=== PATIENT | male | born 1955 | race Caucasian/White ===

== ENCOUNTER → 2016-12-21 | Outpatient (CLI) | payer MEDICARE, MEDICAID ==
[~2016-12-21] MED LIST: ALBU8.5H2 IH; FRSM40T PO; HCTZ; KCL10CCR PO; LISINOPRIL; Prednisone PO; RT-ADVAIR1 IH; RT-ALBUTEROL SULF 2.5 MG/3 ML PRE-MIX VIAL INH ONE; RT-ALBUTEROL SULF 2.5 MG/3 ML PRE-MIX VIAL ONE; Tiotropium Bromide IH; b/p med
== END ==
LOC: RT 15:36
PROVIDERS: ATTEND Nurse Practitioner Family
DX: J44.9 Chronic obstructive pulmonary disease, unspecified (principal); J96.11 Chronic respiratory failure with hypoxia
CPT/HCPCS: 94060; 94640; 94726; 94729

== ENCOUNTER 2017-03-05 23:49 | Inpatient (IN) | payer MEDICARE, MEDICAID ==
[~2017-03-05] VITALS: Ht 160 cm; Wt 75.3 kg
[2017-03-05] MEDS: NS IV 1000 ML 1,000 ML IV SCH (22:45)
[~2017-03-05 23:49] MED LIST changes: -RT-ALBUTEROL SULF 2.5 MG/3 ML PRE-MIX VIAL INH ONE; -RT-ALBUTEROL SULF 2.5 MG/3 ML PRE-MIX VIAL ONE
[2017-03-05] MEDS ORDERED: NS IV 1000 ML 1,000 ML IV ONE (23:57)
[2017-03-05] MEDS ORDERED: RT-ALBUTEROL SULF 2.5 MG/3 ML PRE-MIX VIAL INH STA (23:57)
[2017-03-06] VITALS (56 sets, daily range): BP systolic 59–158; BP diastolic 9–100
[2017-03-06] MEDS ORDERED: RT-IPRATROPIUM (ATROVENT) 0.5MG/2.5ML AMP IH ONE
[2017-03-06] MEDS ORDERED: RT-ALBUTEROL SULF 2.5 MG/3 ML PRE-MIX VIAL ONE
[2017-03-06] MEDS ORDERED: methylPREDNISolone 125 MG (Solu-MEDROL) VIAL IVP ONE
[2017-03-06 00:15] LABS: BASOPHILS % (AUTO) 0 % (0-10); EOSINOPHILS # (AUTO) 0.1 10^3/uL (0.0-0.3); EOSINOPHILS % (AUTO) 1 % (0-10); LYMPHOCYTES # (AUTO) 0.9 X 10^3 (1.0-4.0); MEAN CORPUSCULAR HEMOGLOBIN 30 PG (25-34); MEAN CORPUSCULAR HGB CONC 31 G/DL (32-36); MEAN CORPUSCULAR VOLUME 98 FL (80-99); MEAN PLATELET VOLUME 9.8 FL (7.4-10.4); NEUTROPHILS # (AUTO) 10.6 X 10^3 (1.8-7.8); PLATELET COUNT 208 10^3/uL (130-400); RED CELL DISTRIBUTION WIDTH 12.6 % (10.0-14.5); WHITE BLOOD COUNT 12.6 10^3/uL (4.3-11.0)
[2017-03-06] MEDS ORDERED: MONT10TA24 PO (00:15)
[2017-03-06] MEDS ORDERED: FLUT1AER INH (00:15)
[2017-03-06 00:16] LABS: LYMPHOCYTES % (AUTO) 9 % (12-44); NEUTROPHILS % (AUTO) 83 % (42-75)
[2017-03-06 00:17] LABS: MONOCYTES % (AUTO) 7 % (0-12)
[2017-03-06 00:23] LABS: ABG BASE EXCESS 21.2 MMOL/L (-2.5-2.5); ABG OXYGEN SATURATION 99 % (94-100); ABG PO2 131 MMHG (79-93); ABG TCO2 54.5 MMOL/L (21.0-31.0)
[2017-03-06 00:24] LABS: ALLENS TEST YES-POS
[2017-03-06 00:24] LABS: PROTHROMBIN TIME PATIENT 12.8 SEC (12.2-14.7)
[2017-03-06 00:26] LABS: ABG HCO3 50 MMOL/L (23-27); ABG PCO2 139 MMHG (35-45); ABG PH 7.18 (7.37-7.43)
[2017-03-06 00:36] LABS: ALANINE AMINOTRANSFERASE 11 U/L (0-55); ALCOHOL < 10 MG/DL (<10); ANION GAP 15 MMOL/L (5-14); ASPARTATE AMINO TRANSFERASE 16 U/L (5-34); BILIRUBIN,TOTAL 0.2 MG/DL (0.1-1.0); BLOOD UREA NITROGEN 23 MG/DL (7-18); BUN/CREATININE RATIO 34; CALCIUM 9.5 MG/DL (8.5-10.1); CARBON DIOXIDE 40 MMOL/L (21-32); CHLORIDE 90 MMOL/L (98-107); CREATININE SERUM 0.67 MG/DL (0.60-1.30); GFR ESTIMATED > 60; GLUCOSE 174 MG/DL (70-105); POTASSIUM 4.1 MMOL/L (3.6-5.0); SODIUM 145 MMOL/L (135-145); TOTAL PROTEIN 7.6 G/DL (6.4-8.2)
--- NOTE | 2017-03-06 00:54 | ED Respiratory ---
General Chief Complaint: Respiratory Problems Stated Complaint: SOB Nursing Triage Note: EMS arrival of pt with SOA for several days but significantly worse the last 4 hrs. Found on home O2 concentrator on 8L with 54% sat. EMS states he has missed doing some breathing txs. EMS DuoNeb being given with improvement to 97% and some wheezing now noted Source: patient Exam Limitations: no limitations History of Present Illness Time seen by provider: 23:51 Initial Comments This 61-year-old patient is brought to the emergency room via EMS in respiratory distress. EMS reports that he was on 8 L on his home concentrator with an oxygen saturation of 54 percent. He promptly received a DuoNeb treatment and his oxygen saturation on high flow mask improved to 97 percent. He has been afebrile but has had increasing dyspnea over the last 4 days and has been in distress for about 4 hours. He has missed some of his nebulizer treatments which he is supposed to do 4 times daily. He also continues to smoke. Review of chart notes that he previously drank alcohol daily but he now states his alcohol consumption is "occasional". His primary care provider is Norbert Soni. EMS reports patient had confusion which is now improving. Patient continues to smoke despite his respiratory difficulties. Allergies and Home Medications Allergies Coded Allergies: No Known Drug Allergies (Unverified , 10/02/09) Home Medications Albuterol 8.5 Gm Hfa.aer.ad, 1 PUFF IH Q4H PRN for WHEEZING, #1 Ref 1 1 PUFFS Prescribed by: SAROJ SHAFER on 01/29/15 1145 Fluticasone/Salmeterol 1 Puff Puff, 2 PUFF IH BID@08,20, #1 Ref 1 Prescribed by: SAROJ SHAFER on 01/29/15 1145 Fluticasone/Vilanterol 1 Each Blst.w.dev, #60 (Reported) Montelukast Sodium 10 Mg Tablet, #30 (Reported) [Tiotropium Otto] 1 INH AERP, 0 INH IH DAILY@0800 for 30 Days, Ref 1 Prescribed by: SAROJ SHAFER on 01/29/15 1145 Constitutional: no symptoms reported EENTM: no symptoms reported Respiratory: see HPI Cardiovascular: no symptoms reported Gastrointestinal: no symptoms reported Genitourinary: no symptoms reported Musculoskeletal: no symptoms reported Skin: no symptoms reported Psychiatric/Neurological: See HPI Hematologic/Lymphatic: No Symptoms Reported Immunological/Allergic: no symptoms reported Past Nmxqzlm-Qwuuvt-Zahncw Hx Patient Social History Alcohol Use: Denies Use Recreational Drug Use: No Smoking Status: Current Everyday Smoker Type Used: Cigarettes Recent Foreign Travel: No Contact w/Someone Who Travel: No Recent Infectious Disease Expo: No Immunizations Up To Date Tetanus Booster (TDap): Unknown Surgeries HX Surgeries: Yes (HERNIA,LIVER LAC.,LEFT LEG PIN,JAW SURG.) Surgeries: Abdominal, Orthopedic Respiratory Hx Respiratory Disorders: Yes (tobacco is about) Respiratory Disorders: Asthma, Pneumonia, COPD Cardiovascular Hx Cardiac Disorders: Yes (diastolic heart failure with normal ejection fraction) Cardiac Disorders: High Cholesterol, Hypertension, Valvular Heart Disease Neurological Hx Neurological Disorders: No Reproductive System Hx Reproductive Disorders: No Genitourinary Hx Genitourinary Disorders: No Gastrointestinal Hx Gastrointestinal Disorders: No Musculoskeletal Hx Musculoskeletal Disorders: Yes Musculoskeletal Disorders: Degenerate Disk Disease Endocrine Hx Endocrine Disorders: No HEENT HX ENT Disorders: No Cancer Hx Cancer: No Psychosocial Hx Psychiatric Problems: Yes (history of alcohol dependence) Integumentary HX Skin/Integumentary Disorder: No Blood Transfusions Hx Blood Disorders: No Family Medical History Significant Family History: No Pertinent Family Hx Family Medial History: Completed stroke 19 MOTHER FH: brain tumor 19 FATHER FH: brain tumor 19 FATHER No Family History of: AIDS Physical Exam Vital Signs Vital Sign - Last 12Hours 03/05/17 23:52 Temp 98.0 Pulse 112 Resp 40 B/P (MAP) 164/92 Pulse Ox 99 O2 Delivery Simple Mask O2 Flow Rate 8.00 Capillary Refill : Less Than 3 Seconds General Appearance: WD/WN, severe distress, thin HEENT: PERRL/EOMI, normal ENT inspection Neck: normal inspection Respiratory: respiratory distress, decreased breath sounds, wheezing Cardiovascular: no edema, tachycardia Gastrointestinal: normal bowel sounds, non tender, soft Extremities: normal inspection, no pedal edema 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, no motor/sensory deficits, alert, normal mood/affect, oriented x 3 Skin: normal color, warm/dry Focused Exam Lactic Acid Level Laboratory Tests Test 03/06/17 00:03 Lactic Acid Level 0.78 MMOL/L (0.50-2.00) Progress/Results/Core Measures Results/Orders Lab Results Laboratory Tests Test 03/06/17 00:03 03/06/17 00:09 Range/Units White Blood Count 12.6 H 4.3-11.0 10^3/uL Red Blood Count 4.50 4.35-5.85 10^6/uL Hemoglobin 13.6 13.3-17.7 G/DL Hematocrit 44 40-54 % Mean Corpuscular Volume 98 80-99 FL Mean Corpuscular Hemoglobin 30 25-34 PG Mean Corpuscular Hemoglobin Concent 31 L 32-36 G/DL Red Cell Distribution Width 12.6 10.0-14.5 % Platelet Count 208 130-400 10^3/uL Mean Platelet Volume 9.8 7.4-10.4 FL Neutrophils (%) (Auto) 83 H 42-75 % Lymphocytes (%) (Auto) 9 L 12-44 % Monocytes (%) (Auto) 7 0-12 % Eosinophils (%) (Auto) 1 0-10 % Basophils (%) (Auto) 0 0-10 % Neutrophils # (Auto) 10.6 H 1.8-7.8 X 10^3 Lymphocytes # (Auto) 0.9 L 1.0-4.0 X 10^3 Monocytes # (Auto) 1.0 0.0-1.0 X 10^3 Eosinophils # (Auto) 0.1 0.0-0.3 10^3/uL Basophils # (Auto) 0.0 0.0-0.1 10^3/uL Prothrombin Time 12.8 12.2-14.7 SEC INR Comment 1.0 0.8-1.4 Activated Partial Thromboplast Time 26 24-35 SEC Sodium Level 145 135-145 MMOL/L Potassium Level 4.1 3.6-5.0 MMOL/L Chloride Level 90 L 98-107 MMOL/L Carbon Dioxide Level 40 H 21-32 MMOL/L Anion Gap 15 H 5-14 MMOL/L Blood Urea Nitrogen 23 H 7-18 MG/DL Creatinine 0.67 0.60-1.30 MG/DL Estimat Glomerular Filtration Rate > 60 BUN/Creatinine Ratio 34 Glucose Level 174 H 70-105 MG/DL Lactic Acid Level 0.78 0.50-2.00 MMOL/L Calcium Level 9.5 8.5-10.1 MG/DL Total Bilirubin 0.2 0.1-1.0 MG/DL Aspartate Amino Transf (AST/SGOT) 16 5-34 U/L Alanine Aminotransferase (ALT/SGPT) 11 0-55 U/L Alkaline Phosphatase 67 40-136 U/L Total Protein 7.6 6.4-8.2 G/DL Albumin 4.0 3.2-4.5 G/DL Serum Alcohol < 10 <10 MG/DL Blood Gas Puncture Site L BRACH Blood Gas Patient Temperature 98.0 Arterial Blood pH 7.18 *L 7.37-7.43 Arterial Blood Partial Pressure CO2 139 *H 35-45 MMHG Arterial Blood Partial Pressure O2 131 H 79-93 MMHG Arterial Blood HCO3 50 *H 23-27 MMOL/L Arterial Blood Total CO2 54.5 H 21.0-31.0 MMOL/L Arterial Blood Oxygen Saturation 99 94-100 % Arterial Blood Base Excess 21.2 H -2.5-2.5 MMOL/L Tirso Test YES-POS Blood Gas Ventilator Setting NO Blood Gas Inspired Oxygen 5L My Orders Orders - HAO GOODRICH MD Cbc With Automated Diff (03/05/17 23:57) Comprehensive Metabolic Panel (03/05/17:57) Lactic Acid Analyzer (03/05/17 23:57) Blood Culture (03/05/17 23:57) Sputum Culture (03/05/17:57) Ua Culture If Indicated (03/05/17:57) Protime With Inr (03/05/17:57) Partial Thromboplastin Time (03/05/17:57) O2 (03/05/17:57) Saline Lock/Iv-Start (03/05/17 23:57) Saline Lock/Iv-Start (03/05/17 23:57) Vital Signs Adult Sepsis Patie Q1HR (03/05/17 23:57) Remove Rings In Anticipation O (03/05/17 23:57) Arterial Blood Gas (03/05/17 23:57) Methylprednisolone Sod Succ (Solu-Medrol (03/06/17 00:00) Ns Iv 1000 Ml (Sodium Chloride 0.9%) (03/05/17 23:57) Albuterol Pre-Mix Nebs (Rt) (Proventil P (03/05/17 23:57) Ipratropium 0.02% Neb Solution (Atrovent (03/06/17 00:00) Svn Sm Volume Nebulizer Rt-Rfs (03/05/17 23:57) Svn Sm Volume Nebulizer Rt-Rfs (03/05/17 23:57) Ekg Tracing (03/05/17 23:57) Monitor-Rhythm Ecg Trace Only (03/05/17 23:57) Chest 1 View, Ap/Pa Only (03/06/17 00:01) Albuterol Pre-Mix Nebs (Rt) (Proventil P (03/06/17 00:00) Alcohol (03/06/17 00:08) Medications Given in ED Current Medications Medications Dose Ordered Sig/Francisco J Route Start Time Stop Time Status Last Admin Dose Admin Ipratropium Otto 0.5 mg ONCE ONCE IH 03/06/17 00:00 03/06/17 00:02 DC 03/06/17 00:15 0.5 MG Methylprednisolone Sodium Succinate 125 mg ONCE ONCE IVP 03/06/17 00:00 03/06/17 00:02 DC 03/06/17 00:19 125 MG Sodium Chloride 1,000 ml @ 0 mls/hr Q0M ONCE IV 03/05/17 23:57 03/06/17 00:02 DC 03/06/17 00:19 0 MLS/HR Vital Signs/I&O Vital Sign - Last 12Hours 03/05/17 03/05/17 03/06/17 03/06/17 23:52 23:52 00:15 00:32 Temp 98.0 Pulse 112 116 Resp 40 27 B/P (MAP) 164/92 Pulse Ox 99 99 98 99 O2 Delivery Simple Mask Simple Mask O2 Flow Rate 8.00 50.00 Blood Pressure Mean: 116 Progress Note : Progress Note Patient was started on hour-long nebulizer treatment upon arrival. BiPAP was applied. Patient had severe hypercarbia on his ABG with respiratory acidosis. Admission to the ICU was sought. Patient received a liter of IV normal saline and Solu-Medrol 125 mg. He was stable on BiPAP in the ER with improving mental status. ECG Initial ECG Impression Date: March 06, 2017 Initial ECG Impression Time: 23:58 Initial ECG Rate: 110 Initial ECG Rhythm: S.Tach Comment Sinus tachycardia with no ST elevation or depression. Right axis deviation. No abnormal intervals. Diagnostic Imaging Diagonstic Imaging: Xray Plain Films/CT/US/NM/MRI: chest Comments Single view chest x-ray viewed by me. Report not yet available. Hyperinflation consistent with COPD. No adverse acute changes from prior. Departure Communication Time/Spoke to Admitting Phy: 00:40 Communication Case was reviewed with Dr. Woodward who agrees with admission to the ICU on BiPAP. Due to elevated WBC and significant respiratory failure, antibiotics will also be initiated. Impression Impression: Primary Impression: Acute and chronic respiratory failure ([id number]) Qualified Codes: J96.21 - Acute and chronic respiratory failure with hypoxia; J96.22 - Acute and chronic respiratory failure with hypercapnia Additional Impression: Altered mental status Qualified Codes: R41.82 - Altered mental status, unspecified Disposition: ADMITTED INPATIENT Condition: Improved Decision to Admit Reason: Admit from ER (General) Decision to Admit/Date: March 06, 2017 Time/Decision to Admit Time: 23:51 Departure-Patient Inst. Referrals: JAMIL HALE DO (PCP/Family) Primary Care Physician HAO GOODRICH MD March 06, 2017 00:54
[2017-03-06] MEDS ORDERED: RT-ALBUTEROL/IPRATROPIUM 3 ML (DUONEB) VIAL ONE (02:08)
[2017-03-06 02:27] LABS: ABG BASE EXCESS 17.7 MMOL/L (-2.5-2.5); ABG OXYGEN SATURATION 99 % (94-100); ABG PO2 120 MMHG (79-93); ABG TCO2 49.9 MMOL/L (21.0-31.0)
[2017-03-06 02:29] LABS: ALLENS TEST YES-POS; PATIENT TEMP 98.2
[2017-03-06 02:31] LABS: ABG HCO3 46 MMOL/L (23-27); ABG PCO2 122 MMHG (35-45)
[2017-03-06] MEDS ORDERED: NS IV 1000 ML 1,000 ML ONE (02:37)
[2017-03-06] MEDS ORDERED: LEVOFLOXACIN 750 MG/150 ML IV 150 ML IV ONE ×2 (02:38→02:45)
[2017-03-06] MEDS ORDERED: RT-ALBUTEROL SULF 2.5 MG/3 ML PRE-MIX VIAL IH PRN (03:00)
[2017-03-06] MEDS ORDERED: PROPOFOL DRIP (ICU) 100 ML IV ONE (03:39)
[2017-03-06 04:27] LABS: BILIRUBIN,URINE NEGATIVE (NEGATIVE); KETONES,URINE 1+ (NEGATIVE); LEUKOCYTE ESTERASE ,URINE NEGATIVE (NEGATIVE); NITRITE,URINE NEGATIVE (NEGATIVE); PH,URINE 5 (5-9); PROTEIN,URINE 4+ (NEGATIVE); UROBILINOGEN,URINE NORMAL (NORMAL)
[2017-03-06] MEDS: NS IV 1000 ML 1,000 ML IV SCH ×5 (04:28→08:36)
[2017-03-06] MEDS ORDERED: PROPOFOL DRIP (ICU) 100 ML IV SCH (04:30)
[2017-03-06 04:40] LABS: SQUAMOUS EPITHELIAL CELL,UR RARE /HPF; WBC,URINE 0-2 /HPF
[2017-03-06 04:43] LABS: BASOPHILS % (AUTO) 0 % (0-10); EOSINOPHILS % (AUTO) 0 % (0-10); LYMPHOCYTES # (AUTO) 0.2 X 10^3 (1.0-4.0); LYMPHOCYTES % (AUTO) 2 % (12-44); MEAN CORPUSCULAR HEMOGLOBIN 30 PG (25-34); MEAN CORPUSCULAR HGB CONC 30 G/DL (32-36); MEAN CORPUSCULAR VOLUME 102 FL (80-99); MEAN PLATELET VOLUME 10.3 FL (7.4-10.4); MONOCYTES # (AUTO) 0.1 X 10^3 (0.0-1.0); MONOCYTES % (AUTO) 1 % (0-12); NEUTROPHILS % (AUTO) 97 % (42-75); PLATELET COUNT 184 10^3/uL (130-400); RED BLOOD COUNT 4.07 10^6/uL (4.35-5.85); RED CELL DISTRIBUTION WIDTH 12.7 % (10.0-14.5); WHITE BLOOD COUNT 9.2 10^3/uL (4.3-11.0)
[2017-03-06 05:07] LABS: BAND NEUTROPHILS 1 %; BASOPHILS % (MANUAL) 0 %; EOSINOPHILS % (MANUAL) 1 %; LYMPHOCYTES % (MANUAL) 2 %; NEUTROPHILS % (MANUAL) 96 %
[2017-03-06] MEDS: fentaNYL INJECTION 100 MCG/2 ML AMP IVP PRN ×2 (05:08→08:06)
[2017-03-06 05:21] LABS: ALANINE AMINOTRANSFERASE 12 U/L (0-55); ALBUMIN 3.5 G/DL (3.2-4.5); ANION GAP 11 MMOL/L (5-14); ASPARTATE AMINO TRANSFERASE 20 U/L (5-34); BILIRUBIN,TOTAL 0.1 MG/DL (0.1-1.0); BLOOD UREA NITROGEN 21 MG/DL (7-18); BUN/CREATININE RATIO 32; CALCIUM 8.7 MG/DL (8.5-10.1); CARBON DIOXIDE 37 MMOL/L (21-32); CHLORIDE 94 MMOL/L (98-107); CREATININE SERUM 0.65 MG/DL (0.60-1.30); GFR ESTIMATED > 60; GLUCOSE 149 MG/DL (70-105); MAGNESIUM 2.2 MG/DL (1.8-2.4); PHOSPHORUS 2.3 MG/DL (2.3-4.7); POTASSIUM 4.9 MMOL/L (3.6-5.0); SODIUM 142 MMOL/L (135-145); TOTAL PROTEIN 6.8 G/DL (6.4-8.2)
[2017-03-06 05:27] LABS: ABG BASE EXCESS 14.1 MMOL/L (-2.5-2.5); ABG HCO3 39 MMOL/L (23-27); ABG OXYGEN SATURATION 100 % (94-100); ABG PCO2 62 MMHG (35-45); ABG PH 7.42 (7.37-7.43); ABG PO2 134 MMHG (79-93); ABG TCO2 41.3 MMOL/L (21.0-31.0); ALLENS TEST YES-POS
[2017-03-06 05:28] LABS: PATIENT TEMP 98.9
[2017-03-06] MEDS ORDERED: NS IV 500 ML 500 ML IV ONE (05:45)
[2017-03-06] MEDS: RT-ALBUTEROL/IPRATROPIUM 3 ML (DUONEB) VIAL INH SCH ×5 (06:25→21:50)
[2017-03-06] MEDS: LEVOFLOXACIN 750 MG/150 ML IV 150 ML IV SCH (08:06)
[2017-03-06] MEDS: CHLORHEXIDINE 0.12% SOLN 15 ML (PERIDEX) UDC PO SCH ×2 (08:06→21:29)
[2017-03-06] MEDS: inSUlin (REGULAR) HUMAN 1 UNIT/0.01 ML (CHARGE PER UNIT) SC SCH ×4 (08:24→20:23)
[2017-03-06] MEDS ORDERED: SUCCINYLCHOLINE INJ 100 MG/5 ML SYR INJ ONE (08:41)
[2017-03-06] MEDS ORDERED: ETOMIDATE IV SOLN 20 MG/10 ML VIAL IV ONE (08:41)
[2017-03-06] MEDS ORDERED: PANTOPRAZOLE 40 MG/10 ML (PROTONIX) VIAL IV ONE (09:00)
--- NOTE | 2017-03-06 09:30 | Diagnostic Imaging Report ---
INDICATION: Respiratory distress. Study compared 01/25/2015. FINDINGS: Air trapping and COPD chronic. Right pleural fluid resolved. No focal consolidation, effusion, pneumothorax, or failure pattern. IMPRESSION: No acute-appearing abnormality. Dictated by: Dictated on workstation # [id number]
--- NOTE | 2017-03-06 09:33 | History & Physicial (CHS) ---
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 Pulse 88 81 79 75 Resp 21 17 20 18 B/P (MAP) 131/94 110/77 113/79 100/70 Pulse Ox 98 98 98 97 O2 Flow Rate 30.00 30.00 30.00 30.00 03/08/17 03/08/17/03/08/17 06:30 06:31 06:45 07:00 Pulse 75 64 89 79 Resp 18 18 31 18 B/P (MAP) 104/70 178/94 108/71 Pulse Ox 98 100 83 97 O2 Flow Rate 30.00 30.00 30.00 FiO2 30 03/08/17 03/08/17 03/08/17 03/08/17 07:00 08:00 08:00 08:00 Temp 97.7 Pulse 79 73 Resp 18 B/P (MAP) 116/76 Pulse Ox 96 O2 Flow Rate 30.00 30.00 FiO2 30 03/08/17 03/08/17 03/08/17 03/08/17 08:15 09:00 10:00 10:07 Pulse 73 71 68 66 Resp 18 17 17 18 B/P (MAP) 82/69 86/67 Pulse Ox 99 97 100 100 O2 Flow Rate 30.00 30.00 FiO2 30 30 03/08/17 03/08/17 03/08/17 03/08/17 10:15 11:00 12:00 12:00 Pulse 83 79 Resp 19 20 B/P (MAP) 107/71 103/67 Pulse Ox 94 95 O2 Flow Rate 21.00 21.00 21.00 FiO2 21 03/08/17 03/08/17 03/08/17 03/08/17 12:00 12:38 13:00 13:00 Temp 98.9 Pulse 76 73 75 Resp 19 18 B/P (MAP) 94/68 Pulse Ox 96 96 O2 Flow Rate 21.00 21.00 FiO2 21 03/08/17 03/08/17 03/08/17 03/08/17 14:00 14:37 14:37 15:00 Pulse 95 87 90 Resp 27 22 21 B/P (MAP) 130/88 122/75 Pulse Ox 92 89 97 O2 Flow Rate 21.00 30.00 30.00 FiO2 21 03/08/17 03/08/17 03/08/17 03/08/17 16:00 16:00 16:00 16:00 Temp 99.6 Pulse 84 82 Resp 22 23 B/P (MAP) 110/71 Pulse Ox 96 96 O2 Flow Rate 30.00 30.00 FiO2 30 50 03/08/17 03/08/17 03/08/17 17:00 18:00 19:00 Pulse 84 78 82 Resp 22 20 23 B/P (MAP) 104/74 109/71 Pulse Ox 96 94 96 O2 Flow Rate 30.00 30.00 FiO2 50 Capillary Refill : Less Than 3 Seconds General Appearance: WD/WN, no apparent distress, other (intubated, sedated) HEENT: PERRL/EOMI, normal ENT inspection Neck: non-tender, full range of motion, supple, normal inspection Respiratory: no respiratory distress, no accessory muscle use, other (wheezing bilaterally, rhonchi c/w COPD) Cardiovascular: regular rate, rhythm, no edema, no gallop, no JVD, no murmur Gastrointestinal: normal bowel sounds, non tender, soft, no organomegaly, no pulsatile mass Extremities: non-tender, normal inspection, no pedal edema, no calf tenderness , normal capillary refill Neurologic/Psychiatric: other (unable to obtain due to sedation) Skin: normal color, warm/dry Assessment/Plan Assessment/Plan Admission Dx ACUTE ON CHRONIC RESPIRATORY FAILURE SEVERE COPD EXACERBATION ACUTE RESPIRATORY ACIDOSIS HYPERGLYCEMIA Plan ACUTE ON CHRONIC RESPIRATORY FAILURE SEVERE COPD EXACERBATION ADM: Patient now intubated with improvement in blood gases. Will continue MV for another 24 hours, then try weaning parameters tomorrow morning with plans to extubate if he passes. Have him on Zithromax and LEvaquin, steroids at present. Patient already showing improvement, was able to communicate slightly with me but not to really answer questions. ACUTE RESPIRATORY ACIDOSIS ADM: Improving with mechanical ventilation. HYPERGLYCEMIA ADM: No h/o DMT2, likely steroid related GI Proph: Protonix DVT Proph: SCDs Diagnosis/Problems: Clinical Quality Measures DVT/VTE Risk/Contraindication: Risk Factor Score Per Nursin RFS Level Per Nursing on Admit: 4+=Very High Copy Copies To 1: DANITA JALLOH APRN, MD March 06, 2017 09:33
[2017-03-06] MEDS: PROPOFOL DRIP (ICU) 100 ML IV SCH ×3 (11:47→20:56)
--- NOTE | 2017-03-06 11:55 | Diagnostic Imaging Report ---
INDICATION: Respiratory failure. Frontal chest obtained at 04:10 a.m. and compared with same day at 12:19 a.m. New ET tube is seen with tip overlying mid trachea. NG tube is seen with tip in the proximal stomach. Heart is normal in size. Mediastinal silhouette is unremarkable. There is hyperinflation compatible with COPD. There is no acute infiltrate, pneumothorax, or pleural fluid. IMPRESSION: COPD changes with no acute infiltrate or pleural fluid. ET tube tip overlies mid trachea. NG tube tip overlying proximal stomach. Dictated by: Dictated on workstation # [id number]
[2017-03-06] MEDS: PANTOPRAZOLE 40 MG/10 ML (PROTONIX) VIAL IV SCH (21:29)
[2017-03-06] MEDS ORDERED: NS IV 1000 ML 1,000 ML IV SCH (23:15)
[2017-03-07] VITALS (89 sets, daily range): BP systolic 78–163; BP diastolic 58–118
[2017-03-07] MEDS: inSUlin (REGULAR) HUMAN 1 UNIT/0.01 ML (CHARGE PER UNIT) SC SCH ×6 (00:22→19:28)
[2017-03-07 00:55] LABS: BASOPHILS % (AUTO) 0 % (0-10); EOSINOPHILS % (AUTO) 0 % (0-10); LYMPHOCYTES # (AUTO) 0.8 X 10^3 (1.0-4.0); LYMPHOCYTES % (AUTO) 7 % (12-44); MEAN CORPUSCULAR HEMOGLOBIN 30 PG (25-34); MEAN CORPUSCULAR HGB CONC 30 G/DL (32-36); MEAN CORPUSCULAR VOLUME 98 FL (80-99); MEAN PLATELET VOLUME 9.9 FL (7.4-10.4); MONOCYTES # (AUTO) 1.8 X 10^3 (0.0-1.0); MONOCYTES % (AUTO) 14 % (0-12); NEUTROPHILS # (AUTO) 10.1 X 10^3 (1.8-7.8); NEUTROPHILS % (AUTO) 79 % (42-75); PLATELET COUNT 145 10^3/uL (130-400); RED BLOOD COUNT 3.52 10^6/uL (4.35-5.85); RED CELL DISTRIBUTION WIDTH 13.3 % (10.0-14.5); WHITE BLOOD COUNT 12.8 10^3/uL (4.3-11.0)
[2017-03-07 01:15] LABS: ALANINE AMINOTRANSFERASE 11 U/L (0-55); ALBUMIN 2.9 G/DL (3.2-4.5); ANION GAP 8 MMOL/L (5-14); ASPARTATE AMINO TRANSFERASE 25 U/L (5-34); BILIRUBIN,TOTAL 0.3 MG/DL (0.1-1.0); BLOOD UREA NITROGEN 24 MG/DL (7-18); BUN/CREATININE RATIO 35; CALCIUM 8.4 MG/DL (8.5-10.1); CARBON DIOXIDE 34 MMOL/L (21-32); CHLORIDE 101 MMOL/L (98-107); CREATININE SERUM 0.68 MG/DL (0.60-1.30); GFR ESTIMATED > 60; GLUCOSE 102 MG/DL (70-105); MAGNESIUM 1.5 MG/DL (1.8-2.4); PHOSPHORUS 1.5 MG/DL (2.3-4.7); POTASSIUM 3.6 MMOL/L (3.6-5.0); SODIUM 143 MMOL/L (135-145); TOTAL PROTEIN 5.3 G/DL (6.4-8.2)
[2017-03-07] MEDS: MAGNESIUM 1 GM/100 ML IVPB 100 ML IV SCH ×2 (01:39→02:48)
[2017-03-07] MEDS: POTASSIUM CL 10MEQ/50ML IVPB 50 ML IV SCH ×2 (01:39→02:48)
[2017-03-07] MEDS ORDERED: LACTATED RINGERS 1,000 ML IV ONE ×2 (01:45→05:28)
[2017-03-07] MEDS: RT-ALBUTEROL/IPRATROPIUM 3 ML (DUONEB) VIAL INH SCH ×6 (01:58→22:16)
[2017-03-07] MEDS: PROPOFOL DRIP (ICU) 100 ML IV SCH ×2 (03:51→09:21)
[2017-03-07 04:23] LABS: ABG HCO3 35 MMOL/L (23-27); ABG OXYGEN SATURATION 97 % (94-100); ABG PCO2 56 MMHG (35-45); ABG PH 7.41 (7.37-7.43); ABG PO2 73 MMHG (79-93); ABG TCO2 36.8 MMOL/L (21.0-31.0)
[2017-03-07 04:28] LABS: ALLENS TEST YES-POS
[2017-03-07 04:29] LABS: PATIENT TEMP 97.2
[2017-03-07] MEDS ORDERED: LACTATED RINGERS 1,000 ML IV SCH (05:45)
[2017-03-07] MEDS ORDERED: POTASSIUM CL 10MEQ/50ML IVPB 50 ML IV SCH (06:00)
[2017-03-07] MEDS ORDERED: MAGNESIUM 1 GM/100 ML IVPB 100 ML IV SCH (06:00)
[2017-03-07 06:09] LABS: BASOPHILS % (AUTO) 0 % (0-10); EOSINOPHILS % (AUTO) 0 % (0-10); LYMPHOCYTES # (AUTO) 1.1 X 10^3 (1.0-4.0); LYMPHOCYTES % (AUTO) 10 % (12-44); MEAN CORPUSCULAR HEMOGLOBIN 30 PG (25-34); MEAN CORPUSCULAR HGB CONC 30 G/DL (32-36); MEAN CORPUSCULAR VOLUME 98 FL (80-99); MEAN PLATELET VOLUME 10.4 FL (7.4-10.4); MONOCYTES # (AUTO) 1.9 X 10^3 (0.0-1.0); MONOCYTES % (AUTO) 16 % (0-12); NEUTROPHILS # (AUTO) 8.8 X 10^3 (1.8-7.8); NEUTROPHILS % (AUTO) 74 % (42-75); PLATELET COUNT 138 10^3/uL (130-400); RED BLOOD COUNT 3.67 10^6/uL (4.35-5.85); RED CELL DISTRIBUTION WIDTH 13.6 % (10.0-14.5); WHITE BLOOD COUNT 11.8 10^3/uL (4.3-11.0)
[2017-03-07 06:29] LABS: ANION GAP 8 MMOL/L (5-14); BLOOD UREA NITROGEN 23 MG/DL (7-18); BUN/CREATININE RATIO 34; CALCIUM 8.5 MG/DL (8.5-10.1); CARBON DIOXIDE 33 MMOL/L (21-32); CHLORIDE 102 MMOL/L (98-107); CREATININE SERUM 0.67 MG/DL (0.60-1.30); GFR ESTIMATED > 60; GLUCOSE 96 MG/DL (70-105); MAGNESIUM 2.2 MG/DL (1.8-2.4); POTASSIUM 3.8 MMOL/L (3.6-5.0); SODIUM 143 MMOL/L (135-145)
[2017-03-07 06:43] LABS: ALBUMIN 2.8 G/DL (3.2-4.5); BILIRUBIN,DIRECT 0.1 MG/DL (0.0-0.3); BILIRUBIN,INDIRECT 0.1 MG/DL; BILIRUBIN,TOTAL 0.2 MG/DL (0.1-1.0); TOTAL PROTEIN 5.3 G/DL (6.4-8.2)
[2017-03-07] MEDS: NS IV 1000 ML 1,000 ML IV SCH (07:06)
[2017-03-07] MEDS: PANTOPRAZOLE 40 MG/10 ML (PROTONIX) VIAL IV SCH ×2 (08:09→20:33)
[2017-03-07] MEDS: LEVOFLOXACIN 750 MG/150 ML IV 150 ML IV SCH (08:09)
[2017-03-07] MEDS: AZITHROMYCIN 500 MG/NS 250 ML IVPB IV SCH ×2 (08:10)
--- NOTE | 2017-03-07 09:02 | Progress Note (SOAP) ---
Subjective Subjective/Events-last exam Patient awake, alert this morning despite 40-50 of propofol. Has a tremor on right hand making it difficult to point to his letters (so he can spell things for the nurse). Wanting to eat and wants the tube out. Date seen by provider: March 07, 2017 Review of Systems BERNABE Objective Exam Last Set of Vital Signs Vital Signs Date Time Temp Pulse Resp B/P (MAP) Pulse Ox O2 Delivery O2 Flow Rate FiO2 03/07/17 08:03 77 18 98 30 03/07/17 06:45 132/84 30.00 03/07/17 04:00 97.2 03/05/17 23:52 Simple Mask Capillary Refill : Less Than 3 Seconds I&O Bad tableGeneral: Alert, Cooperative Lungs: Other (wheezing, riding the vent this morning with poor effort) Heart: Regular Rate, Normal S1, Normal S2, No Murmurs, Gallops, Rubs Abdomen: Normal Bowel Sounds, Soft, No Tenderness, No Hepatosplenomegaly, No Masses Extremities: No Cyanosis, No Edema, Normal Pulses Results/Procedures Lab Laboratory Tests 03/06/17 12:05: Glucometer 128H 03/06/17 16:43: Glucometer 101 03/06/17 19:55: Glucometer 104 03/07/17 00:13: Glucometer 97 03/07/17 00:48: White Blood Count 12.8H, Red Blood Count 3.52L, Hemoglobin 10.4L, Hematocrit 34L , Mean Corpuscular Volume 98, Mean Corpuscular Hemoglobin 30, Mean Corpuscular Hemoglobin Concent 30L, Red Cell Distribution Width 13.3, Platelet Count 145, Mean Platelet Volume 9.9, Neutrophils (%) (Auto) 79H, Lymphocytes (%) (Auto) 7L , Monocytes (%) (Auto) 14H, Eosinophils (%) (Auto) 0, Basophils (%) (Auto) 0, Neutrophils # (Auto) 10.1H, Lymphocytes # (Auto) 0.8L, Monocytes # (Auto) 1.8H, Eosinophils # (Auto) 0.0, Basophils # (Auto) 0.0, Sodium Level 143, Potassium Level 3.6, Chloride Level 101, Carbon Dioxide Level 34H, Anion Gap 8, Blood Urea Nitrogen 24H, Creatinine 0.68, Estimat Glomerular Filtration Rate > 60, BUN /Creatinine Ratio 35, Glucose Level 102, Calcium Level 8.4L, Phosphorus Level 1.5L, Magnesium Level 1.5L, Total Bilirubin 0.3, Aspartate Amino Transf (AST/ SGOT) 25, Alanine Aminotransferase (ALT/SGPT) 11, Alkaline Phosphatase 42, Total Protein 5.3L, Albumin 2.9L 03/07/17 03:50: Glucometer 112H 03/07/17 04:15: Blood Gas Puncture Site R RAD, Blood Gas Patient Temperature 97.2, Arterial Blood pH 7.41, Arterial Blood Partial Pressure CO2 56H, Arterial Blood Partial Pressure O2 73L, Arterial Blood HCO3 35H, Arterial Blood Total CO2 36.8H, Arterial Blood Oxygen Saturation 97, Arterial Blood Base Excess 10.0H, Tirso Test YES-POS, Blood Gas Ventilator Setting YES, Blood Gas Inspired Oxygen 30% FIO2 03/07/17 06:00: White Blood Count 11.8H, Red Blood Count 3.67L, Hemoglobin 10.9L, Hematocrit 36L , Mean Corpuscular Volume 98, Mean Corpuscular Hemoglobin 30, Mean Corpuscular Hemoglobin Concent 30L, Red Cell Distribution Width 13.6, Platelet Count 138, Mean Platelet Volume 10.4, Neutrophils (%) (Auto) 74, Lymphocytes (%) (Auto) 10L , Monocytes (%) (Auto) 16H, Eosinophils (%) (Auto) 0, Basophils (%) (Auto) 0, Neutrophils # (Auto) 8.8H, Lymphocytes # (Auto) 1.1, Monocytes # (Auto) 1.9H, Eosinophils # (Auto) 0.0, Basophils # (Auto) 0.0, Sodium Level 143, Potassium Level 3.8, Chloride Level 102, Carbon Dioxide Level 33H, Anion Gap 8, Blood Urea Nitrogen 23H, Creatinine 0.67, Estimat Glomerular Filtration Rate > 60, BUN /Creatinine Ratio 34, Glucose Level 96, Calcium Level 8.5, Phosphorus Level 1.2L , Magnesium Level 2.2, Total Bilirubin 0.2, Aspartate Amino Transf (AST/SGOT) 27 , Alanine Aminotransferase (ALT/SGPT) 11, Alkaline Phosphatase 44, Total Protein 5.3L, Albumin 2.8L, Lactic Acid Level 2.84*H, Direct Bilirubin 0.1, Indirect Bilirubin 0.1, B-Type Natriuretic Peptide 29.9 03/07/17 08:03: Lactic Acid Level 2.48*H Microbiology 03/06/17 Blood Culture - Preliminary, Resulted No growth 03/06/17 Gram Stain - Final, Resulted 03/06/17 Sputum Culture - Preliminary, Resulted Gram Negative Ernesto Assessment/Plan Assessment/Plan Plan ACUTE ON CHRONIC RESPIRATORY FAILURE SEVERE COPD EXACERBATION ADM: Patient now intubated with improvement in blood gases. Will continue MV for another 24 hours, then try weaning parameters tomorrow morning with plans to extubate if he passes. Have him on Zithromax and LEvaquin, steroids at present. Patient already showing improvement, was able to communicate slightly with me but not to really answer questions. 03/07 - Patient growing GNR from sputum culture - will add zosyn for double coverage. continue the other two abx for now until we have speciation/ sensitivities. was also called with positive blood cultures, but these appear to be CONS; at this point, I do not think it is necessary to treat specifically or add vanc. He does not appear septic without fever or elevated WBC. ACUTE RESPIRATORY ACIDOSIS ADM: Improving with mechanical ventilation. 03/07: Believe that his sedation is a bit too aggressive, will change to Precedex so taht he can be more alert and we can try weaning vent again in the morning. LACTIC ACIDOSIS DECREASED URINE OUTPUT HYPOKALEMIA 03/07 - concerning that he is riding the vent, not urinating despite adequate MAP. have bolused several times, now on fluids. will monitor close I/O. check BMP at 4:00 to make sure creatinine not bumping. replace with KPhos as the KCl has now shown adequate rise in K. HYPERGLYCEMIA ADM: No h/o DMT2, likely steroid related 03/07 - Improved, on SSI ICU protocol GI Proph: Protonix DVT Proph: SCDs Diagnosis/Problems: Clinical Quality Measures DVT/VTE Risk/Contraindication: Risk Factor Score Per Nursin RFS Level Per Nursing on Admit: 4+=Very High DANITA FLOWERS MD March 07, 2017 09:02
--- NOTE | 2017-03-07 09:49 | Diagnostic Imaging Report ---
CHEST 1 VIEW, AP/PA ONLY Indication: Intubation. Comparison: 03/06/2017 Findings: Support Devices: Stable ET and enteric tubes. The proximal sidehole of the enteric tube is in the distal esophagus. Chest: Lungs are clear. No pleural effusion or pneumothorax. Normal cardiac silhouette. Impression: 1. Enteric tube has tip near the GE junction with the sidehole in the distal esophagus. Recommend advancement of approximately 5 cm. 2. No adverse changes. Dictated by: Dictated on workstation # [id number]
[2017-03-07] MEDS: CHLORHEXIDINE 0.12% SOLN 15 ML (PERIDEX) UDC PO SCH ×2 (09:55→20:33)
--- NOTE | 2017-03-07 09:59 | Diagnostic Imaging Report ---
CHEST 1 VIEW, AP/PA ONLY Indication: Placement of left subclavian central venous catheter. Comparison: 03/07/2017 Findings: Support Devices: Placement of left subclavian central venous catheter with tip terminating at the superior cavoatrial junction. Stable ET and enteric tubes. Again, the enteric tube has tip at the GE junction and could be advanced. Chest: No pneumothorax. Lungs remain clear. Normal cardiomediastinal silhouette. Impression: 1. Left subclavian central venous catheter has tip at the superior cavoatrial junction. 2. No pneumothorax. Dictated by: Dictated on workstation # [id number]
[2017-03-07] MEDS ORDERED: NS IV 500 ML 500 ML ONE (11:21)
[2017-03-07] MEDS ORDERED: NS (IVPB) 50 ML ONE (13:04)
[2017-03-07] MEDS: DEXMEDETOMIDINE INJECTION 400 MCG in NS (IVPB) 100 ML IV SCH ×2 (13:15→17:03)
[2017-03-07] MEDS ORDERED: POTASSIUM PHOSPHATE INJ 30 MM in NS (IVPB) 250 ML IV NR (13:15)
[2017-03-07] MEDS ORDERED: PIPERACILLIN SODIUM/TAZOBACTAM 4.5 GM in NS (IVPB) 100 ML IV NR (13:58)
[2017-03-07] MEDS ORDERED: D5 1/2 NS W/KCL 20 MEQ/L 1,000 ML IV ONE (14:38)
[2017-03-07] MEDS: D5 1/2 NS W/KCL 20 MEQ/L 1,000 ML IV SCH (14:48)
[2017-03-07] MEDS ORDERED: NS IV 500 ML 500 ML IV ONE (15:00)
[2017-03-07 16:34] LABS: ANION GAP 6 MMOL/L (5-14); BLOOD UREA NITROGEN 19 MG/DL (7-18); BUN/CREATININE RATIO 32; CALCIUM 8.2 MG/DL (8.5-10.1); CARBON DIOXIDE 32 MMOL/L (21-32); CHLORIDE 103 MMOL/L (98-107); CREATININE SERUM 0.59 MG/DL (0.60-1.30); GFR ESTIMATED > 60; GLUCOSE 119 MG/DL (70-105); POTASSIUM 3.8 MMOL/L (3.6-5.0); SODIUM 141 MMOL/L (135-145)
--- NOTE | 2017-03-07 19:05 | OPERATIVE REPORT ---
DATE OF SERVICE: 03/07/2017 DIAGNOSES: 1. Respiratory failure. 2. Hypotension. 3. Poor venous access. PROCEDURE PERFORMED: Central venous catheter placement. SURGEON: INDICATION FOR PROCEDURE: This gentleman has been on mechanical ventilation following the development of respiratory failure with preexisting COPD. Due to hypotension with the anticipation of vasopressor therapy and due to poor venous access, I was asked to place a central venous catheter prior. DESCRIPTION OF PROCEDURE: He was placed in Trendelenburg position and his left infraclavicular fossa, prepared and draped in the usual sterile manner. Subclavian vein was accessed and a floppy guide wire introduced in . The subcutaneous tract was gently dilated using a Silastic sheath and 20 cm, 7.5-Kinyarwanda triple-lumen central venous catheter advanced using Seldinger technique. All the channels were aspirated and flushes with heparinized solution. The catheter was insecure using a silk suture and a dressing applied. Chest x-ray confirmed satisfactory position of the central venous catheter with no pneumothorax. Job ID: [id number] DocumentID: [id number] Dictated Date: 03/07/2017 09:51:49 Automatic Head Sawyer Date: 03/07/2017 19:04:18 Dictated By: PINEDA LOERA MD
[2017-03-07] MEDS: PIPERACILLIN SODIUM/TAZOBACTAM 4.5 GM in NS (IVPB) 100 ML IV SCH (20:22)
[2017-03-08] VITALS (54 sets, daily range): BP systolic 82–178; BP diastolic 52–94
[2017-03-08] MEDS: inSUlin (REGULAR) HUMAN 1 UNIT/0.01 ML (CHARGE PER UNIT) SC SCH ×6 (00:18→20:20)
[2017-03-08] MEDS: D5 1/2 NS W/KCL 20 MEQ/L 1,000 ML IV SCH ×3 (00:54→23:42)
[2017-03-08] MEDS: RT-ALBUTEROL/IPRATROPIUM 3 ML (DUONEB) VIAL INH SCH ×6 (02:10→22:36)
[2017-03-08] MEDS: fentaNYL INJECTION 100 MCG/2 ML AMP IVP PRN ×3 (03:46→08:12)
[2017-03-08] MEDS: PIPERACILLIN SODIUM/TAZOBACTAM 4.5 GM in NS (IVPB) 100 ML IV SCH ×2 (03:46→13:47)
[2017-03-08 04:52] LABS: BASOPHILS % (AUTO) 0 % (0-10); EOSINOPHILS # (AUTO) 0.1 10^3/uL (0.0-0.3); EOSINOPHILS % (AUTO) 1 % (0-10); LYMPHOCYTES # (AUTO) 0.9 X 10^3 (1.0-4.0); LYMPHOCYTES % (AUTO) 8 % (12-44); MEAN CORPUSCULAR HEMOGLOBIN 29 PG (25-34); MEAN CORPUSCULAR HGB CONC 31 G/DL (32-36); MEAN CORPUSCULAR VOLUME 95 FL (80-99); MEAN PLATELET VOLUME 10.8 FL (7.4-10.4); MONOCYTES # (AUTO) 1.1 X 10^3 (0.0-1.0); MONOCYTES % (AUTO) 10 % (0-12); NEUTROPHILS # (AUTO) 9.3 X 10^3 (1.8-7.8); NEUTROPHILS % (AUTO) 81 % (42-75); PLATELET COUNT 157 10^3/uL (130-400); RED BLOOD COUNT 3.68 10^6/uL (4.35-5.85); RED CELL DISTRIBUTION WIDTH 14.2 % (10.0-14.5); WHITE BLOOD COUNT 11.4 10^3/uL (4.3-11.0)
[2017-03-08 05:11] LABS: ALANINE AMINOTRANSFERASE 12 U/L (0-55); ALBUMIN 2.8 G/DL (3.2-4.5); ANION GAP 6 MMOL/L (5-14); ASPARTATE AMINO TRANSFERASE 28 U/L (5-34); BILIRUBIN,TOTAL 0.4 MG/DL (0.1-1.0); BLOOD UREA NITROGEN 19 MG/DL (7-18); BUN/CREATININE RATIO 31; CALCIUM 8.1 MG/DL (8.5-10.1); CARBON DIOXIDE 30 MMOL/L (21-32); CHLORIDE 104 MMOL/L (98-107); CREATININE SERUM 0.61 MG/DL (0.60-1.30); GFR ESTIMATED > 60; GLUCOSE 117 MG/DL (70-105); MAGNESIUM 1.7 MG/DL (1.8-2.4); PHOSPHORUS 2.7 MG/DL (2.3-4.7); SODIUM 140 MMOL/L (135-145); TOTAL PROTEIN 5.2 G/DL (6.4-8.2)
[2017-03-08] MEDS: POTASSIUM CL 10MEQ/50ML IVPB 50 ML IV SCH (05:50)
[2017-03-08] MEDS: KCL 20 MEQ TAB (K-DUR) PO SCH (05:51)
[2017-03-08] MEDS: MAGNESIUM 1 GM/100 ML IVPB 100 ML IV SCH ×3 (05:51→07:01)
[2017-03-08 06:44] LABS: ABG BASE EXCESS 5.7 MMOL/L (-2.5-2.5); ABG HCO3 31 MMOL/L (23-27); ABG OXYGEN SATURATION 97 % (94-100); ABG PCO2 58 MMHG (35-45); ABG PH 7.35 (7.37-7.43); ABG PO2 89 MMHG (79-93); ABG TCO2 32.8 MMOL/L (21.0-31.0); ALLENS TEST YES-POS; PATIENT TEMP 98.7
[2017-03-08] MEDS: DEXMEDETOMIDINE INJECTION 400 MCG in NS (IVPB) 100 ML IV SCH ×2 (06:59→17:38)
[2017-03-08] MEDS: AZITHROMYCIN 500 MG/NS 250 ML IVPB IV SCH ×2 (08:11)
[2017-03-08] MEDS: LEVOFLOXACIN 750 MG/150 ML IV 150 ML IV SCH (08:11)
[2017-03-08] MEDS: PANTOPRAZOLE 40 MG/10 ML (PROTONIX) VIAL IV SCH ×2 (08:11→21:25)
--- NOTE | 2017-03-08 10:13 | Progress Note (SOAP) ---
Subjective Subjective/Events-last exam Patient again did not improve in terms of respiratory status. LA did improve despite being high most of the day. No rise in creatinine, UOP increased yesterday into overnight. Date seen by provider: March 08, 2017 Review of Systems UTO Objective Exam Last Set of Vital Signs Vital Signs Date Time Temp Pulse Resp B/P (MAP) Pulse Ox O2 Delivery O2 Flow Rate FiO2 03/08/17 08:15 73 18 99 30 03/08/17 08:00 116/76 30.00 03/08/17 00:00 97.9 03/07/17 09:21 Mechanical Ventilator Capillary Refill : Less Than 3 Seconds I&O Intake and Output 03/08/17 00:00 Intake Total 4500 ml Output Total 700 ml Balance 3800 ml Intake Oral 0 ml IV Total 4500 ml Output Urine Total 600 ml Gastric Drainage Total 100 ml General: Alert, Cooperative Lungs: Other (wheezing in all lung gonzalez) Heart: Regular Rate, Normal S1, Normal S2, No Murmurs, Gallops, Rubs Abdomen: Normal Bowel Sounds, Soft, No Tenderness, No Hepatosplenomegaly, No Masses Extremities: No Cyanosis, No Edema Skin: No Rashes, No Breakdown Results/Procedures Lab Laboratory Tests 03/07/17 11:18: Lactic Acid Level 2.86*H 03/07/17 14:14: Lactic Acid Level 0.88 03/07/17 14:19: Glucometer 88 03/07/17 16:00: Sodium Level 141, Potassium Level 3.8, Chloride Level 103, Carbon Dioxide Level 32, Anion Gap 6, Blood Urea Nitrogen 19H, Creatinine 0.59L, Estimat Glomerular Filtration Rate > 60, BUN/Creatinine Ratio 32, Glucose Level 119H, Calcium Level 8.2L 03/07/17 16:04: Glucometer 112H 03/07/17 19:27: Glucometer 132H 03/07/17 23:57: Glucometer 135H 03/08/17 04:10: White Blood Count 11.4H, Red Blood Count 3.68L, Hemoglobin 10.8L, Hematocrit 35L , Mean Corpuscular Volume 95, Mean Corpuscular Hemoglobin 29, Mean Corpuscular Hemoglobin Concent 31L, Red Cell Distribution Width 14.2, Platelet Count 157, Mean Platelet Volume 10.8H, Neutrophils (%) (Auto) 81H, Lymphocytes (%) (Auto) 8L, Monocytes (%) (Auto) 10, Eosinophils (%) (Auto) 1, Basophils (%) (Auto) 0, Neutrophils # (Auto) 9.3H, Lymphocytes # (Auto) 0.9L, Monocytes # (Auto) 1.1H, Eosinophils # (Auto) 0.1, Basophils # (Auto) 0.0, Sodium Level 140, Potassium Level 4.0, Chloride Level 104, Carbon Dioxide Level 30, Anion Gap 6, Blood Urea Nitrogen 19H, Creatinine 0.61, Estimat Glomerular Filtration Rate > 60, BUN/ Creatinine Ratio 31, Glucose Level 117H, Calcium Level 8.1L, Phosphorus Level 2.7, Magnesium Level 1.7L, Total Bilirubin 0.4, Aspartate Amino Transf (AST/SGOT ) 28, Alanine Aminotransferase (ALT/SGPT) 12, Alkaline Phosphatase 41, Total Protein 5.2L, Albumin 2.8L 03/08/17 06:35: Blood Gas Puncture Site R RAD, Blood Gas Patient Temperature 98.7, Arterial Blood pH 7.35L, Arterial Blood Partial Pressure CO2 58H, Arterial Blood Partial Pressure O2 89, Arterial Blood HCO3 31H, Arterial Blood Total CO2 32.8H, Arterial Blood Oxygen Saturation 97, Arterial Blood Base Excess 5.7H, Tirso Test YES-POS, Blood Gas Ventilator Setting YES, Blood Gas Inspired Oxygen 30% 03/08/17 08:17: Glucometer 133H Microbiology 03/06/17 Blood Culture - Preliminary, Resulted Staph, Coag Neg (Temperature Logging Operator) 03/06/17 MRSA Screen - Final, Complete MRSA not isolated Assessment/Plan Assessment/Plan Plan ACUTE ON CHRONIC RESPIRATORY FAILURE SEVERE COPD EXACERBATION ADM: Patient now intubated with improvement in blood gases. Will continue MV for another 24 hours, then try weaning parameters tomorrow morning with plans to extubate if he passes. Have him on Zithromax and LEvaquin, steroids at present. Patient already showing improvement, was able to communicate slightly with me but not to really answer questions. 03/07 - Patient growing GNR from sputum culture - will add zosyn for double coverage. continue the other two abx for now until we have speciation/ sensitivities. was also called with positive blood cultures, but these appear to be CONS; at this point, I do not think it is necessary to treat specifically or add vanc. He does not appear septic without fever or elevated WBC. 03/08 - DC Zmax, Zosyn as Pseudomonas garland sensitive. Leave Levaquin. Restart Steroids as they had not been continued as I had thought. Will do solumedrol 125mg q6h x 24-48h, then back down. Could be reason for poor ventilation weaning to date. CXR shows no developing pna, good tube placement. both blood cultures showed CONS, so I am not going to treat that as stated above. ACUTE RESPIRATORY ACIDOSIS ADM: Improving with mechanical ventilation. 03/07: Believe that his sedation is a bit too aggressive, will change to Precedex so taht he can be more alert and we can try weaning vent again in the morning. 03/08 - plan to consult Dr Agustin in the AM for assistance with ventilator support and weaning. COntinue Precedex for now. PT overbreathing the vent today. LACTIC ACIDOSIS DECREASED URINE OUTPUT HYPOKALEMIA 03/07 - concerning that he is riding the vent, not urinating despite adequate MAP. have bolused several times, now on fluids. will monitor close I/O. check BMP at 4:00 to make sure creatinine not bumping. replace with KPhos as the KCl has now shown adequate rise in K. 03/08 - nicely improved HYPERGLYCEMIA ADM: No h/o DMT2, likely steroid related 03/07 - Improved, on SSI ICU protocol 03/08 - no changes GI Proph: Protonix DVT Proph: SCDs. will add lovenox today since he is very ill and likely to be bedridden for a considerable amount of time. Diagnosis/Problems: Clinical Quality Measures DVT/VTE Risk/Contraindication: Risk Factor Score Per Nursin RFS Level Per Nursing on Admit: 4+=Very High DANITA FLOWERS MD March 08, 2017 10:13
[2017-03-08] MEDS: CHLORHEXIDINE 0.12% SOLN 15 ML (PERIDEX) UDC PO SCH ×2 (10:51→21:25)
--- NOTE | 2017-03-08 13:07 | Diagnostic Imaging Report ---
INDICATION: Respiratory failure. Frontal chest obtained at 0542 hours and compared with yesterday. ET tube and NG tube are unchanged. The film was obtained in a somewhat lordotic projection. There are chronic appearing increased markings with hyperinflation compatible with COPD. There is no new infiltrate. Left subclavian central line is unchanged. IMPRESSION: Stable life-support lines compared to yesterday. COPD changes with no new infiltrate. The film was taken in a somewhat lordotic projection. Dictated by: Dictated on workstation # [id number]
[2017-03-08] MEDS: ENOXAPARIN 40 MG/0.4 ML (LOVENOX) SYR SC SCH (13:47)
[2017-03-08] MEDS: methylPREDNISolone 125 MG (Solu-MEDROL) VIAL IVP SCH ×2 (13:47→17:56)
[2017-03-09] VITALS (26 sets, daily range): BP systolic 115–151; BP diastolic 74–102
[2017-03-09] MEDS: methylPREDNISolone 125 MG (Solu-MEDROL) VIAL IVP SCH ×2 (00:13→06:23)
[2017-03-09] MEDS: inSUlin (REGULAR) HUMAN 1 UNIT/0.01 ML (CHARGE PER UNIT) SC SCH ×6 (00:19→20:15)
[2017-03-09] MEDS: RT-ALBUTEROL/IPRATROPIUM 3 ML (DUONEB) VIAL INH SCH ×6 (03:18→21:52)
[2017-03-09 04:12] LABS: BASOPHILS % (AUTO) 0 % (0-10); EOSINOPHILS % (AUTO) 0 % (0-10); LYMPHOCYTES # (AUTO) 0.2 X 10^3 (1.0-4.0); LYMPHOCYTES % (AUTO) 3 % (12-44); MEAN CORPUSCULAR HEMOGLOBIN 29 PG (25-34); MEAN CORPUSCULAR HGB CONC 31 G/DL (32-36); MEAN CORPUSCULAR VOLUME 92 FL (80-99); MEAN PLATELET VOLUME 10.8 FL (7.4-10.4); MONOCYTES # (AUTO) 0.2 X 10^3 (0.0-1.0); MONOCYTES % (AUTO) 3 % (0-12); NEUTROPHILS # (AUTO) 6.8 X 10^3 (1.8-7.8); NEUTROPHILS % (AUTO) 95 % (42-75); PLATELET COUNT 157 10^3/uL (130-400); RED BLOOD COUNT 3.95 10^6/uL (4.35-5.85); RED CELL DISTRIBUTION WIDTH 13.8 % (10.0-14.5); WHITE BLOOD COUNT 7.2 10^3/uL (4.3-11.0)
[2017-03-09 04:34] LABS: ALANINE AMINOTRANSFERASE 12 U/L (0-55); ALBUMIN 2.9 G/DL (3.2-4.5); ANION GAP 7 MMOL/L (5-14); ASPARTATE AMINO TRANSFERASE 21 U/L (5-34); BILIRUBIN,TOTAL 0.4 MG/DL (0.1-1.0); BLOOD UREA NITROGEN 14 MG/DL (7-18); BUN/CREATININE RATIO 24; CALCIUM 8.5 MG/DL (8.5-10.1); CARBON DIOXIDE 28 MMOL/L (21-32); CHLORIDE 101 MMOL/L (98-107); CREATININE SERUM 0.59 MG/DL (0.60-1.30); GFR ESTIMATED > 60; GLUCOSE 175 MG/DL (70-105); PHOSPHORUS 2.5 MG/DL (2.3-4.7); POTASSIUM 4.4 MMOL/L (3.6-5.0); SODIUM 136 MMOL/L (135-145); TOTAL PROTEIN 5.7 G/DL (6.4-8.2)
[2017-03-09] MEDS ORDERED: NS (IVPB) 100 ML ONE (04:39)
[2017-03-09] MEDS ORDERED: DEXMEDETOMIDINE 200 MCG/2 ML (PRECEDEX) VIAL IV ONE (05:01)
[2017-03-09 05:09] LABS: ABG BASE EXCESS 4.6 MMOL/L (-2.5-2.5); ABG HCO3 30 MMOL/L (23-27); ABG OXYGEN SATURATION 95 % (94-100); ABG PCO2 49 MMHG (35-45); ABG PH 7.39 (7.37-7.43); ABG PO2 68 MMHG (79-93)
[2017-03-09 05:12] LABS: ALLENS TEST YES-POS; PATIENT TEMP 96.7
[2017-03-09] MEDS: DEXMEDETOMIDINE INJECTION 400 MCG in NS (IVPB) 100 ML IV SCH (05:13)
[2017-03-09] MEDS: POTASSIUM CL 10MEQ/50ML IVPB 50 ML IV SCH (06:00)
[2017-03-09] MEDS: KCL 20 MEQ TAB (K-DUR) PO SCH (06:00)
[2017-03-09] MEDS: MAGNESIUM 1 GM/100 ML IVPB 100 ML IV SCH (06:00)
--- NOTE | 2017-03-09 06:34 | Pulmonary Consultation ---
History of Present Illness History of Present Illness Date of Consultation 03/09/17 06:29 Date of Admission History of Present Illness 61yo with hx of COPD presented to ED 03/06/17 secondary to worsening SOB via EMS. Pt was in acute respiratory failure upon ED admission. BiPAP was ordered and pt admitted to ICU. He was then intubated while ICU secondary to worsening respiratory failure and not improving on BiPAP. Unable to obtain ROS secondary to pt being on vent. I am being consulted for pulmonary/CC management. Allergies and Home Medications Allergies Coded Allergies: No Known Drug Allergies (Unverified , 10/02/09) Home Medications Albuterol 8.5 Gm Hfa.aer.ad, 1 PUFF IH Q4H PRN for WHEEZING, #1 Ref 1 1 PUFFS Prescribed by: SAROJ SHAFER on 01/29/15 1145 Fluticasone/Salmeterol 1 Puff Puff, 2 PUFF IH BID@08,20, #1 Ref 1 Prescribed by: SAROJ SHAFER on 01/29/15 1145 Fluticasone/Vilanterol 1 Each Blst.w.dev, #60 (Reported) Montelukast Sodium 10 Mg Tablet, #30 (Reported) [Tiotropium Morrow] 1 INH AERP, 0 INH IH DAILY@0800 for 30 Days, Ref 1 Prescribed by: SAROJ SHAFER on 01/29/15 1145 Past Tspnygk-Qctrmq-Fgtthx Hx Patient Social History Alcohol Use: Occasionally Uses Recreational Drug Use: No Smoking Status: Current Everyday Smoker Type Used: Cigarettes Recent Foreign Travel: No Contact w/Someone Who Travel: No Recent Infectious Disease Expo: No Recent Hopitalizations: Yes Physical Abuse Screen: No Sexual Abuse: No Immunizations Up To Date Tetanus Booster (TDap): Unknown Seasonal Allergies Seasonal Allergies: No Surgeries HX Surgeries: Yes (HERNIA,LIVER LAC.,LEFT LEG PIN,JAW SURG.) Surgeries: Abdominal, Orthopedic Respiratory Hx Respiratory Disorders: Yes (tobacco is about) Respiratory Disorders: Asthma, Pneumonia, COPD Cardiovascular Hx Cardiac Disorders: Yes (diastolic heart failure with normal ejection fraction) Cardiac Disorders: High Cholesterol, Hypertension, Valvular Heart Disease Neurological Hx Neurological Disorders: No Reproductive System Hx Reproductive Disorders: No Genitourinary Hx Genitourinary Disorders: No Gastrointestinal Hx Gastrointestinal Disorders: No Musculoskeletal Hx Musculoskeletal Disorders: Yes Musculoskeletal Disorders: Degenerate Disk Disease Endocrine Hx Endocrine Disorders: No HEENT HX ENT Disorders: No Cancer Hx Cancer: No Psychosocial Hx Psychiatric Problems: Yes (history of alcohol dependence) Integumentary HX Skin/Integumentary Disorder: No Blood Transfusions Hx Blood Disorders: No Family Medical History Significant Family History: No Pertinent Family Hx Family Medial History: Completed stroke 19 MOTHER FH: brain tumor 19 FATHER FH: brain tumor 19 FATHER No Family History of: AIDS Exam Exam Vital Signs Date Time Temp Pulse Resp B/P (MAP) Pulse Ox O2 Delivery O2 Flow Rate FiO2 03/09/17 06:00 70 20 120/82 99 30.00 03/09/17 05:00 73 22 120/76 97 30.00 03/09/17 05:00 74 28 96 03/09/17 04:45 75 22 96 50 03/09/17 04:00 96.7 67 22 124/82 96 30.00 03/09/17 04:00 30 03/09/17 03:18 62 20 97 50 03/09/17 03:00 64 19 129/85 96 30.00 03/09/17 02:00 66 20 125/80 96 30.00 03/09/17 01:00 70 03/09/17 01:00 70 20 121/83 95 30.00 03/09/17 00:22 63 19 96 50 03/09/17 00:00 30 03/09/17 00:00 97.3 71 20 127/80 96 30.00 03/08/17 23:00 71 20 127/81 97 30.00 03/08/17 22:36 69 20 98 50 03/08/17 22:00 71 18 131/80 97 30.00 03/08/17 21:00 73 19 129/83 96 30.00 03/08/17 20:40 74 19 96 50 03/08/17 20:00 30 03/08/17 20:00 99.1 78 19 115/73 97 30.00 03/08/17 19:00 82 23 96 50 03/08/17 19:00 75 03/08/17 19:00 75 18 120/82 97 30.00 03/08/17 18:00 78 20 109/71 94 30.00 03/08/17 17:00 84 22 104/74 96 30.00 03/08/17 16:00 99.6 30.00 03/08/17 16:00 82 23 96 50 03/08/17 16:00 84 22 110/71 96 30.00 03/08/17 16:00 30 03/08/17 15:00 90 21 122/75 97 30.00 03/08/17 14:37 87 22 89 21 03/08/17 14:37 30.00 03/08/17 14:00 95 27 130/88 92 21.00 03/08/17 13:00 75 18 94/68 96 21.00 03/08/17 13:00 73 03/08/17 12:38 76 19 96 21 03/08/17 12:00 98.9 21.00 03/08/17 12:00 79 20 103/67 95 21.00 03/08/17 12:00 21 03/08/17 11:00 83 19 107/71 94 21.00 03/08/17 10:15 21.00 03/08/17 10:07 66 18 100 30 03/08/17 10:00 68 17 86/67 100 30.00 03/08/17 09:00 71 17 82/69 97 30.00 03/08/17 08:15 73 18 99 30 03/08/17 08:00 97.7 30.00 03/08/17 08:00 30 03/08/17 08:00 73 18 116/76 96 30.00 03/08/17 07:00 79 03/08/17 07:00 79 18 108/71 97 30.00 03/08/17 06:45 89 31 178/94 83 30.00 03/08/17 06:31 64 18 100 30 03/08/17 06:30 75 18 104/70 98 30.00 I & O 03/09/17 07:00 Intake Total 1777 ml Output Total 1130 ml Balance 647 ml General Appearance: No Apparent Distress, WD/WN HEENT: PERRL/EOMI Respiratory: No Accessory Muscle Use, No Respiratory Distress, Decreased Breath Sounds Cardiovascular: Regular Rate, Rhythm, No Edema Capillary Refill: Less Than 3 Seconds Gastrointestinal: normal bowel sounds, non tender, soft, no organomegaly, no pulsatile mass Extremity: No Calf Tenderness, No Pedal Edema Neurologic/Psychiatric: Alert Skin: Normal Color, Warm/Dry Results Lab Laboratory Tests 03/07/17 16:00 03/08/17 04:10 03/09/17 03:55 Assessment/Plan Assessment/Plan Acute on chronic respiratory failure- Pt is improving -Pt has been on vent since 03/06 -Will attempt extubation today -currently on precedex -Pt will benefit from home vent to mask -he is at risk of frequent admissions and even sudden from respiratory failure Acute COPDAE -solumedrol - decrease to 40 IV Q 6 -DuoNeb Q 4 Pneumonia with pseudomonas -Agree with Levaquin x 14 days total 255 Clinical Quality Measures DVT/VTE Risk/Contraindication: Risk Factor Score Per Nursin RFS Level Per Nursing on Admit: 4+=Very High ARELI SHERIDAN DO March 09, 2017 06:34
--- NOTE | 2017-03-09 06:57 | Diagnostic Imaging Report ---
INDICATION: Respiratory failure Portable chest 5:25 AM There is an ET tube projecting over the trachea. NG tube tip projects over the mid chest. Left subclavian central line projects over the SVC. Heart size and pulmonary vascularity are normal. Lungs are clear. There are no effusions or pneumothoraces. IMPRESSION: NG tube projects over the mid chest and should be advanced 23 cm to be better positioned in the stomach. Dictated by: Dictated on workstation # [id number]
[2017-03-09 07:18] LABS: ABG BASE EXCESS 5.3 MMOL/L (-2.5-2.5); ABG HCO3 30 MMOL/L (23-27); ABG OXYGEN SATURATION 98 % (94-100); ABG PCO2 47 MMHG (35-45); ABG PH 7.42 (7.37-7.43); ABG PO2 84 MMHG (79-93); ABG TCO2 31.3 MMOL/L (21.0-31.0)
[2017-03-09 07:19] LABS: ALLENS TEST YES-POS; PATIENT TEMP 97.5
[2017-03-09] MEDS: PANTOPRAZOLE 40 MG/10 ML (PROTONIX) VIAL IV SCH ×2 (08:08→20:54)
[2017-03-09] MEDS: D5 1/2 NS W/KCL 20 MEQ/L 1,000 ML IV SCH ×2 (08:08→17:36)
[2017-03-09] MEDS: LEVOFLOXACIN 750 MG/150 ML IV 150 ML IV SCH (08:10)
--- NOTE | 2017-03-09 09:03 | ECHOCARDIOGRAPHY REPORT ---
DATE OF SERVICE: 03/07/2017 ATTENDING PHYSICIAN: Dr. Any Woodward. ORDERING PHYSICIAN: Dr. Guillen. PRIMARY PHYSICIAN: Dr. Natasha Goins. DIAGNOSIS: Acute on chronic respiratory failure. FINDINGS: 1. Sinus rhythm. 2. Left atrial dimensions are normal. 3. Aortic root dimensions are normal. 4. Left ventricular systolic function is hyperdynamic. Left ventricular ejection fraction is 75%. Mild concentric LVH is present with diastolic interventricular septal diameter 1.1 cm. 5. There are no wall motion abnormalities. 6. Right heart size and function is normal. 7. There is no evidence of pericardial effusion. 8. Mild diastolic dysfunction is present. 9. IVC is small with a diameter of less than 1.5 cm. VALVULAR STRUCTURE OF THE HEART: There is mild aortic sclerosis with no significant stenosis or regurgitation. There is mild tricuspid regurgitation with RVSP of 25 mmHg. There is no significant mitral valve or pulmonic valve pathology. CONCLUSION: 1. Hyperdynamic left ventricle with an ejection fraction of 75%. This may suggest under filling due to dehydration. 2. Left ventricular ejection fraction is 75%. 3. Mild diastolic dysfunction. 4. Mild concentric left ventricular hypertrophy. 5. No significant valvular heart disease. Job ID: [id number] DocumentID: [id number] Dictated Date: 03/08/2017 14:19:11 Data Center Manager Date: 03/08/2017 14:34:54 Dictated By: ASHLEY GUILLEN MD
[2017-03-09] MEDS: CHLORHEXIDINE 0.12% SOLN 15 ML (PERIDEX) UDC PO SCH ×2 (09:08→20:54)
[2017-03-09] MEDS ORDERED: CETI10TA20 PO (09:17)
[2017-03-09] MEDS ORDERED: IPRA0.2S51 NEB (09:17)
--- NOTE | 2017-03-09 09:57 | Progress Note-Hospitalist ---
Progress Note Progress Notes/Assess & Plan Date Seen 03/09/17 Diagonsis/Assessment & Plan Patient doing well and extubated uneventfully this morning Very diminished breath sounds indicating severe COPD so prognosis long-term is very guarded About ready to order breakfast Denies any pain Reviewed meds No fever, vital signs stable, pleasant, thin, chronically ill, appearing older than stated age of 61 Regular rate and rhythm, diminished breath sounds all gonzalez no rales or wheezing noted No edema Laboratory Tests 03/09/17 03:55 Assessment: ACUTE ON CHRONIC RESPIRATORY FAILURE SEVERE COPD EXACERBATION ADM: Patient now intubated with improvement in blood gases. Will continue MV for another 24 hours, then try weaning parameters tomorrow morning with plans to extubate if he passes. Have him on Zithromax and LEvaquin, steroids at present. Patient already showing improvement, was able to communicate slightly with me but not to really answer questions. 03/07 - Patient growing GNR from sputum culture - will add zosyn for double coverage. continue the other two abx for now until we have speciation/ sensitivities. was also called with positive blood cultures, but these appear to be CONS; at this point, I do not think it is necessary to treat specifically or add vanc. He does not appear septic without fever or elevated WBC. 03/08 - DC Zmax, Zosyn as Pseudomonas garland sensitive. Leave Levaquin. Restart Steroids as they had not been continued as I had thought. Will do solumedrol 125mg q6h x 24-48h, then back down. Could be reason for poor ventilation weaning to date. CXR shows no developing pna, good tube placement. both blood cultures showed CONS, so I am not going to treat that as stated above. 03/09 - Extubated uneventfully. Pt about ready to order bfast. Appreciate Dr Agustin. Maintain on FQ single agent along with lower dose of Solu-medrol ACUTE RESPIRATORY ACIDOSIS ADM: Improving with mechanical ventilation. 03/07: Believe that his sedation is a bit too aggressive, will change to Precedex so taht he can be more alert and we can try weaning vent again in the morning. 03/08 - plan to consult Dr Agustin in the AM for assistance with ventilator support and weaning. Continue Precedex for now. PT overbreathing the vent today. 03/09 - Extubated LACTIC ACIDOSIS DECREASED URINE OUTPUT HYPOKALEMIA 03/07 - concerning that he is riding the vent, not urinating despite adequate MAP. have bolused several times, now on fluids. will monitor close I/O. check BMP at 4:00 to make sure creatinine not bumping. replace with KPhos as the KCl has now shown adequate rise in K. 03/08 - nicely improved HYPERGLYCEMIA ADM: No h/o DMT2, likely steroid related 03/07 - Improved, on SSI ICU protocol 03/08 - no changes GI Proph: Protonix DVT Proph: SCDs. will add Lovenox today since he is very ill and likely to be bedridden for a considerable amount of time. SHERRILL TAVARES DO March 09, 2017 09:57
[2017-03-09] MEDS: ENOXAPARIN 40 MG/0.4 ML (LOVENOX) SYR SC SCH (12:10)
[2017-03-09] MEDS: methylPREDNISolone 40 MG/ML (Solu-MEDROL) VIAL IJ SCH ×3 (12:10→23:33)
[2017-03-10] VITALS (13 sets, daily range): BP systolic 131–167; BP diastolic 75–103
[2017-03-10] MEDS: inSUlin (REGULAR) HUMAN 1 UNIT/0.01 ML (CHARGE PER UNIT) SC SCH ×4 (00:15→11:01)
[2017-03-10] MEDS: RT-ALBUTEROL/IPRATROPIUM 3 ML (DUONEB) VIAL INH SCH ×6 (01:11→21:57)
[2017-03-10] MEDS: D5 1/2 NS W/KCL 20 MEQ/L 1,000 ML IV SCH ×3 (04:07→17:16)
[2017-03-10 05:04] LABS: BASOPHILS % (AUTO) 0 % (0-10); EOSINOPHILS % (AUTO) 0 % (0-10); LYMPHOCYTES # (AUTO) 0.2 X 10^3 (1.0-4.0); LYMPHOCYTES % (AUTO) 2 % (12-44); MEAN CORPUSCULAR HEMOGLOBIN 29 PG (25-34); MEAN CORPUSCULAR HGB CONC 32 G/DL (32-36); MEAN CORPUSCULAR VOLUME 93 FL (80-99); MEAN PLATELET VOLUME 11.2 FL (7.4-10.4); MONOCYTES # (AUTO) 0.8 X 10^3 (0.0-1.0); MONOCYTES % (AUTO) 6 % (0-12); NEUTROPHILS # (AUTO) 10.9 X 10^3 (1.8-7.8); NEUTROPHILS % (AUTO) 92 % (42-75); PLATELET COUNT 183 10^3/uL (130-400); RED BLOOD COUNT 3.68 10^6/uL (4.35-5.85); RED CELL DISTRIBUTION WIDTH 14.1 % (10.0-14.5); WHITE BLOOD COUNT 11.8 10^3/uL (4.3-11.0)
[2017-03-10 05:27] LABS: ALANINE AMINOTRANSFERASE 15 U/L (0-55); ALBUMIN 2.9 G/DL (3.2-4.5); ANION GAP 7 MMOL/L (5-14); ASPARTATE AMINO TRANSFERASE 23 U/L (5-34); BILIRUBIN,TOTAL 0.2 MG/DL (0.1-1.0); BLOOD UREA NITROGEN 25 MG/DL (7-18); BUN/CREATININE RATIO 38; CALCIUM 8.5 MG/DL (8.5-10.1); CARBON DIOXIDE 28 MMOL/L (21-32); CHLORIDE 107 MMOL/L (98-107); CREATININE SERUM 0.65 MG/DL (0.60-1.30); GFR ESTIMATED > 60; GLUCOSE 116 MG/DL (70-105); MAGNESIUM 1.9 MG/DL (1.8-2.4); POTASSIUM 4.4 MMOL/L (3.6-5.0); SODIUM 142 MMOL/L (135-145); TOTAL PROTEIN 5.7 G/DL (6.4-8.2)
[2017-03-10] MEDS: POTASSIUM CL 10MEQ/50ML IVPB 50 ML IV SCH (05:31)
[2017-03-10] MEDS: KCL 20 MEQ TAB (K-DUR) PO SCH (05:32)
[2017-03-10] MEDS: MAGNESIUM 1 GM/100 ML IVPB 100 ML IV SCH (05:32)
[2017-03-10] MEDS: methylPREDNISolone 40 MG/ML (Solu-MEDROL) VIAL IJ SCH (06:30)
--- NOTE | 2017-03-10 06:58 | Pulmonary Progress Note ---
Subjective Subjective/Events-last exam PT is doing very well off ventilator Exam Exam Vital Signs Date Time Temp Pulse Resp B/P (MAP) Pulse Ox O2 Delivery O2 Flow Rate FiO2 03/10/17 06:16 105 20 162/96 99 35.00 03/10/17 05:26 112 29 155/103 96 35.00 03/10/17 04:00 35 03/10/17 04:00 92 27 131/81 100 35.00 03/10/17 03:50 97 30 100 35.00 03/10/17 03:00 117 27 137/86 95 35.00 03/10/17 02:00 116 36 131/81 100 35.00 03/10/17 01:12 104 32 97 35.00 03/10/17 01:00 101 30 133/86 99 35.00 03/10/17 01:00 103 03/10/17 00:00 35 03/10/17 00:00 105 30 133/81 100 4.00 03/09/17 23:38 98.2 100 4.00 03/09/17 23:00 112 29 138/86 100 35.00 03/09/17 22:00 95 31 130/78 100 35.00 03/09/17 21:52 92 29 100 35.00 03/09/17 21:00 97 29 120/77 99 35.00 03/09/17 20:00 35 03/09/17 20:00 108 20 121/79 99 35.00 03/09/17 19:58 99.2 107 28 115/83 99 35.00 03/09/17 19:45 104 03/09/17 19:00 118 29 115/83 100 35.00 03/09/17 18:37 99 4.00 03/09/17 18:00 111 32 121/74 100 03/09/17 17:00 123 132/82 99 03/09/17 16:20 4.00 03/09/17 16:00 124 23 142/89 100 03/09/17 15:49 99.5 03/09/17 15:00 131 21 143/84 97 03/09/17 14:40 138 34 100 35.00 03/09/17 14:00 130 41 146/87 100 03/09/17 13:00 111 03/09/17 13:00 114 45 147/86 100 03/09/17 12:57 99.6 03/09/17 12:10 4.00 03/09/17 10:57 93 4.00 03/09/17 10:00 96 30 95 03/09/17 09:20 78 20 151/102 30.00 03/09/17 08:31 98.5 03/09/17 07:30 100 4.00 03/09/17 07:30 4.00 03/09/17 07:00 67 20 135/79 99 30.00 03/09/17 07:00 74 I & O 03/10/17 07:00 Intake Total 1944.8 ml Output Total 2000 ml Balance -55.2 ml General Appearance: No Apparent Distress, WD/WN HEENT: PERRL/EOMI Respiratory: No Accessory Muscle Use, No Respiratory Distress, Decreased Breath Sounds Cardiovascular: Regular Rate, Rhythm, No Edema Capillary Refill: Less Than 3 Seconds Gastrointestinal: normal bowel sounds, non tender, soft, no organomegaly, no pulsatile mass Extremity: No Calf Tenderness, No Pedal Edema Neurologic/Psychiatric: Alert Skin: Normal Color, Warm/Dry Results Lab Laboratory Tests 03/09/17 03:55 03/10/17 04:30 Assessment/Plan Assessment/Plan Acute on chronic respiratory failure- Pt is improving -pt is doing well off ventilator -Pt will benefit from home vent to mask -he is at risk of frequent admissions and even sudden from respiratory failure Acute COPDAE -solumedrol -change to prednisone taper -DuoNeb Q 4 Pneumonia with pseudomonas -Agree with Levaquin x 14 days total deconditioning/debility - Will hep lock IVF. Increase activity. consult PT/OT D/C regalado and central line. transfer to 4th floor 233 Clinical Quality Measures DVT/VTE Risk/Contraindication: Risk Factor Score Per Nursin RFS Level Per Nursing on Admit: 4+=Very High ARELI SHERIDAN DO March 10, 2017 06:58
--- NOTE | 2017-03-10 08:11 | Progress Note-Hospitalist ---
Progress Note Progress Notes/Assess & Plan Date Seen 03/10/17 Diagonsis/Assessment & Plan Patient doing very well and extubated yesterday uneventfully Very diminished breath sounds indicating severe COPD so prognosis long-term is very guarded Watching movie on laptop Denies any pain Reviewed meds Moving to floor today No fever, vital signs stable, pleasant, thin, chronically ill, appearing older than stated age of 61 Regular rate and rhythm, diminished breath sounds all gonzalez no rales or wheezing noted No edema Laboratory Tests 03/10/17 04:30 Assessment: ACUTE ON CHRONIC RESPIRATORY FAILURE SEVERE COPD EXACERBATION ADM: Patient now intubated with improvement in blood gases. Will continue MV for another 24 hours, then try weaning parameters tomorrow morning with plans to extubate if he passes. Have him on Zithromax and LEvaquin, steroids at present. Patient already showing improvement, was able to communicate slightly with me but not to really answer questions. 03/07 - Patient growing GNR from sputum culture - will add zosyn for double coverage. continue the other two abx for now until we have speciation/ sensitivities. was also called with positive blood cultures, but these appear to be CONS; at this point, I do not think it is necessary to treat specifically or add vanc. He does not appear septic without fever or elevated WBC. 03/08 - DC Zmax, Zosyn as Pseudomonas garlnad sensitive. Leave Levaquin. Restart Steroids as they had not been continued as I had thought. Will do solumedrol 125mg q6h x 24-48h, then back down. Could be reason for poor ventilation weaning to date. CXR shows no developing pna, good tube placement. both blood cultures showed CONS, so I am not going to treat that as stated above. 03/09 - Extubated uneventfully. Pt about ready to order bfast. Appreciate Dr Agustin. Maintain on FQ single agent along with lower dose of Solu-medrol 03/10/17: doing well and moving to floor, already has CPAP and O2 at home ACUTE RESPIRATORY ACIDOSIS ADM: Improving with mechanical ventilation. 03/07: Believe that his sedation is a bit too aggressive, will change to Precedex so taht he can be more alert and we can try weaning vent again in the morning. 03/08 - plan to consult Dr Agustin in the AM for assistance with ventilator support and weaning. Continue Precedex for now. PT overbreathing the vent today. 03/09 - Extubated LACTIC ACIDOSIS DECREASED URINE OUTPUT HYPOKALEMIA 03/07 - concerning that he is riding the vent, not urinating despite adequate MAP. have bolused several times, now on fluids. will monitor close I/O. check BMP at 4:00 to make sure creatinine not bumping. replace with KPhos as the KCl has now shown adequate rise in K. 03/08 - nicely improved HYPERGLYCEMIA ADM: No h/o DMT2, likely steroid related 03/07 - Improved, on SSI ICU protocol 03/08 - no changes GI Proph: Protonix DVT Proph: SCDs. will add Lovenox today since he is very ill and likely to be bedridden for a considerable amount of time. Plan: Tx to floor Prognosis guarded O2 at home set up already SHERRILL TAVARES DO March 10, 2017 08:11
[2017-03-10] MEDS: PANTOPRAZOLE 40 MG/10 ML (PROTONIX) VIAL IV SCH ×2 (08:22→20:09)
[2017-03-10] MEDS: predniSONE 10 MG TAB PO SCH (08:22)
[2017-03-10] MEDS: LEVOFLOXACIN 750 MG/150 ML IV 150 ML IV SCH (08:22)
--- NOTE | 2017-03-10 09:19 | Diagnostic Imaging Report ---
INDICATION: Shortness of breath. EXAMINATION: Portable chest at 4:55 AM. FINDINGS: The left subclavian central tip projects over the SVC. The heart size and pulmonary vascularity are normal. The lungs are clear. There are no effusions or pneumothoraces. IMPRESSION: Negative chest. Dictated by: Dictated on workstation # [id number]
[2017-03-10] MEDS: RT-ADVAIR HFA 115/21 MCG PER PUFF IH SCH ×2 (10:37→18:34)
--- NOTE | 2017-03-10 11:41 | Physical Therapy Progress Note ---
Therapy Progress Note Chart reviewed and eval attempted but patient would like to wait until this afternoon. Patient just got through with OT and is very SOB and worn out and says he needs to rest for a while. Will attempt again this afternoon. EPI VINCENT PT March 10, 2017 11:41
[2017-03-10] MEDS: ENOXAPARIN 40 MG/0.4 ML (LOVENOX) SYR SC SCH (12:01)
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
[2017-03-11 00:18] VITALS: BP 132/65
[2017-03-11] MEDS: RT-ALBUTEROL/IPRATROPIUM 3 ML (DUONEB) VIAL INH SCH ×6 (02:53→21:55)
[2017-03-11] MEDS: D5 1/2 NS W/KCL 20 MEQ/L 1,000 ML IV SCH ×3 (03:15→23:24)
[2017-03-11 04:09] VITALS: BP 140/69
[2017-03-11 06:15] LABS: BASOPHILS % (AUTO) 0 % (0-10); EOSINOPHILS % (AUTO) 0 % (0-10); LYMPHOCYTES # (AUTO) 0.8 X 10^3 (1.0-4.0); LYMPHOCYTES % (AUTO) 6 % (12-44); MEAN CORPUSCULAR HEMOGLOBIN 29 PG (25-34); MEAN CORPUSCULAR HGB CONC 30 G/DL (32-36); MEAN CORPUSCULAR VOLUME 98 FL (80-99); MEAN PLATELET VOLUME 9.9 FL (7.4-10.4); MONOCYTES # (AUTO) 2.1 X 10^3 (0.0-1.0); MONOCYTES % (AUTO) 15 % (0-12); NEUTROPHILS # (AUTO) 10.8 X 10^3 (1.8-7.8); NEUTROPHILS % (AUTO) 79 % (42-75); PLATELET COUNT 204 10^3/uL (130-400); RED BLOOD COUNT 3.71 10^6/uL (4.35-5.85); RED CELL DISTRIBUTION WIDTH 14.8 % (10.0-14.5); WHITE BLOOD COUNT 13.7 10^3/uL (4.3-11.0)
[2017-03-11 06:37] LABS: ALANINE AMINOTRANSFERASE 23 U/L (0-55); ALBUMIN 3.1 G/DL (3.2-4.5); ANION GAP 6 MMOL/L (5-14); ASPARTATE AMINO TRANSFERASE 26 U/L (5-34); BILIRUBIN,TOTAL 0.1 MG/DL (0.1-1.0); BLOOD UREA NITROGEN 22 MG/DL (7-18); BUN/CREATININE RATIO 34; CALCIUM 8.7 MG/DL (8.5-10.1); CARBON DIOXIDE 33 MMOL/L (21-32); CHLORIDE 106 MMOL/L (98-107); CREATININE SERUM 0.65 MG/DL (0.60-1.30); GFR ESTIMATED > 60; GLUCOSE 116 MG/DL (70-105); POTASSIUM 4.3 MMOL/L (3.6-5.0); SODIUM 145 MMOL/L (135-145); TOTAL PROTEIN 5.9 G/DL (6.4-8.2)
[2017-03-11] MEDS: RT-ADVAIR HFA 115/21 MCG PER PUFF IH SCH ×2 (07:56→18:34)
[2017-03-11 08:00] VITALS: BP 114/71
[2017-03-11] MEDS: PANTOPRAZOLE 40 MG/10 ML (PROTONIX) VIAL IV SCH ×2 (08:58→20:42)
[2017-03-11] MEDS: predniSONE 10 MG TAB PO SCH (08:59)
--- NOTE | 2017-03-11 08:59 | Pulmonary Progress Note ---
Subjective Subjective/Events-last exam NO complications noted pt is doing well. Exam Exam Vital Signs Date Time Temp Pulse Resp B/P (MAP) Pulse Ox O2 Delivery O2 Flow Rate FiO2 03/11/17 08:00 99.0 88 22 114/71 100 3.00 03/11/17 07:56 100 7.00 03/11/17 04:09 97.9 116 24 140/69 99 3.00 03/11/17 02:53 98 7.00 03/11/17 00:18 97.6 110 26 132/65 98 3.00 03/10/17 21:58 98 7.00 03/10/17 20:56 5.00 03/10/17 20:00 99.1 135 28 156/75 99 3.00 03/10/17 18:34 98 4.00 03/10/17 15:31 98.6 128 24 154/78 100 3.00 03/10/17 15:03 98 3.00 03/10/17 12:00 98.2 133 20 154/78 97 3.00 03/10/17 10:43 98 3.00 03/10/17 09:00 99.3 139 20 167/80 96 I & O 03/11/17 07:00 Intake Total 3160 ml Output Total 950 ml Balance 2210 ml General Appearance: No Apparent Distress, WD/WN HEENT: PERRL/EOMI Respiratory: No Accessory Muscle Use, No Respiratory Distress, Decreased Breath Sounds Cardiovascular: Regular Rate, Rhythm, No Edema Capillary Refill: Less Than 3 Seconds Gastrointestinal: normal bowel sounds, non tender, soft, no organomegaly, no pulsatile mass Extremity: No Calf Tenderness, No Pedal Edema Neurologic/Psychiatric: Alert Skin: Normal Color, Warm/Dry Results Lab Laboratory Tests 03/10/17 04:30 03/11/17 06:05 Assessment/Plan Assessment/Plan Acute on chronic respiratory failure- Pt is improving -pt is doing well off ventilator -pt is actually already on vent to mask Acute COPDAE -prednisone taper -DuoNeb Q 4 Pneumonia with pseudomonas -Agree with Levaquin x 14 days total deconditioning/debility - 233 Clinical Quality Measures DVT/VTE Risk/Contraindication: Risk Factor Score Per Nursin RFS Level Per Nursing on Admit: 4+=Very High ARELI SHERIDAN DO Mar 11, 2017 08:59
--- NOTE | 2017-03-11 09:50 | Physical Therapy Daily Note ---
PT Daily Note-Current Subjective Patient reluctant to agree to PT. Pain Numeric Pain Scale: 0-No Pain Location: No Pain Reported Mental Status Patient Orientation: Normal For Age Attachments: Oxygen Transfers Functional Sparks Measure 0=Not Assessed/NA 4=Minimal Assistance 1=Total Assistance 5=Supervision or Setup 2=Maximal Assistance 6=Modified Spar[place] 3=Moderate Assistance 7=Complete IndependenceIRFPAI Quality Coding Scale 6 Independent with activity with or without an assistive device 5 Patient requires set up or clean up by helper. Patient completes activity by themselves 4 Supervision or touching assist (CGA). Evans provide cues , steadying assist 3 The helper provides less than half the effort to complete the activity 2 The helper provides more than half the effort to complete the activity 1 Dependent. The helper does all the effort to complete an activity 7 Patient refused to complete or attempt activity 9 The patient did not perform the activity before the current illness or injury 88 Not attempted due to Medical conditions or safety concerns Transfers (B, C, W/C) (FIM): 7 Scootin Sit to/from Stand: 7 Gait Training Gait (FIM): 1 Distance (FIM): 1=up to 49 ft Distance: 30' Gait Level of Assist: 7 Gait Assistive Device: None step to gait sequence (PLOF per family) Assessment Patient requires time to complete the minimal of tasks due to air hunger. He presents with noted respiratory, pursed lip breathing at rest and on O2. Per family, patient is at his PLOF with breathing and function. PT to dismiss at this time due to no skilled intervention indicated and patient is end stage COPD. PT Longterm Goals Longterm Goals PT Longterm Goals Time Frame: Mar 17, 2017 Transfers (B,C,W/C) (FIM): 6 Gait (FIM): 1 Distance: 30' Gait Level of Assist: 6 Gait Assistive Device: None, FWW PT Plan Treatment/Plan Treatment Plan: Discontinue PT, goals met Treatment Plan: Bed Mobility, Education, Functional Activity Junior, Functional Strength, Gait, Safety, Therapeutic Exercise, Transfers Treatment Duration: Mar 17, 2017 Visits Per Week: 5-6 Minutes/Day (M-F): 15-30 Minutes/Day (Sat/[place]): 15-30 Time/GCodes Time In: 906 Time Out: 921 Total Billed Treatment Time: 15 Total Billed Treatment 1 visit FA 15 min FLORENCE PRESSLEY PT Mar 11, 2017 09:50
--- NOTE | 2017-03-11 10:53 | Progress Note-Hospitalist ---
Progress Note Progress Notes/Assess & Plan Date Seen 03/11/17 Diagonsis/Assessment & Plan Chart Review: RN called me last night, pt had a HR of 130 so I placed him on Metoprolol 25 XL mg BID Pt's HR is now 88 Pt remains on Prednisone Taper and Levaquin CXR negative Patient Interview: Pt has just returned from ambulating down the [place]. Pt is slightly out of breath after ambulating. Pt has been having BM's Physical exam stable. Pt's ex- confirms Norbert Soni as PCP Pt would like to DC soon. Pt states that he feels he may DC on Wednesday Pt's states that their son stays with the pt. Pt's ex- would like for the pt to be on home health AFVSS, ex-partner in room RRR, Diminished BS all gonzalez no significant changes No edema Assessment: ACUTE ON CHRONIC RESPIRATORY FAILURE SEVERE COPD EXACERBATION ADM: Patient now intubated with improvement in blood gases. Will continue MV for another 24 hours, then try weaning parameters tomorrow morning with plans to extubate if he passes. Have him on Zithromax and LEvaquin, steroids at present. Patient already showing improvement, was able to communicate slightly with me but not to really answer questions. 03/07 - Patient growing GNR from sputum culture - will add zosyn for double coverage. continue the other two abx for now until we have speciation/ sensitivities. was also called with positive blood cultures, but these appear to be CONS; at this point, I do not think it is necessary to treat specifically or add vanc. He does not appear septic without fever or elevated WBC. 03/08 - DC Zmax, Zosyn as Pseudomonas garland sensitive. Leave Levaquin. Restart Steroids as they had not been continued as I had thought. Will do solumedrol 125mg q6h x 24-48h, then back down. Could be reason for poor ventilation weaning to date. CXR shows no developing pna, good tube placement. both blood cultures showed CONS, so I am not going to treat that as stated above. 03/09 - Extubated uneventfully. Pt about ready to order bfast. Appreciate Dr Agustin. Maintain on FQ single agent along with lower dose of Solu-medrol 03/10/17: doing well and moving to floor, already has CPAP and O2 at home 03/11/17: DC tomorrow on HH? Poor prognosis overall ACUTE RESPIRATORY ACIDOSIS ADM: Improving with mechanical ventilation. 03/07: Believe that his sedation is a bit too aggressive, will change to Precedex so taht he can be more alert and we can try weaning vent again in the morning. 03/08 - plan to consult Dr Agustin in the AM for assistance with ventilator support and weaning. Continue Precedex for now. PT overbreathing the vent today. 03/09 - Extubated LACTIC ACIDOSIS DECREASED URINE OUTPUT HYPOKALEMIA 03/07 - concerning that he is riding the vent, not urinating despite adequate MAP. have bolused several times, now on fluids. will monitor close I/O. check BMP at 4:00 to make sure creatinine not bumping. replace with KPhos as the KCl has now shown adequate rise in K. 03/08 - nicely improved HYPERGLYCEMIA ADM: No h/o DMT2, likely steroid related 03/07 - Improved, on SSI ICU protocol 03/08 - no changes GI Proph: Protonix DVT Proph: SCDs. will add Lovenox today since he is very ill and likely to be bedridden for a considerable amount of time. Plan: Prognosis guarded O2 at home set up already SW consult Possible DC tomorrow [facility] Scribed by Neela Crawford under the direct supervision of Dr. Tavares. SHERRILL TAVARES DO Mar 11, 2017 10:53
[2017-03-11] MEDS ORDERED: LEVOFLOXACIN 750 MG TAB (LEVAQUIN) PO SCH (11:00)
[2017-03-11 11:20] VITALS: BP 144/80
[2017-03-11] MEDS: ENOXAPARIN 40 MG/0.4 ML (LOVENOX) SYR SC SCH (13:43)
--- NOTE | 2017-03-11 13:46 | Occupational Ther Daily Note ---
OT Current Status-Daily Note Subjective Pt seen in room, up in recliner, watching movie on laptop. Agreeable to OT. Appearance Alert, cooperative Mental Status/Objective Functional [place] Measure 0=Not Assessed/NA 4=Minimal Assistance 1=Total Assistance 5=Supervision or Setup 2=Maximal Assistance 6=Modified [place] 3=Moderate Assistance 7=Complete [place] ADL-Treatment Pt very short of air. O2 set at 7L/min in place, demonstrates pursed lip breathing, able to say only a few words with each breath of air. Pt education on energy saving techniques such as sock aid or scuba diver that keep him from bending forward, taking frequent rest breaks, delegating tasks to others. He was able to identify techniques that he uses at home to follow these principles. Pt provided with written 1 page sheet on energy conservation techniques and catalogue of assistive devices as examples of items that could help save his energy. Pt left up in recliner, O2 in place, all needs met. Education OT Patient Education: Energy conservation, Purpose of tx/functional activities Teaching Recipient: Patient Teaching Methods: Discussion Response to Teaching: Verbalize Understanding OT Short Term Goals Short Term Goals 1=Demonstrate adherence to instructed precautions during ADL tasks. 2=Patient will verbalize/demonstrate understanding of assistive devices/ modifications for ADL. 3=Patient will improve strength/tolerance for activity to enable patient to perform ADL's. OT Saxophone Assembler Goals Correction Goals Time Frame: Mar 24, 2017 Eating (FIM): 6 Grooming(FIM): 6 Upper Body Dressing(FIM): 5 Lower Body Dressing(FIM): 5 Toileting(FIM): 6 Toilet/Commode Transfer(FIM): 6 Additional Goals: 1-Demonstrate ADL Tasks, 2-Verbalize Understanding, 3- ImproveStrength/Junior 1=Demonstrate adherence to instructed precautions during ADL tasks. 2=Patient will verbalize/demonstrate understanding of assistive devices/ modifications for ADL. 3=Patient will improve strength/tolerance for activity to enable patient to perform ADL's. OT Education/Plan Problem List/Assessment Pt admitted secondary to respiratory failure. Pt is quickly fatigued and short of breath with minimal activity. Requires increased time and rest breaks to complete tasks. Pt to benefit from skilled OT intervention for ADL training, transfers, strengthening, and energy conservation education in order to maximize level of function and allow safe discharge plan. Discharge Recommendations Plan/Recommendations: Continue POC Treatment Plan/Plan of Care Patient would benefit from OT for education, treatment and training to promote independence in ADL's, mobility, safety and/or upper extremity function for ADL' s. Plan of Care: ADL Retraining, Functional Mobility, UE Funct Exercise/Act, OTHER (energy conservation education) Treatment Duration: Mar 24, 2017 Visits Per Week: 5 Agreement: Yes Rehab Potential: Poor Time/GCodes Start Time: 13:25 Stop Time: 13:40 Total Time Billed (hr/min): 15 Billed Treatment Time visit, 15 minutes ADL RUSSELL ENG OT Mar 11, 2017 13:45
[2017-03-11 15:45] VITALS: BP 143/79
[2017-03-11 19:43] VITALS: BP 157/82
[2017-03-12] VITALS (27 sets, daily range): BP systolic 68–166; BP diastolic 46–94
[2017-03-12] MEDS: RT-ALBUTEROL/IPRATROPIUM 3 ML (DUONEB) VIAL INH SCH ×6 (02:05→21:51)
[2017-03-12 06:51] LABS: BASOPHILS % (AUTO) 0 % (0-10); EOSINOPHILS % (AUTO) 0 % (0-10); LYMPHOCYTES # (AUTO) 0.5 X 10^3 (1.0-4.0); LYMPHOCYTES % (AUTO) 3 % (12-44); MEAN CORPUSCULAR HEMOGLOBIN 29 PG (25-34); MEAN CORPUSCULAR HGB CONC 29 G/DL (32-36); MEAN CORPUSCULAR VOLUME 101 FL (80-99); MEAN PLATELET VOLUME 10.8 FL (7.4-10.4); MONOCYTES # (AUTO) 2.7 X 10^3 (0.0-1.0); MONOCYTES % (AUTO) 14 % (0-12); NEUTROPHILS # (AUTO) 16.1 X 10^3 (1.8-7.8); NEUTROPHILS % (AUTO) 83 % (42-75); PLATELET COUNT 163 10^3/uL (130-400); RED BLOOD COUNT 3.98 10^6/uL (4.35-5.85); RED CELL DISTRIBUTION WIDTH 14.4 % (10.0-14.5); WHITE BLOOD COUNT 19.2 10^3/uL (4.3-11.0)
[2017-03-12 08:13] LABS: CHLORIDE 100 MMOL/L (98-107); SODIUM 138 MMOL/L (135-145)
[2017-03-12 08:14] LABS: ANION GAP 7 MMOL/L (5-14); BILIRUBIN,TOTAL 0.2 MG/DL (0.1-1.0); BLOOD UREA NITROGEN 19 MG/DL (7-18); BUN/CREATININE RATIO 28; CALCIUM 8.6 MG/DL (8.5-10.1); CARBON DIOXIDE 31 MMOL/L (21-32); CREATININE SERUM 0.67 MG/DL (0.60-1.30); GFR ESTIMATED > 60; GLUCOSE 137 MG/DL (70-105)
[2017-03-12] MEDS ORDERED: proPOfol 200 MG/20 ML (DIPRIVAN) VIAL IV ONE (08:14)
[2017-03-12 08:15] LABS: ALANINE AMINOTRANSFERASE 30 U/L (0-55); ALBUMIN 3.5 G/DL (3.2-4.5)
[2017-03-12 08:27] LABS: TOTAL PROTEIN 6.2 G/DL (6.4-8.2)
[2017-03-12 08:30] LABS: ASPARTATE AMINO TRANSFERASE 28 U/L (5-34)
[2017-03-12 08:32] LABS: POTASSIUM 5.7 MMOL/L (3.6-5.0)
[2017-03-12] MEDS ORDERED: PROPOFOL DRIP (ICU) 100 ML IV ONE (08:35)
[2017-03-12] MEDS: PROPOFOL DRIP (ICU) 100 ML IV SCH ×2 (08:50→11:37)
[2017-03-12] MEDS: NOREPINEPHRINE 4 MG in D5W 250 ML (IVPB) 250 ML IV SCH ×2 (08:50→15:10)
--- NOTE | 2017-03-12 09:01 | Pulmonary Progress Note ---
Subjective Subjective/Events-last exam PT has agonal breathing Exam Exam Vital Signs Date Time Temp Pulse Resp B/P (MAP) Pulse Ox O2 Delivery O2 Flow Rate FiO2 03/12/17 07:56 97.5 96 28 136/74 100 4.50 03/12/17 07:01 97 4.00 03/12/17 07:00 97.6 102 22 138/77 100 4.50 03/12/17 04:00 98.0 103 24 166/92 100 4.50 03/12/17 02:05 99 4.00 03/12/17 00:00 98.0 115 22 154/81 95 4.50 03/11/17 21:55 98 4.00 03/11/17 20:40 4.00 03/11/17 19:43 98.4 135 32 157/82 100 7.00 03/11/17 18:40 4.00 03/11/17 18:34 99 6.00 03/11/17 15:45 98.3 120 35 143/79 100 7.00 03/11/17 15:01 100 7.00 03/11/17 11:20 98.6 112 26 144/80 100 3.00 03/11/17 11:08 98 7.00 I & O 03/12/17 07:00 Intake Total 1830 ml Output Total 800 ml Balance 1030 ml General Appearance: No Apparent Distress, WD/WN HEENT: PERRL/EOMI Respiratory: No Accessory Muscle Use, No Respiratory Distress, Decreased Breath Sounds Cardiovascular: Regular Rate, Rhythm, No Edema Capillary Refill: Less Than 3 Seconds Gastrointestinal: normal bowel sounds, non tender, soft, no organomegaly, no pulsatile mass Extremity: No Calf Tenderness, No Pedal Edema Neurologic/Psychiatric: Alert Skin: Normal Color, Warm/Dry Results Lab Laboratory Tests 03/11/17 06:05 03/12/17 05:27 03/12/17 07:45 Assessment/Plan Assessment/Plan Acute on chronic respiratory failure- Pt is improving -Reintubate patient -ABG in 1hr after intubation -OG tube, regalado -Diprivan gtt -stat CXR -pt has vent to mask at home but was not using it last night Acute COPDAE -prednisone taper change to solumedrol 40 IV Q6 -DuoNeb Q 4 Hyperkalemia - probably secondary to respiratory acidosis -repeat Chem in 2-4 hrs Pneumonia with pseudomonas -Agree with Levaquin x 14 days total deconditioning/debility Called to bedside by RT secondary to acute respiratory failure. PT was not wearing vent to mask last night. I called daughter in regards to code status. Daughter told me that he wants everything done and they do too. Pt was intubated with size 8 ET tube without complication. PT transferred back to ICU. 233 60 min was spent with patient, family and medical staff after intubation. pt status discussed with family along with code status. Currently pt is a full code. They are discussing comfort care vs DNR. NO change in code status at this point. Hospice is consulted. Clinical Quality Measures DVT/VTE Risk/Contraindication: Risk Factor Score Per Nursin RFS Level Per Nursing on Admit: 4+=Very High ARELI SHERIDAN DO Mar 12, 2017 09:01
[2017-03-12] MEDS ORDERED: CATHETER FLUSH 10 ML SYR IV PRN ×2 (09:15→13:45)
[2017-03-12] MEDS ORDERED: NS 100 ML (IVPB) BAG IV ONE ×2 (09:15→13:45)
[2017-03-12] MEDS ORDERED: IOHEXOL 350 MG/ML 100 ML (OMNIPAQUE 350) VIAL IV ONE ×2 (09:15→13:45)
--- NOTE | 2017-03-12 09:22 | Diagnostic Imaging Report ---
INDICATION: Post intubation. FINDINGS: NG catheter goes beneath the diaphragm. ET tube mid thoracic trachea. Air trapping and COPD chronic with no focal infiltrate, failure, effusion or pneumothorax. IMPRESSION: Support apparatus projects in good alignment where visualized, changes of COPD and air trapping chronic with no focal infiltrate or acute pleural abnormality. Dictated by: Dictated on workstation # [id number]
--- NOTE | 2017-03-12 09:31 | Pulmonary Procedures ---
Pulmonary Procedures Date of Procedure Date of Service: Mar 12, 2017 Time of Intubation: 09:31 Intubation Method: orotracheal Medications: Propofol Positive End Tide CO2: Yes Breath Sounds after Intubation: bilateral-equal Intubation Complications: no complications Post Intubation Xray: Yes ARELI SHERIDAN DO Mar 12, 2017 09:31
[2017-03-12] MEDS ORDERED: NS IV 1000 ML 1,000 ML IV ONE (10:11)
[2017-03-12 10:25] LABS: ABG HCO3 36 MMOL/L (23-27); ABG OXYGEN SATURATION 100 % (94-100); ABG PO2 323 MMHG (79-93); ABG TCO2 38.2 MMOL/L (21.0-31.0)
[2017-03-12 10:26] LABS: ALLENS TEST YES-POS; PATIENT TEMP 96.1
[2017-03-12 10:33] LABS: ABG PCO2 74 MMHG (35-45)
[2017-03-12] MEDS ORDERED: LEVOFLOXACIN 750 MG/150 ML IV ONE (10:48)
[2017-03-12] MEDS: D5 1/2 NS W/KCL 20 MEQ/L 1,000 ML IV SCH (10:55)
[2017-03-12] MEDS: methylPREDNISolone 40 MG/ML (Solu-MEDROL) VIAL IV SCH ×3 (10:56→21:22)
[2017-03-12] MEDS: PANTOPRAZOLE 40 MG/10 ML (PROTONIX) VIAL IV SCH ×2 (10:56→21:18)
[2017-03-12] MEDS: LEVOFLOXACIN 750 MG/150 ML IV 150 ML IV SCH ×2 (10:57→16:07)
[2017-03-12] MEDS: NS IV 1000 ML 1,000 ML IV SCH ×2 (11:16→18:13)
[2017-03-12 11:17] LABS: BILIRUBIN,URINE NEGATIVE (NEGATIVE); KETONES,URINE 1+ (NEGATIVE); LEUKOCYTE ESTERASE ,URINE 1+ (NEGATIVE); NITRITE,URINE POSITIVE (NEGATIVE); PH,URINE 6 (5-9); PROTEIN,URINE 3+ (NEGATIVE); UROBILINOGEN,URINE NORMAL (NORMAL)
--- NOTE | 2017-03-12 11:17 | Progress Note-Hospitalist ---
Progress Note Progress Notes/Assess & Plan Date Seen 03/12/17 Diagonsis/Assessment & Plan Dr. Agustin Review: He was re-intubated this morning following extubation several days ago He is likely to become a terminal extubation His BP seems stable enough to possibly transfer to [place] He is still on the ventilator They are likely to go with [facility] but if not I had Demetris with [place] evaluate and may go that direction if family wants that legal secretary: We believe that this will be a terminal extubation on this pt Patient Interview: Pt is still intubated at this time Pts lungs sounded good today Pt was not alert during physical examination today AFVSS, intubated, sedated, thin, chronically ill RRR, Diminished BS all gonzalez no significant changes No edema Assessment: ACUTE ON CHRONIC RESPIRATORY FAILURE SEVERE COPD EXACERBATION ADM: Patient now intubated with improvement in blood gases. Will continue MV for another 24 hours, then try weaning parameters tomorrow morning with plans to extubate if he passes. Have him on Zithromax and LEvaquin, steroids at present. Patient already showing improvement, was able to communicate slightly with me but not to really answer questions. 03/07 - Patient growing GNR from sputum culture - will add zosyn for double coverage. continue the other two abx for now until we have speciation/ sensitivities. was also called with positive blood cultures, but these appear to be CONS; at this point, I do not think it is necessary to treat specifically or add vanc. He does not appear septic without fever or elevated WBC. 03/08 - DC Zmax, Zosyn as Pseudomonas garland sensitive. Leave Levaquin. Restart Steroids as they had not been continued as I had thought. Will do solumedrol 125mg q6h x 24-48h, then back down. Could be reason for poor ventilation weaning to date. CXR shows no developing pna, good tube placement. both blood cultures showed CONS, so I am not going to treat that as stated above. 03/09 - Extubated uneventfully. Pt about ready to order bfast. Appreciate Dr Agustin. Maintain on FQ single agent along with lower dose of Solu-medrol 03/10/17: doing well and moving to floor, already has CPAP and O2 at home 03/11/17: DC tomorrow on HH? Poor prognosis overall 03/12/17: Reintubated due to respiratory failure ACUTE RESPIRATORY ACIDOSIS ADM: Improving with mechanical ventilation. 03/07: Believe that his sedation is a bit too aggressive, will change to Precedex so taht he can be more alert and we can try weaning vent again in the morning. 03/08 - plan to consult Dr Agustin in the AM for assistance with ventilator support and weaning. Continue Precedex for now. PT overbreathing the vent today. 03/09 - Extubated 03/12- reintubated LACTIC ACIDOSIS DECREASED URINE OUTPUT HYPOKALEMIA 03/07 - concerning that he is riding the vent, not urinating despite adequate MAP. have bolused several times, now on fluids. will monitor close I/O. check BMP at 4:00 to make sure creatinine not bumping. replace with KPhos as the KCl has now shown adequate rise in K. 03/08 - nicely improved HYPERGLYCEMIA ADM: No h/o DMT2, likely steroid related 03/07 - Improved, on SSI ICU protocol 03/08 - no changes GI Proph: Protonix DVT Proph: SCDs. will add Lovenox today since he is very ill and likely to be bedridden for a considerable amount of time. Plan: Prognosis guarded SW consult [facility] Possible transfer to [place] if family chooses to not go comfort care path Scribed by Neela Crawford under the direct supervision of Dr. Tavares. SHERRILL TAVARES DO Mar 12, 2017 11:17
[2017-03-12] MEDS: ENOXAPARIN 40 MG/0.4 ML (LOVENOX) SYR SC SCH (11:20)
[2017-03-12 11:21] LABS: BLOOD UREA NITROGEN 19 MG/DL (7-18); BUN/CREATININE RATIO 29; CALCIUM 8.1 MG/DL (8.5-10.1); CREATININE SERUM 0.66 MG/DL (0.60-1.30); GFR ESTIMATED > 60; GLUCOSE 135 MG/DL (70-105)
[2017-03-12 11:31] LABS: OCCULT BLOOD NEGATIVE QC NEGATIVE (NEGATIVE); OCCULT BLOOD POSITIVE QC POSITIVE (POSITIVE); OCCULT BLOOD,GASTRIC FLUID POSITIVE (NEGATIVE)
[2017-03-12 11:32] LABS: WBC,URINE 50-100 /HPF
[2017-03-12 12:21] LABS: CARBON DIOXIDE 26 MMOL/L (21-32); CHLORIDE 102 MMOL/L (98-107)
[2017-03-12 12:22] LABS: ANION GAP 12 MMOL/L (5-14); SODIUM 140 MMOL/L (135-145)
[2017-03-12 12:28] LABS: POTASSIUM 5.7 MMOL/L (3.6-5.0)
--- NOTE | 2017-03-12 12:43 | Physical Therapy Progress Note ---
Therapy Progress Note Date Seen by Provider: Mar 12, 2017 Time Seen by Provider: 12:42 Patient, per physician's report, is not appropriate for skilled therapy at this time due to decline in medical status. PT will continue to monitor patient's status and will address needs as indicated. FLORENCE PRESSLEY PT Mar 12, 2017 12:43
[2017-03-12] MEDS ORDERED: DEXTROSE 50% 50 ML (IMS) SYR IV ONE (13:00)
[2017-03-12] MEDS ORDERED: inSUlin (REGULAR) HUMAN 1 UNIT/0.01 ML (CHARGE PER UNIT) IV ONE (13:00)
[2017-03-12] MEDS ORDERED: SODIUM BICARB 8.4% 50 MEQ/50 ML (ABBOTT) SYR IV ONE (13:00)
--- NOTE | 2017-03-12 13:14 | Occ Therapy Progress Note ---
Therapy Progress Note Date Seen by Provider: Mar 12, 2017 Time Seen by Provider: 13:10 Nursing reported pt too ill to participate in OT eval today. He is on vent and sedated. Will follow for eval when appropriate. RUSSELL ENG OT Mar 12, 2017 13:14
--- NOTE | 2017-03-12 13:54 | Occ Therapy Progress Note ---
Therapy Progress Note Date Seen by Provider: Mar 12, 2017 Time Seen by Provider: 13:54 Due to change of medical status OT will need new orders. JAVI JIMÉNEZ Mar 12, 2017 13:53
[2017-03-12] MEDS ORDERED: NS (IVPB) 50 ML ONE (15:58)
--- NOTE | 2017-03-12 15:59 | Diagnostic Imaging Report ---
PROCEDURE: CT chest, abdomen, and pelvis with contrast. TECHNIQUE: Multiple contiguous axial images were obtained through the chest, abdomen, and pelvis after the administration of intravenous contrast. INDICATION: Possible bowel obstruction. Patient on ventilator. Comparison with 06/08/2016. CT chest: FINDINGS: ET tube is present in good position. Lungs are well aerated. There are small bilateral pleural effusions. There is mild alveolar infiltrate noted posteriorly in the left lower lobe. The lungs are otherwise clear. The aorta and pulmonary arteries are well opacified. Aorta shows mild atherosclerotic disease. No mediastinal or hilar adenopathy of pathologic size. NG tube is present and extends below the diaphragm into the stomach. IMPRESSION: 1. ET tube and NG tube appear in good position. 2. Small bilateral pleural effusions. 3. Mild alveolar infiltrate in left lower lobe consistent with inflammatory process. Aspiration would be of concern. CT abdomen and pelvis: FINDINGS: The liver appears normal. Gallbladder and bile duct are normal. Pancreas is normal. The spleen is normal. The adrenal glands are normal. The kidneys show no evidence of obstruction or calculi. There is benign cortical cyst in the right kidney laterally measuring 2 cm. There is normal enhancement of the abdominal organs and vessels. No evidence of aneurysm. There is very dense atherosclerosis of the iliac arteries with bilateral hemodynamic stenosis. Oral contrast is present in the stomach and small bowel. Stomach is decompressed. Small bowel appears normal. The colon shows normal stool and gas pattern. There are no findings to indicate bowel obstruction. No distended loops of bowel. Yee catheter is present with decompression of the bladder. There is no ascites. No intra-abdominal adenopathy. There is no free air. There is diffuse subcutaneous edema consistent with anasarca. IMPRESSION: 1. No findings of bowel obstruction. No evidence of ascites. 2. There is diffuse subcutaneous edema consistent with anasarca. Dictated by: Dictated on workstation # [id number]
[2017-03-12] MEDS ORDERED: morphine INJ 4 MG/ML 1 ML (VIAL/SYRINGE) IVP PRN (16:00)
[2017-03-12] MEDS: DEXMEDETOMIDINE INJECTION 400 MCG in NS (IVPB) 100 ML IV SCH ×2 (16:06→20:40)
[2017-03-12 17:33] LABS: ALANINE AMINOTRANSFERASE 20 U/L (0-55); ALBUMIN 2.7 G/DL (3.2-4.5); ANION GAP 8 MMOL/L (5-14); ASPARTATE AMINO TRANSFERASE 16 U/L (5-34); BILIRUBIN,TOTAL 0.3 MG/DL (0.1-1.0); BLOOD UREA NITROGEN 18 MG/DL (7-18); BUN/CREATININE RATIO 29; CALCIUM 8.4 MG/DL (8.5-10.1); CARBON DIOXIDE 37 MMOL/L (21-32); CHLORIDE 98 MMOL/L (98-107); CREATININE SERUM 0.63 MG/DL (0.60-1.30); GFR ESTIMATED > 60; GLUCOSE 140 MG/DL (70-105); POTASSIUM 4.4 MMOL/L (3.6-5.0); SODIUM 143 MMOL/L (135-145); TOTAL PROTEIN 4.9 G/DL (6.4-8.2)
[2017-03-13] VITALS (30 sets, daily range): BP systolic 111–157; BP diastolic 58–84
[2017-03-13] MEDS: NS IV 1000 ML 1,000 ML IV SCH ×5 (00:55→22:35)
[2017-03-13] MEDS: RT-ALBUTEROL/IPRATROPIUM 3 ML (DUONEB) VIAL INH SCH ×6 (02:01→20:48)
[2017-03-13] MEDS: methylPREDNISolone 40 MG/ML (Solu-MEDROL) VIAL IV SCH ×4 (03:05→20:09)
[2017-03-13 04:29] LABS: ABG BASE EXCESS 13.1 MMOL/L (-2.5-2.5); ABG HCO3 38 MMOL/L (23-27); ABG OXYGEN SATURATION 99 % (94-100); ABG PCO2 53 MMHG (35-45); ABG PH 7.47 (7.37-7.43); ABG PO2 80 MMHG (79-93); ABG TCO2 39.2 MMOL/L (21.0-31.0); BASOPHILS % (AUTO) 0 % (0-10); EOSINOPHILS % (AUTO) 0 % (0-10); LYMPHOCYTES # (AUTO) 0.3 X 10^3 (1.0-4.0); LYMPHOCYTES % (AUTO) 3 % (12-44); MEAN CORPUSCULAR HEMOGLOBIN 29 PG (25-34); MEAN CORPUSCULAR HGB CONC 30 G/DL (32-36); MEAN CORPUSCULAR VOLUME 97 FL (80-99); MEAN PLATELET VOLUME 10.4 FL (7.4-10.4); MONOCYTES # (AUTO) 1.1 X 10^3 (0.0-1.0); MONOCYTES % (AUTO) 11 % (0-12); NEUTROPHILS # (AUTO) 8.6 X 10^3 (1.8-7.8); NEUTROPHILS % (AUTO) 86 % (42-75); PLATELET COUNT 172 10^3/uL (130-400); RED BLOOD COUNT 3.53 10^6/uL (4.35-5.85); RED CELL DISTRIBUTION WIDTH 13.5 % (10.0-14.5)
[2017-03-13 04:35] LABS: ALLENS TEST YES-POS; PATIENT TEMP 99.6
[2017-03-13 04:54] LABS: ALANINE AMINOTRANSFERASE 19 U/L (0-55); ALBUMIN 2.8 G/DL (3.2-4.5); ANION GAP 10 MMOL/L (5-14); ASPARTATE AMINO TRANSFERASE 16 U/L (5-34); BILIRUBIN,TOTAL 0.5 MG/DL (0.1-1.0); BLOOD UREA NITROGEN 18 MG/DL (7-18); BUN/CREATININE RATIO 30; CALCIUM 8.2 MG/DL (8.5-10.1); CARBON DIOXIDE 32 MMOL/L (21-32); CHLORIDE 100 MMOL/L (98-107); GFR ESTIMATED > 60; GLUCOSE 108 MG/DL (70-105); MAGNESIUM 1.7 MG/DL (1.8-2.4); PHOSPHORUS 1.2 MG/DL (2.3-4.7); POTASSIUM 4.5 MMOL/L (3.6-5.0); SODIUM 142 MMOL/L (135-145); TOTAL PROTEIN 5.1 G/DL (6.4-8.2)
[2017-03-13] MEDS: MAGNESIUM 1 GM/100 ML IVPB 100 ML IV SCH ×3 (05:33→06:33)
[2017-03-13] MEDS: KCL 20 MEQ TAB (K-DUR) PO SCH (06:00)
[2017-03-13] MEDS: POTASSIUM CL 10MEQ/50ML IVPB 50 ML IV SCH (06:00)
[2017-03-13] MEDS: DEXMEDETOMIDINE INJECTION 400 MCG in NS (IVPB) 100 ML IV SCH (07:20)
[2017-03-13] MEDS ORDERED: FUROSEMIDE 40 MG/4 ML INJ (LASIX) IVP ONE (07:45)
--- NOTE | 2017-03-13 07:51 | Pulmonary Progress Note ---
Subjective Subjective/Events-last exam PT is doing better today. He is awake/alert on vent Exam Exam Vital Signs Date Time Temp Pulse Resp B/P (MAP) Pulse Ox O2 Delivery O2 Flow Rate FiO2 03/13/17 06:00 76 19 143/78 94 30.00 03/13/17 05:00 85 19 119/68 100 30.00 03/13/17 04:20 29 03/13/17 04:16 79 20 93 30 03/13/17 04:00 99.6 72 19 146/81 93 30.00 03/13/17 04:00 73 20 93 03/13/17 04:00 94 30 03/13/17 03:00 72 20 157/84 94 30.00 03/13/17 02:02 73 20 94 30 03/13/17 02:00 72 20 152/84 94 30.00 03/13/17 01:00 74 26 146/82 94 30.00 03/13/17 01:00 74 03/13/17 00:02 78 20 94 30 03/13/17 00:00 94 30 03/13/17 00:00 99.1 78 20 138/82 94 30.00 03/12/17 23:00 78 19 128/73 95 30.00 03/12/17 22:00 75 19 95/63 94 30.00 03/12/17 21:52 74 20 96 30 03/12/17 21:00 73 20 146/86 100 30.00 03/12/17 20:20 76 20 100 30 03/12/17 20:00 98.5 75 20 129/85 100 30.00 03/12/17 20:00 100 30 03/12/17 19:00 71 20 149/90 99 30.00 03/12/17 19:00 74 03/12/17 18:33 67 20 99 30 03/12/17 18:00 70 20 91/64 100 30.00 03/12/17 17:00 80 20 85/54 100 30.00 03/12/17 16:09 91 20 100 30 03/12/17 16:00 30 03/12/17 16:00 82 19 106/64 100 30.00 03/12/17 15:00 74 8 81/46 100 30.00 03/12/17 14:00 89 16 78/58 100 30.00 03/12/17 13:27 93 20 100 30 03/12/17 13:00 73 16 103/72 100 60.00 03/12/17 13:00 73 03/12/17 12:00 97.0 83 21 113/72 96 60.00 03/12/17 11:11 71 16 100 60 03/12/17 11:00 71 16 135/82 100 80.00 03/12/17 10:00 64 16 124/81 100 80.00 03/12/17 10:00 65 16 100 80 03/12/17 09:19 68 16 92/83 96 Mechanical Ventilator 80.00 03/12/17 09:00 66 16 96/76 100 80.00 03/12/17 08:50 97.2 86 16 83/67 90 80.00 03/12/17 08:50 80 03/12/17 08:50 83/64 03/12/17 08:45 80 16 100 100 03/12/17 07:56 97.5 96 28 136/74 100 4.50 I & O 03/13/17 07:00 Intake Total 3416 ml Output Total 1750 ml Balance 1666 ml General Appearance: No Apparent Distress, WD/WN HEENT: PERRL/EOMI Respiratory: No Accessory Muscle Use, No Respiratory Distress, Decreased Breath Sounds Cardiovascular: Regular Rate, Rhythm, No Edema Capillary Refill: Less Than 3 Seconds Gastrointestinal: normal bowel sounds, non tender, soft, no organomegaly, no pulsatile mass Extremity: No Calf Tenderness, No Pedal Edema Neurologic/Psychiatric: Alert Skin: Normal Color, Warm/Dry Results Lab Laboratory Tests 03/12/17 05:27 03/12/17 07:45 03/12/17 10:52 03/12/17 17:10 03/13/17 04:17 Assessment/Plan Assessment/Plan Acute on chronic respiratory failure- Pt is improving -Pt is awake and alert while on vent -will start weaning vent today - home vent to mask after extubation -Will give lasix 40mg x 1 Acute COPDAE - solumedrol 40 IV Q6 -DuoNeb Q 4 hypophos, hypomagnesium -replace Pneumonia with pseudomonas -Agree with Levaquin x 14 days total deconditioning/debility -I discussed with Jass from [facility] they are planning on taking patient tomorrow. 233 30min was spent with patient, family and medical staff after intubation. pt status discussed with family along with code status. Currently pt is a full code. They are discussing comfort care vs DNR. NO change in code status at this point. Hospice is consulted. Clinical Quality Measures DVT/VTE Risk/Contraindication: Risk Factor Score Per Nursin RFS Level Per Nursing on Admit: 4+=Very High ARELI SHERIDAN DO Mar 13, 2017 07:51
[2017-03-13 09:46] LABS: ABG BASE EXCESS 14.2 MMOL/L (-2.5-2.5); ABG HCO3 40 MMOL/L (23-27); ABG OXYGEN SATURATION 95 % (94-100); ABG PCO2 65 MMHG (35-45); ABG PH 7.41 (7.37-7.43); ABG PO2 67 MMHG (79-93); ABG TCO2 41.5 MMOL/L (21.0-31.0)
[2017-03-13] MEDS: PANTOPRAZOLE 40 MG/10 ML (PROTONIX) VIAL IV SCH ×2 (09:46→20:09)
[2017-03-13 09:47] LABS: ALLENS TEST YES-POS; PATIENT TEMP 99.8
--- NOTE | 2017-03-13 11:32 | Diagnostic Imaging Report ---
Portable chest. INDICATION: Shortness of breath. Comparison made with prior study from March 12, 2017. FINDINGS: Endotracheal tube positioning is stable. Enteric tube extends to the stomach. Heart size is stable. There are background features of COPD with some patchy atelectasis or infiltrate at the left lung base. IMPRESSION: 1. Background features of COPD with a small degree of patchy atelectasis or infiltrate at the left lung base. Life support apparatus appears stable. Dictated by: Dictated on workstation # [id number]
[2017-03-13] MEDS: NOREPINEPHRINE 4 MG in D5W 250 ML (IVPB) 250 ML IV SCH (11:35)
--- NOTE | 2017-03-13 11:41 | Progress Note-Hospitalist ---
Progress Note Progress Notes/Assess & Plan Date Seen 03/13/17 Date Seen by Provider: Mar 13, 2017 Time Seen by Provider: 11:00 Diagonsis/Assessment & Plan Dr. Agustin Review: He is on wean protocol Demetris with [facility] evaluated pt and will likely accept transfer tomorrow AFVSS, intubated, sedated, thin, chronically ill, alert RRR, Diminished BS all gonzalez no significant changes No edema Assessment: ACUTE ON CHRONIC RESPIRATORY FAILURE SEVERE COPD EXACERBATION ADM: Patient now intubated with improvement in blood gases. Will continue MV for another 24 hours, then try weaning parameters tomorrow morning with plans to extubate if he passes. Have him on Zithromax and LEvaquin, steroids at present. Patient already showing improvement, was able to communicate slightly with me but not to really answer questions. 03/07 - Patient growing GNR from sputum culture - will add zosyn for double coverage. continue the other two abx for now until we have speciation/ sensitivities. was also called with positive blood cultures, but these appear to be CONS; at this point, I do not think it is necessary to treat specifically or add vanc. He does not appear septic without fever or elevated WBC. 03/08 - DC Zmax, Zosyn as Pseudomonas garland sensitive. Leave Levaquin. Restart Steroids as they had not been continued as I had thought. Will do solumedrol 125mg q6h x 24-48h, then back down. Could be reason for poor ventilation weaning to date. CXR shows no developing pna, good tube placement. both blood cultures showed CONS, so I am not going to treat that as stated above. 03/09 - Extubated uneventfully. Pt about ready to order bfast. Appreciate Dr Agustin. Maintain on FQ single agent along with lower dose of Solu-medrol 03/10/17: doing well and moving to floor, already has CPAP and O2 at home 03/11/17: DC tomorrow on HH? Poor prognosis overall 03/12/17: Reintubated due to respiratory failure 03/13/17: Wean protocol underway. [facility] tomorrow? ACUTE RESPIRATORY ACIDOSIS ADM: Improving with mechanical ventilation. 03/07: Believe that his sedation is a bit too aggressive, will change to Precedex so taht he can be more alert and we can try weaning vent again in the morning. 03/08 - plan to consult Dr Agustin in the AM for assistance with ventilator support and weaning. Continue Precedex for now. PT overbreathing the vent today. 03/09 - Extubated 03/12- reintubated LACTIC ACIDOSIS DECREASED URINE OUTPUT HYPOKALEMIA 03/07 - concerning that he is riding the vent, not urinating despite adequate MAP. have bolused several times, now on fluids. will monitor close I/O. check BMP at 4:00 to make sure creatinine not bumping. replace with KPhos as the KCl has now shown adequate rise in K. 03/08 - nicely improved HYPERGLYCEMIA ADM: No h/o DMT2, likely steroid related 03/07 - Improved, on SSI ICU protocol 03/08 - no changes GI Proph: Protonix DVT Proph: SCDs. will add Lovenox today since he is very ill and likely to be bedridden for a considerable amount of time. Plan: Prognosis guarded SW consult Evaluate Hospice Candidacy Possible transfer to [facility] tomorrow Likely needs Hospice due to end stage COPD SHERRILL TAVARES DO Mar 13, 2017 11:41
[2017-03-13] MEDS ORDERED: methylPREDNISolone 40 MG/ML (Solu-MEDROL) VIAL IV ONE (11:45)
[2017-03-13] MEDS: ENOXAPARIN 40 MG/0.4 ML (LOVENOX) SYR SC SCH (12:16)
[2017-03-13] MEDS: LEVOFLOXACIN 750 MG/150 ML IV 150 ML IV SCH (12:16)
[2017-03-14] VITALS (19 sets, daily range): BP systolic 124–203; BP diastolic 66–122
[2017-03-14] MEDS: NOREPINEPHRINE 4 MG in D5W 250 ML (IVPB) 250 ML IV SCH (00:52)
[2017-03-14] MEDS: methylPREDNISolone 40 MG/ML (Solu-MEDROL) VIAL IV SCH ×2 (02:25→10:03)
[2017-03-14] MEDS: RT-ALBUTEROL/IPRATROPIUM 3 ML (DUONEB) VIAL INH SCH ×3 (02:43→10:31)
[2017-03-14 04:04] LABS: BASOPHILS % (AUTO) 0 % (0-10); EOSINOPHILS % (AUTO) 0 % (0-10); LYMPHOCYTES # (AUTO) 0.2 X 10^3 (1.0-4.0); LYMPHOCYTES % (AUTO) 2 % (12-44); MEAN CORPUSCULAR HEMOGLOBIN 29 PG (25-34); MEAN CORPUSCULAR HGB CONC 30 G/DL (32-36); MEAN CORPUSCULAR VOLUME 95 FL (80-99); MEAN PLATELET VOLUME 9.6 FL (7.4-10.4); MONOCYTES % (AUTO) 11 % (0-12); NEUTROPHILS # (AUTO) 7.7 X 10^3 (1.8-7.8); NEUTROPHILS % (AUTO) 87 % (42-75); PLATELET COUNT 206 10^3/uL (130-400); WHITE BLOOD COUNT 8.9 10^3/uL (4.3-11.0)
[2017-03-14 04:30] LABS: ALANINE AMINOTRANSFERASE 23 U/L (0-55); ALBUMIN 2.9 G/DL (3.2-4.5); ANION GAP 8 MMOL/L (5-14); ASPARTATE AMINO TRANSFERASE 24 U/L (5-34); BILIRUBIN,TOTAL 0.3 MG/DL (0.1-1.0); BLOOD UREA NITROGEN 21 MG/DL (7-18); BUN/CREATININE RATIO 33; CALCIUM 8.2 MG/DL (8.5-10.1); CARBON DIOXIDE 37 MMOL/L (21-32); CHLORIDE 98 MMOL/L (98-107); CREATININE SERUM 0.63 MG/DL (0.60-1.30); GFR ESTIMATED > 60; GLUCOSE 113 MG/DL (70-105); MAGNESIUM 1.9 MG/DL (1.8-2.4); PHOSPHORUS 3.4 MG/DL (2.3-4.7); POTASSIUM 3.5 MMOL/L (3.6-5.0); SODIUM 143 MMOL/L (135-145); TOTAL PROTEIN 5.4 G/DL (6.4-8.2)
[2017-03-14 04:39] LABS: ABG BASE EXCESS 15.3 MMOL/L (-2.5-2.5); ABG OXYGEN SATURATION 96 % (94-100); ABG PH 7.36 (7.37-7.43); ABG PO2 76 MMHG (79-93); ABG TCO2 43.6 MMOL/L (21.0-31.0)
[2017-03-14 04:45] LABS: ABG HCO3 41 MMOL/L (23-27); ABG PCO2 75 MMHG (35-45)
[2017-03-14 04:46] LABS: ALLENS TEST YES-POS; PATIENT TEMP 99.2
[2017-03-14] MEDS: MAGNESIUM 1 GM/100 ML IVPB 100 ML IV SCH (05:16)
[2017-03-14] MEDS: KCL 20 MEQ TAB (K-DUR) PO SCH (05:17)
[2017-03-14] MEDS: POTASSIUM CL 10MEQ/50ML IVPB 50 ML IV SCH ×3 (05:26→06:30)
[2017-03-14] MEDS: NS IV 1000 ML 1,000 ML IV SCH (05:35)
[2017-03-14 06:30] LABS: ABG BASE EXCESS 12.4 MMOL/L (-2.5-2.5); ABG HCO3 38 MMOL/L (23-27); ABG OXYGEN SATURATION 98 % (94-100); ABG PCO2 65 MMHG (35-45); ABG PH 7.39 (7.37-7.43); ABG PO2 129 MMHG (79-93); ABG TCO2 39.9 MMOL/L (21.0-31.0); ALLENS TEST YES-POS; PATIENT TEMP 98.7
[2017-03-14] MEDS ORDERED: FUROSEMIDE 40 MG/4 ML INJ (LASIX) IVP ONE (08:30)
[2017-03-14] MEDS: morphine INJ 4 MG/ML 1 ML (VIAL/SYRINGE) IVP PRN ×2 (08:36→12:57)
--- NOTE | 2017-03-14 08:38 | Pulmonary Progress Note ---
Subjective Subjective/Events-last exam Pt is doing ok off vent he does get very anxious. Exam Exam Vital Signs Date Time Temp Pulse Resp B/P (MAP) Pulse Ox O2 Delivery O2 Flow Rate FiO2 03/14/17 07:57 147 19 96 35.00 03/14/17 07:42 3.50 03/14/17 07:00 125 03/14/17 06:30 128 21 159/86 95 4.00 03/14/17 06:00 133 16 203/103 94 4.00 03/14/17 05:00 115 19 154/83 96 4.00 03/14/17 04:00 30 03/14/17 04:00 99.2 115 25 138/75 98 30.00 03/14/17 03:47 118 26 98 30.00 03/14/17 03:40 118 23 100 30.00 03/14/17 03:30 124 18 153/77 100 28.00 03/14/17 03:15 130 25 177/91 99 28.00 03/14/17 03:00 113 27 201/122 83 28.00 03/14/17 02:43 95 34 93 28.00 03/14/17 02:00 93 23 143/73 98 28.00 03/14/17 01:00 91 03/14/17 01:00 90 32 132/69 96 28.00 03/14/17 00:08 95 31 97 28.00 03/14/17 00:00 98.9 94 30 126/66 94 28.00 03/14/17 00:00 28 03/13/17 23:00 96 30 129/66 95 28.00 03/13/17 22:15 97 34 98 28.00 03/13/17 22:00 96 26 136/77 97 30.00 03/13/17 21:00 96 31 126/70 96 30.00 03/13/17 20:48 95 26 97 30.00 03/13/17 20:00 98.0 97 23 113/58 97 30.00 03/13/17 20:00 30 03/13/17 19:00 103 03/13/17 19:00 101 21 136/74 100 30.00 03/13/17 18:45 99 25 97 30.00 03/13/17 18:00 92 15 129/70 99 30.00 03/13/17 17:00 101 25 138/76 100 30.00 03/13/17 16:00 99 16 121/68 100 30.00 03/13/17 15:54 104 21 98 30.00 03/13/17 15:28 100 30 03/13/17 15:28 98.6 03/13/17 15:00 105 29 127/71 100 30.00 03/13/17 14:13 95 38 100 30.00 03/13/17 14:00 95 23 118/66 100 30.00 03/13/17 13:00 105 38 118/63 100 30.00 03/13/17 13:00 105 03/13/17 12:26 99 30 03/13/17 12:08 112 40 100 30.00 03/13/17 12:00 118 32 124/71 100 30.00 03/13/17 11:00 101 33 111/67 98 30.00 03/13/17 10:38 98 27 98 30 03/13/17 10:00 91 35 118/74 99 30.00 03/13/17 09:00 88 21 122/71 100 30.00 I & O 03/14/17 07:00 Intake Total 4368 ml Output Total 3500 ml Balance 868 ml General Appearance: No Apparent Distress, WD/WN HEENT: PERRL/EOMI Respiratory: No Accessory Muscle Use, No Respiratory Distress, Decreased Breath Sounds Cardiovascular: Regular Rate, Rhythm, No Edema Capillary Refill: Less Than 3 Seconds Gastrointestinal: normal bowel sounds, non tender, soft, no organomegaly, no pulsatile mass Extremity: No Calf Tenderness, No Pedal Edema Neurologic/Psychiatric: Alert Skin: Normal Color, Warm/Dry Results Lab Laboratory Tests 03/12/17 10:52 03/12/17 17:10 03/13/17 04:17 03/14/17 03:43 Assessment/Plan Assessment/Plan cute on chronic respiratory failure- Pt is improving -Pt is awake and alert while on vent -PT IS DOING OK OFF VENT - RIGHT NOW HE IS ON BIPAP SECONDARY TO ANXIETY AND DYSPNEA -MORPHINE FOR AIR HUNGER -will use thermaflow during day instead of bipap-- use bipap - home vent to mask - CURRENTLY DOES NOT HAVE WITH HIM Acute COPDAE - solumedrol 40 IV Q6 -DuoNeb Q 4 Sinus tach secondary to anxiety -check EKG hypokalemia -replace 60meq today Pneumonia with pseudomonas -Agree with Levaquin x 14 days total deconditioning/debility -I discussed with Jass from [facility] they are planning on taking patient today 233 30min spent with patient and medical team Clinical Quality Measures DVT/VTE Risk/Contraindication: Risk Factor Score Per Nursin RFS Level Per Nursing on Admit: 4+=Very High ARELI SHERIDAN DO Mar 14, 2017 08:37
--- NOTE | 2017-03-14 09:26 | Diagnostic Imaging Report ---
INDICATION: Dyspnea. Comparison made with prior examination from 03/13/17. FINDINGS: The heart size is normal. Mediastinum is unremarkable. There is some air-trapping compatible with COPD. There is no pleural effusion or pneumothorax. The mediastinum is unremarkable. IMPRESSION: COPD. No other acute cardiopulmonary abnormality. Dictated by: Dictated on workstation # [id number]
[2017-03-14] MEDS ORDERED: KCL 20 MEQ TAB (K-DUR) PO ONE (10:00)
[2017-03-14] MEDS: ENOXAPARIN 40 MG/0.4 ML (LOVENOX) SYR SC SCH (10:02)
[2017-03-14] MEDS: LEVOFLOXACIN 750 MG/150 ML IV 150 ML IV SCH (10:03)
[2017-03-14] MEDS: PANTOPRAZOLE 40 MG/10 ML (PROTONIX) VIAL IV SCH (10:03)
--- NOTE | 2017-03-14 10:57 | Discharge Summary-Hospitalist ---
Diagnosis/Chief Complaint Date of Admission March 06, 2017 at 01:12 Date of Discharge Discharge Diagnosis Dr. Agustin Review: Pt successfully weaned off vent and now going to [facility] AFVSS, thin, chronically ill, alert RRR, Diminished BS all gonzalez no significant changes No edema Assessment: ACUTE ON CHRONIC RESPIRATORY FAILURE SEVERE COPD EXACERBATION ADM: Patient now intubated with improvement in blood gases. Will continue MV for another 24 hours, then try weaning parameters tomorrow morning with plans to extubate if he passes. Have him on Zithromax and LEvaquin, steroids at present. Patient already showing improvement, was able to communicate slightly with me but not to really answer questions. 03/07 - Patient growing GNR from sputum culture - will add zosyn for double coverage. continue the other two abx for now until we have speciation/ sensitivities. was also called with positive blood cultures, but these appear to be CONS; at this point, I do not think it is necessary to treat specifically or add vanc. He does not appear septic without fever or elevated WBC. 03/08 - DC Zmax, Zosyn as Pseudomonas garland sensitive. Leave Levaquin. Restart Steroids as they had not been continued as I had thought. Will do solumedrol 125mg q6h x 24-48h, then back down. Could be reason for poor ventilation weaning to date. CXR shows no developing pna, good tube placement. both blood cultures showed CONS, so I am not going to treat that as stated above. 03/09 - Extubated uneventfully. Pt about ready to order bfast. Appreciate Dr Agustin. Maintain on FQ single agent along with lower dose of Solu-medrol 03/10/17: doing well and moving to floor, already has CPAP and O2 at home 03/11/17: DC tomorrow on HH? Poor prognosis overall 03/12/17: Reintubated due to respiratory failure 03/13/17: Wean protocol underway. [facility] tomorrow? 03/14: weaned off vent going to [facility] ACUTE RESPIRATORY ACIDOSIS ADM: Improving with mechanical ventilation. 03/07: Believe that his sedation is a bit too aggressive, will change to Precedex so taht he can be more alert and we can try weaning vent again in the morning. 03/08 - plan to consult Dr Agustin in the AM for assistance with ventilator support and weaning. Continue Precedex for now. PT overbreathing the vent today. 03/09 - Extubated 03/12- reintubated 03/14: extubated 03/13/17 LACTIC ACIDOSIS DECREASED URINE OUTPUT HYPOKALEMIA 03/07 - concerning that he is riding the vent, not urinating despite adequate MAP. have bolused several times, now on fluids. will monitor close I/O. check BMP at 4:00 to make sure creatinine not bumping. replace with KPhos as the KCl has now shown adequate rise in K. 03/08 - nicely improved HYPERGLYCEMIA ADM: No h/o DMT2, likely steroid related 03/07 - Improved, on SSI ICU protocol 03/08 - no changes GI Proph: Protonix DVT Proph: SCDs. will add Lovenox today since he is very ill and likely to be bedridden for a considerable amount of time. Plan: Prognosis guarded SW consult Evaluate Hospice Candidacy Possible transfer to [facility] tomorrow Likely needs Hospice due to end stage COPD Reason Hospital Visit/Course Note from 03/14/17: Patient had an uneventful night he was successfully extubated yesterday and will be going to [facility] today because of the long-term severe COPD that will likely need specialized management I predict he is so end stage that he is a hospice candidate He denies any pain currently Yee in place Final stable, pleasant, chronically ill, mild tachypnea but not excessive Diminished breath sounds all gonzalez Normal range of motion all extremities Hospital course: Patient had a lengthy hospital course he was admitted placed on ventilator for respiratory failure acute on chronic due to exacerbation of COPD and pneumonia. He actually did well and Dr. Agustin and his expertise facilitated extubation and he was transferred to the floor but worsened through the night and morning at the end of the week required reintubation and [facility] was consulted. Patient was stable no new infiltrates on chest x-ray and he agreed for [facility] for longer term respiratory failure management and will monitor closely at that time but end-stage prognosis I suspect he will be a hospice candidate. Discharge Summary Discharge Physical Examination Allergies: Coded Allergies: No Known Drug Allergies (Unverified , 10/02/09) Vitals & I&Os Vital Signs Date Time Temp Pulse Resp B/P (MAP) Pulse Ox O2 Delivery O2 Flow Rate FiO2 03/14/17 10:29 100 20.00 35 03/14/17 09:00 114 26 150/80 03/14/17 04:00 99.2 6/2/17 09:19 Mechanical Ventilator Hospital Course Labs (last 24 hrs) Laboratory Tests 03/13/17 12:43: Glucometer 125H 03/13/17 18:39: Glucometer 112H 03/14/17 03:43: White Blood Count 8.9, Red Blood Count 3.60L, Hemoglobin 10.4L, Hematocrit 34L, Mean Corpuscular Volume 95, Mean Corpuscular Hemoglobin 29, Mean Corpuscular Hemoglobin Concent 30L, Red Cell Distribution Width 14.0, Platelet Count 206, Mean Platelet Volume 9.6, Neutrophils (%) (Auto) 87H, Lymphocytes (%) (Auto) 2L , Monocytes (%) (Auto) 11, Eosinophils (%) (Auto) 0, Basophils (%) (Auto) 0, Neutrophils # (Auto) 7.7, Lymphocytes # (Auto) 0.2L, Monocytes # (Auto) 1.0, Eosinophils # (Auto) 0.0, Basophils # (Auto) 0.0, Sodium Level 143, Potassium Level 3.5L, Chloride Level 98, Carbon Dioxide Level 37H, Anion Gap 8, Blood Urea Nitrogen 21H, Creatinine 0.63, Estimat Glomerular Filtration Rate > 60, BUN /Creatinine Ratio 33, Glucose Level 113H, Calcium Level 8.2L, Phosphorus Level 3.4, Magnesium Level 1.9, Total Bilirubin 0.3, Aspartate Amino Transf (AST/SGOT ) 24, Alanine Aminotransferase (ALT/SGPT) 23, Alkaline Phosphatase 43, Total Protein 5.4L, Albumin 2.9L 03/14/17 04:35: Blood Gas Puncture Site RIGHT RADIAL, Blood Gas Patient Temperature 99.2, Arterial Blood pH 7.36L, Arterial Blood Partial Pressure CO2 75*H, Arterial Blood Partial Pressure O2 76L, Arterial Blood HCO3 41*H, Arterial Blood Total CO2 43.6H, Arterial Blood Oxygen Saturation 96, Arterial Blood Base Excess 15.3H , Tirso Test YES-POS, Blood Gas Ventilator Setting YES, Blood Gas Inspired Oxygen 28% 03/14/17 06:25: Blood Gas Puncture Site RIGHT RADIAL, Blood Gas Patient Temperature 98.7, Arterial Blood pH 7.39, Arterial Blood Partial Pressure CO2 65H, Arterial Blood Partial Pressure O2 129H, Arterial Blood HCO3 38H, Arterial Blood Total CO2 39.9H, Arterial Blood Oxygen Saturation 98, Arterial Blood Base Excess 12.4H, Tirso Test YES-POS, Blood Gas Ventilator Setting NO, Blood Gas Inspired Oxygen 4L Microbiology 03/06/17 Blood Culture - Preliminary, Resulted Staph, Coag Neg (Curatorial Assistant) 03/12/17 Gram Stain - Final, Complete 03/12/17 Sputum Culture - Final, Complete Yeast Species Normal amanda 03/12/17 Urine Culture - Preliminary, Resulted NO GROWTH Pending Labs Laboratory Tests 03/14/17 03:43: White Blood Count 8.9, Red Blood Count 3.60, Hemoglobin 10.4, Hematocrit 34, Mean Corpuscular Volume 95, Mean Corpuscular Hemoglobin 29, Mean Corpuscular Hemoglobin Concent 30, Red Cell Distribution Width 14.0, Platelet Count 206, Mean Platelet Volume 9.6, Neutrophils (%) (Auto) 87, Lymphocytes (%) (Auto) 2, Monocytes (%) (Auto) 11, Eosinophils (%) (Auto) 0, Basophils (%) (Auto) 0, Neutrophils # (Auto) 7.7, Lymphocytes # (Auto) 0.2, Monocytes # (Auto) 1.0, Eosinophils # (Auto) 0.0, Basophils # (Auto) 0.0, Sodium Level 143, Potassium Level 3.5, Chloride Level 98, Carbon Dioxide Level 37, Anion Gap 8, Blood Urea Nitrogen 21, Creatinine 0.63, Estimat Glomerular Filtration Rate > 60, BUN/ Creatinine Ratio 33, Glucose Level 113, Calcium Level 8.2, Phosphorus Level 3.4 , Magnesium Level 1.9, Total Bilirubin 0.3, Aspartate Amino Transf (AST/SGOT) 24 , Alanine Aminotransferase (ALT/SGPT) 23, Alkaline Phosphatase 43, Total Protein 5.4, Albumin 2.9 03/14/17 04:35: Blood Gas Puncture Site RIGHT RADIAL, Blood Gas Patient Temperature 99.2, Arterial Blood pH 7.36, Arterial Blood Partial Pressure CO2 75, Arterial Blood Partial Pressure O2 76, Arterial Blood HCO3 41, Arterial Blood Total CO2 43.6, Arterial Blood Oxygen Saturation 96, Arterial Blood Base Excess 15.3, Tirso Test YES-POS, Blood Gas Ventilator Setting YES, Blood Gas Inspired Oxygen 28% 03/14/17 06:25: Blood Gas Puncture Site RIGHT RADIAL, Blood Gas Patient Temperature 98.7, Arterial Blood pH 7.39, Arterial Blood Partial Pressure CO2 65, Arterial Blood Partial Pressure O2 129, Arterial Blood HCO3 38, Arterial Blood Total CO2 39.9, Arterial Blood Oxygen Saturation 98, Arterial Blood Base Excess 12.4, Tirso Test YES-POS, Blood Gas Ventilator Setting NO, Blood Gas Inspired Oxygen 4L Discharge Home Medications: Active Scripts Active Reported Zyrtec (Cetirizine HCl) 10 Mg Tablet 10 Mg PO DAILY Ipratropium [place] 0.2 Mg/1 Ml Solution 0.2 Mg NEB QID Breo Ellipta 100-25 Mcg INH (Fluticasone/Vilanterol) 1 Each Blst.w.dev 1 Puff INH DAILY Montelukast Sodium 10 Mg Tablet 10 Mg PO DAILY Instructions to patient/family Please see electonic discharge instructions given to patient. Clinical Quality Measures DVT/VTE Risk/Contraindication: Risk Factor Score Per Nursin RFS Level Per Nursing on Admit: 4+=Very High SHERRILL TAVARES DO Mar 14, 2017 10:57
== END 2017-03-14 12:55 | DRG 207 ==
LOC: EDUNIT# 23:49 → ER 23:51 → ICU 03-06 01:12 → 4TH 03-10 09:34 → ICU 03-12 08:35
PROVIDERS: ADMIT Pediatrics; ATTEND Pediatrics
PROC: 5A1955Z Respiratory Ventilation, Greater than 96 Consecutive Hours (ICD-10-PCS; principal; 2017-03-06)
DX: J96.21 Acute and chronic respiratory failure with hypoxia (principal); J96.22 Acute and chronic respiratory failure with hypercapnia; J44.1 Chronic obstructive pulmonary disease with (acute) exacerbation; J44.0 Chronic obstructive pulmonary disease with (acute) lower respiratory infection; J15.1 Pneumonia due to Pseudomonas; E87.2 Acidosis; I50.30 Unspecified diastolic (congestive) heart failure; J45.909 Unspecified asthma, uncomplicated; F17.210 Nicotine dependence, cigarettes, uncomplicated; F32.9 Major depressive disorder, single episode, unspecified; R73.9 Hyperglycemia, unspecified; T38.0X5A Adverse effect of glucocorticoids and synthetic analogues, initial encounter; E87.6 Hypokalemia; E87.5 Hyperkalemia; I95.9 Hypotension, unspecified; E78.00 Pure hypercholesterolemia, unspecified; R63.4 Abnormal weight loss; I11.0 Hypertensive heart disease with heart failure; R41.0 Disorientation, unspecified; R25.1 Tremor, unspecified; E83.42 Hypomagnesemia; E83.39 Other disorders of phosphorus metabolism; Z91.19 Patient's noncompliance with other medical treatment and regimen
CPT/HCPCS: 36415; 71010; 71260; 74177; 76937; 80048; 80053; 80076; 80320; 81000; 82040; 82271; 82805; 82962; 83605; 83735; 83880; 84100; 85007; 85025; 85027; 85610; 85730; 87040; 87070; 87077; 87081; 87088; 87186; 87205; 93005; 93041; 93306; 94002; 94003; 94640; 94660; 94664; 94760; 94799; 96361; 96374

== ENCOUNTER 2017-04-08 14:43 | Inpatient (IN) | payer MEDICARE, MEDICAID ==
[2017-04-08] VITALS (12 sets, daily range): BP systolic 102–158; BP diastolic 71–90
[~2017-04-08] VITALS: Ht 160 cm; Wt 71.8 kg
[~2017-04-08 14:43] MED LIST changes: +CETI10TA20 PO; +FLUT1AER INH; +IPRA0.2S51 NEB; +MONT10TA24 PO
[2017-04-08] MEDS ORDERED: DEXAMETHASONE PF 10 MG/ML (DECADRON) VIAL ONE (14:47)
[2017-04-08] MEDS ORDERED: RT-ALBUTEROL/IPRATROPIUM 3 ML (DUONEB) VIAL ONE (14:47)
[2017-04-08] MEDS ORDERED: methylPREDNISolone 125 MG (Solu-MEDROL) VIAL IVP ONE (15:00)
[2017-04-08] MEDS ORDERED: RT-ALBUTEROL/IPRATROPIUM 3 ML (DUONEB) VIAL INH ONE (15:00)
[2017-04-08] MEDS ORDERED: DEXAMETHASONE 4 MG/ML SDV (DECADRON) IH ONE (15:00)
[2017-04-08 15:05] LABS: BASOPHILS % (AUTO) 0 % (0-10); EOSINOPHILS # (AUTO) 0.2 10^3/uL (0.0-0.3); EOSINOPHILS % (AUTO) 1 % (0-10); LYMPHOCYTES # (AUTO) 0.8 X 10^3 (1.0-4.0); LYMPHOCYTES % (AUTO) 6 % (12-44); MEAN CORPUSCULAR HEMOGLOBIN 30 PG (25-34); MEAN CORPUSCULAR HGB CONC 31 G/DL (32-36); MEAN CORPUSCULAR VOLUME 96 FL (80-99); MEAN PLATELET VOLUME 8.5 FL (7.4-10.4); MONOCYTES # (AUTO) 1.4 X 10^3 (0.0-1.0); MONOCYTES % (AUTO) 11 % (0-12); NEUTROPHILS # (AUTO) 10.5 X 10^3 (1.8-7.8); NEUTROPHILS % (AUTO) 81 % (42-75); PLATELET COUNT 233 10^3/uL (130-400); RED BLOOD COUNT 3.26 10^6/uL (4.35-5.85); RED CELL DISTRIBUTION WIDTH 14.9 % (10.0-14.5); WHITE BLOOD COUNT 12.9 10^3/uL (4.3-11.0)
[2017-04-08 15:05] LABS: ABG BASE EXCESS 14.5 MMOL/L (-2.5-2.5); ABG OXYGEN SATURATION 100 % (94-100); ABG PO2 229 MMHG (79-93); ABG TCO2 44.6 MMOL/L (21.0-31.0)
[2017-04-08 15:07] LABS: ABG PCO2 94 MMHG (35-45); ABG PH 7.27 (7.37-7.43)
[2017-04-08 15:08] LABS: ABG HCO3 42 MMOL/L (23-27); ALLENS TEST YES-POS; PATIENT TEMP 98.8
[2017-04-08 15:15] LABS: INR 0.9 (0.8-1.4); PROTHROMBIN TIME PATIENT 11.4 SEC (12.2-14.7)
--- NOTE | 2017-04-08 15:25 | Diagnostic Imaging Report ---
EXAMINATION: Portable upright radiograph of the chest. INDICATION: Shortness of breath. FINDINGS: The heart size is slightly enlarged. The lungs are hyperinflated, probably related to COPD. There is mild bibasilar infiltrate or atelectasis. No effusion. No pneumothorax. IMPRESSION: Mild bibasilar infiltrate or atelectasis. Dictated by: Dictated on workstation # [id number]
[2017-04-08 15:28] LABS: ALANINE AMINOTRANSFERASE 26 U/L (0-55); ALBUMIN 3.2 GM/DL (3.2-4.5); ANION GAP 9 MMOL/L (5-14); ASPARTATE AMINO TRANSFERASE 14 U/L (5-34); BILIRUBIN,TOTAL 0.2 MG/DL (0.1-1.0); BLOOD UREA NITROGEN 17 MG/DL (7-18); BUN/CREATININE RATIO 27; CALCIUM 8.7 MG/DL (8.5-10.1); CARBON DIOXIDE 38 MMOL/L (21-32); CHLORIDE 95 MMOL/L (98-107); CREATINE KINASE 14 U/L (30-200); CREATININE SERUM 0.64 MG/DL (0.60-1.30); GFR ESTIMATED > 60; GLUCOSE 155 MG/DL (70-105); MAGNESIUM 1.9 MG/DL (1.8-2.4); POTASSIUM 4.3 MMOL/L (3.6-5.0); SODIUM 142 MMOL/L (135-145); TOTAL PROTEIN 5.7 GM/DL (6.4-8.2)
--- NOTE | 2017-04-08 15:31 | ED Respiratory ---
General Chief Complaint: Respiratory Problems Stated Complaint: SOA Nursing Triage Note: to ED 6 by [facility] with reports of shortness of breath. Patient presents on CPAP. EMS reports home health nursing staff was there and had placed the patient on 3LPM via nasal cannula, with saturations improving to 91-93%. EMS established 18g IV to the left hand KEYLINER. Source: patient (LIMITED HISTORIAN --LETHARGIC, DECREASED RESPONSIVENESS), old records (ALL PMH IS FROM OLD RECORDS) Exam Limitations: clinical condition History of Present Illness Time seen by provider: 14:44 Initial Comments PT ARRIVES VIA EMS FROM HOME--ON CPAP PT HAS COPD, CHRONIC RESPIRATORY FAILURE AND HAS BEEN INTUBATED MORE THAN ONCE. PT WAS ADMITTED HERE 03/04-03/14 FOR RESPIRATORY FAILURE, AND TRANSFERRED TO [facility] ON [facility], AND JUST GOT HOME FROM [facility] ON Wednesday04/04/17 HOME HEALTH NURSE REPORTED TO EMS THAT PT'S O2 SAT WAS IN 70'S, AND WAS VERY HARD TO ROUSE, SO EMS WAS CALLED. PT IS SUPPOSED TO BE WEARING HOME BIPAP, BUT REPORTEDLY DID NOT WEAR IT LAST NIGHT OR TODAY EMS REPORT THAT O2 SAT WAS 91% ON 3L/NC WHEN THEY ARRIVED AT SCENE, AND EMS THEN PLACED PT ON CPAP. NO NEB TX GIVEN BY EMS, AND IS UNKNOWN IF HE HAS HAD ANY AT ALL TODAY EMS REPORT THAT PT TOLD THEM HE DOES NOT WANT TO BE INTUBATED EVER AGAIN PT IS DROWSY/LETHARGIC ON ARRIVAL TO ER , BUT REPEATS "NO INTUBATE" MULTIPLE TIMES TO ME AND ER STAFF Allergies and Home Medications Allergies Coded Allergies: No Known Drug Allergies (Unverified , 10/02/09) Home Medications Cetirizine HCl 10 Mg Tablet, 10 MG PO DAILY, (Reported) Fluticasone/Vilanterol 1 Each Blst.w.dev, 1 PUFF INH DAILY, (Reported) Ipratropium [place] 0.2 Mg/1 Ml Solution, 0.2 MG NEB QID, (Reported) Montelukast Sodium 10 Mg Tablet, 10 MG PO DAILY, (Reported) Constitutional: other (PT UNABLE TO ANSWER QUESTIONS ON ARRIVAL) Respiratory: see HPI Past Lpcsdfa-Cvepqp-Bfoesy Hx Patient Social History Alcohol Use: Past History (HISTORY OF ABUSE) Recreational Drug Use: No Smoking Status: Former Smoker (RECENTLY QUIT?) Type Used: Cigarettes Recent Foreign Travel: No Contact w/Someone Who Travel: No Recent Infectious Disease Expo: No Recent Hopitalizations: Yes Immunizations Up To Date Tetanus Booster (TDap): Unknown Seasonal Allergies Seasonal Allergies: No Surgeries HX Surgeries: Yes (HERNIA,LIVER LAC.,LEFT LEG PIN,JAW SURG.) Surgeries: Abdominal, Orthopedic Respiratory Hx Respiratory Disorders: Yes (END STAGE RESPIRATORY FAILURE--LAST INTUBATED AND RELEASED FROM [facility] 04/04/17) Respiratory Disorders: Asthma, Pneumonia, COPD Cardiovascular Hx Cardiac Disorders: Yes (diastolic heart failure with normal ejection fraction) Cardiac Disorders: High Cholesterol, Hypertension, Valvular Heart Disease Neurological Hx Neurological Disorders: No Reproductive System Hx Reproductive Disorders: No Genitourinary Hx Genitourinary Disorders: No Gastrointestinal Hx Gastrointestinal Disorders: No Musculoskeletal Hx Musculoskeletal Disorders: Yes Musculoskeletal Disorders: Degenerate Disk Disease, Chronic Back Pain Endocrine Hx Endocrine Disorders: No HEENT HX ENT Disorders: No Cancer Hx Cancer: No Psychosocial Hx Psychiatric Problems: Yes (history of alcohol dependence) Integumentary HX Skin/Integumentary Disorder: No Blood Transfusions Hx Blood Disorders: No Family Medical History Significant Family History: No Pertinent Family Hx Family Medial History: Completed stroke 19 MOTHER FH: brain tumor 19 FATHER FH: brain tumor 19 FATHER No Family History of: AIDS Physical Exam Vital Signs Vital Sign - Last 12Hours 04/08/17 04/08/17 04/08/17 14:58 15:00 15:12 Temp 99.5 Pulse 101 Resp 43 B/P (MAP) 125/74 Pulse Ox 99 O2 Delivery Bi-pap O2 Flow Rate 60.00 FiO2 60 Capillary Refill : Less Than 3 Seconds General Appearance: moderate distress, other (LETHARGIC, KEEPS EYES CLOSED/ VERY DROWSY. PT VERY UNKEMPT, EXTREMELY MALODOROUS, CLOTHING FILTHY WITH OLD/ DRIED FOOD ALL OVER THE FRONT OF SHIRT AND PANTS. REEKS OF OLD URINE. LOWER LEGS WRAPPED WITH GAUZE AND DRESSING IS VERY DIRTY. ) Neck: normal inspection Respiratory: respiratory distress, decreased breath sounds (DECREASED AERATION IN ALL LUNG [place]), rhonchi (SCATTERED RHONCHI BILATERALLY) Cardiovascular: regular rate, rhythm, no murmur Gastrointestinal: non tender, soft Extremities: normal range of motion, non-tender, pedal edema (2-3+ EDEMA TO FEET AND LOWER LEGS--WRAPPED WITH GAUZE) Neurologic/Psychiatric: physical design engineer II-XII nml as tested, no motor/sensory deficits, other (SEMI-ALERT, MINIMALLY RESPONSIVE) Skin: warm/dry, pallor Focused Exam Lactic Acid Level Laboratory Tests Test 04/08/17 14:55 Lactic Acid Level 1.24 MMOL/L (0.50-2.00) Date of ETT Placement: Mar 12, 2017 Time of ETT Placement: 0830 Progress/Results/Core Measures Results/Orders Lab Results Laboratory Tests Test 04/08/17 14:55 04/08/17 14:56 04/08/17 16:10 Range/Units White Blood Count 12.9 H 4.3-11.0 10^3/uL Red Blood Count 3.26 L 4.35-5.85 10^6/uL Hemoglobin 9.7 L 13.3-17.7 G/DL Hematocrit 31 L 40-54 % Mean Corpuscular Volume 96 80-99 FL Mean Corpuscular Hemoglobin 30 25-34 PG Mean Corpuscular Hemoglobin Concent 31 L 32-36 G/DL Red Cell Distribution Width 14.9 H 10.0-14.5 % Platelet Count 233 130-400 10^3/uL Mean Platelet Volume 8.5 7.4-10.4 FL Neutrophils (%) (Auto) 81 H 42-75 % Lymphocytes (%) (Auto) 6 L 12-44 % Monocytes (%) (Auto) 11 0-12 % Eosinophils (%) (Auto) 1 0-10 % Basophils (%) (Auto) 0 0-10 % Neutrophils # (Auto) 10.5 H 1.8-7.8 X 10^3 Lymphocytes # (Auto) 0.8 L 1.0-4.0 X 10^3 Monocytes # (Auto) 1.4 H 0.0-1.0 X 10^3 Eosinophils # (Auto) 0.2 0.0-0.3 10^3/uL Basophils # (Auto) 0.0 0.0-0.1 10^3/uL Neutrophils % (Manual) 77 % Lymphocytes % (Manual) 9 % Monocytes % (Manual) 7 % Eosinophils % (Manual) 2 % Basophils % (Manual) 0 % Metamyelocytes % 1 % Band Neutrophils 4 % Hypochromasia SLIGHT Prothrombin Time 11.4 L 12.2-14.7 SEC INR Comment 0.9 0.8-1.4 Activated Partial Thromboplast Time 23 L 24-35 SEC Sodium Level 142 135-145 MMOL/L Potassium Level 4.3 3.6-5.0 MMOL/L Chloride Level 95 L 98-107 MMOL/L Carbon Dioxide Level 38 H 21-32 MMOL/L Anion Gap 9 5-14 MMOL/L Blood Urea Nitrogen 17 7-18 MG/DL Creatinine 0.64 0.60-1.30 MG/DL Estimat Glomerular Filtration Rate > 60 BUN/Creatinine Ratio 27 Glucose Level 155 H 70-105 MG/DL Lactic Acid Level 1.24 0.50-2.00 MMOL/L Calcium Level 8.7 8.5-10.1 MG/DL Magnesium Level 1.9 1.8-2.4 MG/DL Total Bilirubin 0.2 0.1-1.0 MG/DL Aspartate Amino Transf (AST/SGOT) 14 5-34 U/L Alanine Aminotransferase (ALT/SGPT) 26 0-55 U/L Alkaline Phosphatase 48 40-136 U/L Total Creatine Kinase 14 L 30-200 U/L Creatine Kinase MB 2.0 <6.6 NG/ML Troponin I < 0.30 <0.30 NG/ML B-Type Natriuretic Peptide 104.5 H <100.0 PG/ML Total Protein 5.7 L 6.4-8.2 GM/DL Albumin 3.2 3.2-4.5 GM/DL Blood Gas Puncture Site R BRACH RIGHT RADIAL Blood Gas Patient Temperature 98.8 98.4 Arterial Blood pH 7.27 *L 7.28 *L 7.37-7.43 Arterial Blood Partial Pressure CO2 94 *H 94 *H 35-45 MMHG Arterial Blood Partial Pressure O2 229 H 69 L 79-93 MMHG Arterial Blood HCO3 42 *H 42 *H 23-27 MMOL/L Arterial Blood Total CO2 44.6 H 45.1 H 21.0-31.0 MMOL/L Arterial Blood Oxygen Saturation 100 94 94-100 % Arterial Blood Base Excess 14.5 H 14.9 H -2.5-2.5 MMOL/L Tirso Test YES-POS POSITIVE Blood Gas Ventilator Setting NO NO Blood Gas Inspired Oxygen 60% 30% My Orders Orders - DANIELLE STEVENS DO Saline Lock/Iv-Start (04/08/17 14:51) Ekg Tracing (04/08/17 14:51) O2 (04/08/17 14:51) Monitor-Rhythm Ecg Trace Only (04/08/17 14:51) Arterial Blood Gas (04/08/17 14:51) BNP (04/08/17 14:51) Cbc With Automated Diff (04/08/17 14:51) Comprehensive Metabolic Panel (04/08/17 14:51) Creatine Kinase (04/08/17 14:51) Creatine Kinase Mb (04/08/17 14:51) Lactic Acid Analyzer (04/08/17 14:51) Magnesium (04/08/17 14:51) Protime With Inr (04/08/17 14:51) Partial Thromboplastin Time (04/08/17 14:51) Troponin I (04/08/17 14:51) Blood Culture (04/08/17 14:51) Chest 1 View, Ap/Pa Only (04/08/17 14:51) Albuterol/Ipra Inhalation Soln (Duoneb I (04/08/17 15:00) Dexamethasone Injection (Decadron Inject (04/08/17 15:00) Dexamethasone Pf Injection (Decadron Pf (04/08/17 14:47) Rt Request For Service (04/08/17 14:51) Svn Sm Volume Nebulizer Rt-Rfs (04/08/17 14:51) Methylprednisolone Sod Succ (Solu-Medrol (04/08/17 15:00) Albuterol/Ipra Inhalation Soln (Duoneb I (04/08/17 14:47) Manual Differential (04/08/17 14:55) Medications Given in ED Current Medications Medications Dose Ordered Sig/Francisco J Route Start Time Stop Time Status Last Admin Dose Admin Albuterol/ Ipratropium 3 ml STK-MED ONCE .ROUTE 04/08/17 14:47 04/08/17 14:53 DC 04/08/17 14:58 3 ML Dexamethasone Sodium Phosphate 10 mg STK-MED ONCE .ROUTE 04/08/17 14:47 04/08/17 14:52 DC 04/08/17 14:58 30 MG Methylprednisolone Sodium Succinate 125 mg ONCE ONCE IVP 04/08/17 15:00 04/08/17 15:01 DC 04/08/17 15:10 125 MG Vital Signs/I&O Vital Sign - Last 12Hours 04/08/17 04/08/17 04/08/17 6/29/17 14:58 15:00 15:12 15:44 Temp 99.5 98.8 Pulse 101 101 93 Resp 43 43 38 B/P (MAP) 125/74 142/89 Pulse Ox 99 99 99 93 O2 Delivery Bi-pap NIV Bilevel O2 Flow Rate 60.00 60.00 30.00 FiO2 60 04/08/17 15:44 Temp 98.8 Pulse 93 Resp 38 B/P (MAP) 125/74 Pulse Ox 93 O2 Flow Rate 30.00 Blood Pressure Mean: 91 Progress Note : Progress Note PT WITH IMPROVED MENTATION AT TIME OF ADMIT, MORE ALERT, A LITTLE MORE TALKATIVE NO DETERIORATION IN PT'S CONDITION DURING ER STAY O2 SATS REMAINED IN MID TO UPPER 90'S THROUGHOUT ER STAY ECG Initial ECG Impression Time: 15:04 Initial ECG Rate: 101 Initial ECG Rhythm: Normal Sinus Diagnostic Imaging Comments CXR--MILD BIBASILAR ATELECTASIS/INFILTRATE, PER RADIOLOGIST REPORT @ 1528 Reviewed: Reviewed by Me Departure Communication Progress Notes 1545--SPOKE WITH DR. SHERIDAN, [facility], WILL SEE PT IN CONSULT. 1548--MESSAGE TO DR. TAVARES 1555--SPOKE WITH DR. TAVARES, ACCEPTS PT FOR ADMIT. WILL ALSO CONSULT INTELLIGENCE GROUP SUPERVISOR AND PALLIATIVE CARE. Impression Impression: Primary Impression: Acute respiratory failure with hypercapnia Additional Impressions: INABILITY TO CARE FOR SELF Anemia Carbon dioxide narcosis RESPIRATORY ACIDOSIS Disposition: ADMITTED INPATIENT Condition: Improved Decision to Admit Reason: Admit from ER (General) Decision to Admit/Date: Apr 08, 2017 Time/Decision to Admit Time: 15:45 Departure-Patient Inst. Referrals: JAMIL HALE DO (PCP/Family) Primary Care Physician DANIELLE STEVENS DO Apr 08, 2017 15:31
[2017-04-08 15:35] LABS: TROPONIN I < 0.30 NG/ML (<0.30)
[2017-04-08 15:42] LABS: BAND NEUTROPHILS 4 %; BASOPHILS % (MANUAL) 0 %; EOSINOPHILS % (MANUAL) 2 %; LYMPHOCYTES % (MANUAL) 9 %; METAMYELOCYTES % 1 %; NEUTROPHILS % (MANUAL) 77 %
[2017-04-08 15:43] LABS: HYPOCHROMASIA SLIGHT
[2017-04-08 16:18] LABS: ABG BASE EXCESS 14.9 MMOL/L (-2.5-2.5); ABG OXYGEN SATURATION 94 % (94-100); ABG PO2 69 MMHG (79-93); ABG TCO2 45.1 MMOL/L (21.0-31.0)
[2017-04-08 16:20] LABS: ABG HCO3 42 MMOL/L (23-27); ABG PCO2 94 MMHG (35-45); ABG PH 7.28 (7.37-7.43)
[2017-04-08 16:21] LABS: ALLENS TEST POSITIVE; PATIENT TEMP 98.4
[2017-04-08] MEDS ORDERED: RT-ALBUTEROL/IPRATROPIUM 3 ML (DUONEB) VIAL INH PRN (17:15)
[2017-04-08] MEDS ORDERED: NS IV NR ×2 (18:00)
[2017-04-08] MEDS ORDERED: VANCOMYCIN IV NR ×2 (18:00)
[2017-04-08] MEDS: CEFEPIME INJECTION 2,000 MG in NS (IVPB) 50 ML IV SCH (18:29)
[2017-04-08] MEDS: LEVOFLOXACIN 750 MG/150 ML IV 150 ML IV SCH (18:29)
[2017-04-08] MEDS: RT-ALBUTEROL/IPRATROPIUM 3 ML (DUONEB) VIAL INH SCH ×2 (19:19→22:11)
[2017-04-09] VITALS (18 sets, daily range): BP systolic 108–162; BP diastolic 70–87
[2017-04-09] MEDS: methylPREDNISolone 40 MG/ML (Solu-MEDROL) VIAL IV SCH ×5 (00:05→23:24)
[2017-04-09] MEDS: CATHETER FLUSH 10 ML SYR IV PRN ×3 (00:05→23:24)
[2017-04-09] MEDS: CEFEPIME INJECTION 2,000 MG in NS (IVPB) 50 ML IV SCH ×3 (01:27→16:58)
[2017-04-09] MEDS: RT-ALBUTEROL/IPRATROPIUM 3 ML (DUONEB) VIAL INH SCH ×6 (02:45→21:28)
[2017-04-09 04:11] LABS: BASOPHILS % (AUTO) 0 % (0-10); EOSINOPHILS % (AUTO) 0 % (0-10); LYMPHOCYTES # (AUTO) 0.3 X 10^3 (1.0-4.0); LYMPHOCYTES % (AUTO) 3 % (12-44); MEAN CORPUSCULAR HEMOGLOBIN 30 PG (25-34); MEAN CORPUSCULAR HGB CONC 31 G/DL (32-36); MEAN CORPUSCULAR VOLUME 96 FL (80-99); MEAN PLATELET VOLUME 8.4 FL (7.4-10.4); MONOCYTES # (AUTO) 0.2 X 10^3 (0.0-1.0); MONOCYTES % (AUTO) 2 % (0-12); NEUTROPHILS # (AUTO) 9.5 X 10^3 (1.8-7.8); NEUTROPHILS % (AUTO) 95 % (42-75); PLATELET COUNT 219 10^3/uL (130-400); RED BLOOD COUNT 3.08 10^6/uL (4.35-5.85); RED CELL DISTRIBUTION WIDTH 14.9 % (10.0-14.5); WHITE BLOOD COUNT 9.9 10^3/uL (4.3-11.0)
[2017-04-09 04:37] LABS: ALANINE AMINOTRANSFERASE 25 U/L (0-55); ALBUMIN 2.9 GM/DL (3.2-4.5); ANION GAP 7 MMOL/L (5-14); ASPARTATE AMINO TRANSFERASE 10 U/L (5-34); BILIRUBIN,TOTAL 0.3 MG/DL (0.1-1.0); BLOOD UREA NITROGEN 21 MG/DL (7-18); BUN/CREATININE RATIO 36; CALCIUM 8.5 MG/DL (8.5-10.1); CARBON DIOXIDE 38 MMOL/L (21-32); CHLORIDE 95 MMOL/L (98-107); CREATININE SERUM 0.59 MG/DL (0.60-1.30); GFR ESTIMATED > 60; GLUCOSE 156 MG/DL (70-105); MAGNESIUM 1.9 MG/DL (1.8-2.4); PHOSPHORUS 3.5 MG/DL (2.3-4.7); SODIUM 140 MMOL/L (135-145); TOTAL PROTEIN 4.9 GM/DL (6.4-8.2)
[2017-04-09 05:09] LABS: ABG BASE EXCESS 14.3 MMOL/L (-2.5-2.5); ABG HCO3 39 MMOL/L (23-27); ABG OXYGEN SATURATION 99 % (94-100); ABG PCO2 54 MMHG (35-45); ABG PH 7.47 (7.37-7.43); ABG PO2 98 MMHG (79-93); ABG TCO2 40.9 MMOL/L (21.0-31.0)
[2017-04-09 05:13] LABS: ALLENS TEST YES-POS; PATIENT TEMP 96.7
[2017-04-09] MEDS ORDERED: MAGNESIUM 1 GM/100 ML IVPB 100 ML IV SCH (06:00)
[2017-04-09] MEDS ORDERED: KCL 20 MEQ TAB (K-DUR) PO SCH (06:00)
[2017-04-09] MEDS ORDERED: POTASSIUM CL 10MEQ/50ML IVPB 50 ML IV SCH (06:00)
[2017-04-09] MEDS: VANCOMYCIN 1 GM/NS 250 ML IVPB IV SCH ×4 (06:34→17:29)
--- NOTE | 2017-04-09 07:14 | Pulmonary Consultation ---
History of Present Illness History of Present Illness Date of Consultation 04/09/17 07:09 Time Seen by Provider: 07:09 Date of Admission History of Present Illness 61yo with hx of chronic respiratory failure, severe COPD and multiple hospitalizations presented via EMS secondary to worsening SOB and hypoxia . Last admission 03/04 he was transferred to [facility]. He has a home BiPAP however has not been using it. I am consulted for pulmonary management. Allergies and Home Medications Allergies Coded Allergies: No Known Drug Allergies (Unverified , 10/02/09) Home Medications Albuterol Sulfate 2.5 Mg/3 Ml Vial.neb, 2.5 MG IH Q6H, (Reported) Budesonide/Formoterol Fumarate 10.2 Gm Hfa.aer.ad, 2 PUFF IH BID, (Reported) Cetirizine HCl 10 Mg Tablet, 10 MG PO DAILY, (Reported) Guaifenesin 1,200 Mg Tab.er.12h, 1,200 MG PO BID, (Reported) Lorazepam 1 Mg Tablet, 1 MG PO EVERY 6-8 HOURS PRN for ANXIETY, (Reported) Montelukast Sodium 10 Mg Tablet, 10 MG PO HS, (Reported) Pantoprazole Sodium 40 Mg Tablet.dr, 40 MG PO DAILY, (Reported) Prednisone 10 Mg Tab, 0 PO UD, #30 Ref 0 Take 5 tabs(50mg)daily, decrease by 1 tab(10mg) every other day. Prescribed by: ORLANDO TOBIN on 04/14/17 1032 Temazepam 15 Mg Capsule, 15 MG PO HS, (Reported) Past Ooyqtqk-Efyleh-Sakwne Hx Patient Social History Alcohol Use: Past History (HISTORY OF ABUSE) Recreational Drug Use: No Smoking Status: Former Smoker (RECENTLY QUIT?) Type Used: Cigarettes Recent Foreign Travel: No Contact w/Someone Who Travel: No Recent Infectious Disease Expo: No Recent Hopitalizations: Yes Physical Abuse Screen: No Sexual Abuse: No Immunizations Up To Date Tetanus Booster (TDap): Unknown Seasonal Allergies Seasonal Allergies: No Surgeries HX Surgeries: Yes (HERNIA,LIVER LAC.,LEFT LEG PIN,JAW SURG.) Surgeries: Abdominal, Orthopedic Respiratory Hx Respiratory Disorders: Yes (END STAGE RESPIRATORY FAILURE--LAST INTUBATED AND RELEASED FROM [facility] 04/04/17) Respiratory Disorders: Asthma, Pneumonia, COPD Cardiovascular Hx Cardiac Disorders: Yes (diastolic heart failure with normal ejection fraction) Cardiac Disorders: High Cholesterol, Hypertension, Valvular Heart Disease Neurological Hx Neurological Disorders: No Reproductive System Hx Reproductive Disorders: No Genitourinary Hx Genitourinary Disorders: No Gastrointestinal Hx Gastrointestinal Disorders: No Musculoskeletal Hx Musculoskeletal Disorders: Yes Musculoskeletal Disorders: Degenerate Disk Disease, Chronic Back Pain Endocrine Hx Endocrine Disorders: No HEENT HX ENT Disorders: No Cancer Hx Cancer: No Psychosocial Hx Psychiatric Problems: Yes (history of alcohol dependence) Integumentary HX Skin/Integumentary Disorder: No Blood Transfusions Hx Blood Disorders: No Family Medical History Significant Family History: No Pertinent Family Hx Family Medial History: Completed stroke 19 MOTHER FH: brain tumor 19 FATHER FH: brain tumor 19 FATHER No Family History of: AIDS Review of Systems Time Seen by Provider: 11:28 Constitutional: Malaise, Sweats, Weakness, No: Chills, Fever, Other Eyes: No: Conjunctivae inflammation, Eyelid inflammation, Other, Pain, Redness , Vision change ENT: No: Ear discharge, Ear pain, Mouth pain, Mouth swelling, Nose congestion, Nose discharge, Nose pain, Other, Throat pain, Throat swelling Respiratory: Cough, SOB with excertion, Shortness of breath, Sputum, Wheezing, No: Hemoptysis Cardiovascular: Orthopnea, Palpitations, Paroxysmal Noc. Dyspnea Gastrointestinal: No: Abdominal Pain, Constipation, Diarrhea, Hematochezia, Melena, Nausea, Other, Vomiting Genitourinary: No Dysuria, No Frequency, No Incontinence, No Hematuria, No Retention, No Other Musculoskeletal: No: arm pain, back pain, foot pain, hand pain, leg pain, neck pain, other, shoulder pain Neurological: Change in speech, Confusion, Incoordination, Weakness, No: Seizures Exam Exam Vital Signs Date Time Temp Pulse Resp B/P (MAP) Pulse Ox O2 Delivery O2 Flow Rate FiO2 04/09/17 06:39 98 Nasal Cannula 2.00 04/09/17 06:00 75 23 124/78 99 NIV Bilevel 30.00 04/09/17 05:00 80 37 118/78 92 NIV Bilevel 30.00 04/09/17 04:45 73 16 99 30.00 04/09/17 04:00 99 NIV Bilevel 30 04/09/17 04:00 98.9 80 26 119/80 99 NIV Bilevel 30.00 04/09/17 03:00 79 11 116/78 98 NIV Bilevel 30.00 04/09/17 02:45 81 22 98 30.00 04/09/17 02:00 81 19 115/78 96 NIV Bilevel 30.00 04/09/17 01:00 86 04/09/17 01:00 88 10 108/73 98 NIV Bilevel 30.00 04/09/17 00:23 85 14 97 30.00 04/09/17 00:00 99 NIV Bilevel 30 04/09/17 00:00 97.2 87 13 120/83 99 NIV Bilevel 30.00 04/08/17 23:00 87 17 116/75 96 NIV Bilevel 30.00 04/08/17 22:11 76 14 97 30.00 04/08/17 22:00 77 13 114/79 98 NIV Bilevel 30.00 04/08/17 21:00 73 11 102/76 97 NIV Bilevel 30.00 04/08/17 20:52 82 15 97 30.00 04/08/17 20:00 96.7 84 25 111/71 98 NIV Bilevel 30.00 04/08/17 20:00 97 NIV Bilevel 30 04/08/17 19:26 82 30 96 30.00 04/08/17 19:00 80 04/08/17 19:00 82 26 112/75 95 NIV Bilevel 30.00 04/08/17 18:00 80 35 112/75 95 NIV Bilevel 30.00 04/08/17 17:45 116/75 NIV Bilevel 30.00 04/08/17 17:09 87 28 95 30.00 04/08/17 17:05 NIV Bilevel 30 04/08/17 17:05 98.1 NIV Bilevel 30.00 04/08/17 16:45 98.4 80 40 97 NIV Bilevel 30.00 04/08/17 16:16 98.4 99 37 158/90 95 NIV Bilevel 30.00 04/08/17 15:44 98.8 93 38 125/74 93 30.00 04/08/17 15:44 98.8 93 38 142/89 93 NIV Bilevel 30.00 04/08/17 15:12 99.5 101 43 125/74 99 60.00 04/08/17 15:00 101 43 99 60.00 04/08/17 14:58 99 Bi-pap 60 I & O 04/09/17 07:00 Intake Total 741 ml Output Total 0 ml Balance 741 ml General Appearance: Anxious, Chronically ill, Mild Distress HEENT: Normal ENT Inspection, Pharynx Normal Neck: Normal Inspection, Non Tender, Supple Respiratory: Accessory Muscle Use, Decreased Breath Sounds, Rhonci Cardiovascular: No Edema, No Gallop Capillary Refill: Less Than 3 Seconds Gastrointestinal: non tender, soft Extremity: Normal Capillary Refill Neurologic/Psychiatric: Alert, Oriented x3 Skin: Normal Color, Warm/Dry Lymphatic: No Adenopathy Results Lab Laboratory Tests 04/08/17 14:55 04/09/17 04:00 Assessment/Plan Assessment/Plan Acute on chronic respiratory failure -BiPAP PRN -Steroids -oxygen Severe oxygen dependent COPD Pneumonia/atelectasis -continue Abx for now Pt does not ever want to be on a ventilator again. He wants to be a full DNR/No CODE BLUE. Pt is mad because daughter called EMS he does not want to be in hospital. I am going to consult hospice care for patient. Will d/w issuing operator patients condition. 255 60min spent with patient and medical team Pt is doing better since admission will transfer to 4th floor. Clinical Quality Measures DVT/VTE Risk/Contraindication: Risk Factor Score Per Nursin RFS Level Per Nursing on Admit: 4+=Very High ARELI SHERIDAN DO Apr 09, 2017 07:14
--- NOTE | 2017-04-09 10:05 | Diagnostic Imaging Report ---
Portable upright radiograph of the chest. INDICATION: Shortness of breath. COMPARISON: 04/08/17. FINDINGS: Again seen mild bibasilar infiltrates or atelectasis. The cardiac size is borderline. There is background pulmonary hyperinflation likely related to COPD. IMPRESSION: Bibasilar infiltrates or atelectasis, similar to the prior exam. Dictated by: Dictated on workstation # [id number]
[2017-04-09] MEDS: ALPRAZolam 0.25 MG (XANAX) TAB PO PRN ×2 (10:25→15:59)
[2017-04-09] MEDS ORDERED: CARV12.53 PO (10:57)
[2017-04-09] MEDS ORDERED: PANT40TA3 PO (10:57)
[2017-04-09] MEDS ORDERED: BUDE10.2 IH (10:57)
[2017-04-09] MEDS ORDERED: ALBU2.5V4 IH (10:57)
[2017-04-09] MEDS ORDERED: TEMA15CA PO (10:57)
[2017-04-09] MEDS ORDERED: PRD20T PO (10:57)
[2017-04-09] MEDS ORDERED: LORA1TAB PO (10:57)
[2017-04-09] MEDS ORDERED: GUAI120013 PO (10:57)
--- NOTE | 2017-04-09 11:01 | History & Physical-Hospitalist ---
HPI History of Present Illness: HPI/Chief Complaint CC: SOB HPI: This is a 61 yoWM pt of [facility] here frequently for COPD and CHF previously on hospice. Presented to ER with SOB, he is adamant about DNR. Conferred with Dr. Agustin, will send to floor to do what we can, then hopefully DC on hospice. Vital signs stable, WBC 9.9, Hgb 9.1, ABG 7.27/94/229 which is 7.47/54/98 today , CXR reveals bilateral atx. Patient Interview: Palliative care was interviewing pt upon interview. Physical exam stable. Edema still present. Pt states that PT worked with pt at [facility], but only a small amount. He seems that he would have been more appreciative with more PT Pt was moved from ICU12 to 425 Plan: Palliative Care consult PT eval Scribed by Neela Crawford under the direct supervision of Dr. Tavares. Source: patient Exam Limitations: no limitations Date Seen 04/09/17 Time Seen by Provider: 10:00 Attending Physician Maria T Tavares DO PCP Natasha Goins DO Referring Physician Date of Admission Apr 08, 2017 at 16:14 Home Medications & Allergies Home Medications Reviewed patient Home Medication Reconciliation Form Allergies Allergies Coded Allergies No Known Drug Allergies (Ltqyfargqs62/23/09) Past Aibqnup-Zglyrf-Ymszca Hx Patient Social History Marrital Status: single Employed/Student: unemployed Alcohol Use: Past History (HISTORY OF ABUSE) Recreational Drug Use: No Smoking Status: Former Smoker (RECENTLY QUIT?) Type Used: Cigarettes Physical Abuse Screen: No Sexual Abuse: No Recent Foreign Travel: No Contact w/other who traveled: No Recent Hopitalizations: Yes Recent Infectious Disease Expo: No Immunizations Up To Date Tetanus Booster (TDap): Unknown Seasonal Allergies Seasonal Allergies: No Surgeries HX Surgeries: Yes (HERNIA,LIVER LAC.,LEFT LEG PIN,JAW SURG.) Surgeries: Abdominal, Orthopedic Respiratory Hx Respiratory Disorders: Yes (END STAGE RESPIRATORY FAILURE--LAST INTUBATED AND RELEASED FROM [facility] 04/04/17) Cardiovascular Hx Cardiovascular Disorders: Yes (diastolic heart failure with normal ejection fraction) Cardiac Disorders: High Cholesterol, Hypertension, Valvular Heart Disease Neurological Hx Neurological Disorders: No Reproductive System Hx Reproductive Disorders: No Genitourinary Hx Genitourinary Disorders: No Gastrointestinal Hx Gastrointestinal Disorders: No Musculoskeletal Hx Musculoskeletal Disorders: Yes Musculoskeletal Disorders: Degenerate Disk Disease, Chronic Back Pain Endocrine Hx Endocrine Disorders: No HEENT HX ENT Disorders: No Cancer Hx Cancer: No Psychosocial Hx Psychiatric Problems: Yes (history of alcohol dependence) Integumentary HX Skin/Integumentary Disorder: No Blood Transfusions Hx Blood Disorders: No Family Medical History Significant Family History: No Pertinent Family Hx Family Hx: Completed stroke 19 MOTHER FH: brain tumor 19 FATHER FH: brain tumor 19 FATHER No Family History of: AIDS Review of Systems Constitutional: see HPI, weakness EENTM: no symptoms reported Respiratory: dyspnea on exertion, short of breath Cardiovascular: no symptoms reported Gastrointestinal: no symptoms reported Genitourinary: no symptoms reported Musculoskeletal: no symptoms reported Skin: no symptoms reported Psychiatric/Neurological: No Symptoms Reported All Other Systems Reviewed Negative Unless Noted: Yes Physical Exam Physical Exam Vital Signs Vital Sign - Last 12Hours 04/08/17 04/08/17 04/08/17 14:58 15:00 15:12 Temp 99.5 Pulse 101 Resp 43 B/P (MAP) 125/74 Pulse Ox 99 O2 Delivery Bi-pap O2 Flow Rate 60.00 FiO2 60 Capillary Refill : Less Than 3 Seconds General Appearance: No Apparent Distress, WD/WN, Chronically ill, Thin Eyes: Bilateral Eye Normal Inspection, Bilateral Eye PERRL HEENT: PERRL/EOMI, Normal ENT Inspection, Pharynx Normal Neck: Full Range of Motion, Normal Inspection, Non Tender, Supple, Carotid Bruit Respiratory: Chest Non Tender, No Accessory Muscle Use, No Respiratory Distress , Decreased Breath Sounds, Wheezing Cardiovascular: Regular Rate, Rhythm, No Edema, No Gallop, No JVD, No Murmur, Normal Peripheral Pulses Gastrointestinal: Normal Bowel Sounds, No Organomegaly, No Pulsatile Mass, Non Tender, Soft Back: Normal Inspection, No CVA Tenderness, No Vertebral Tenderness Extremity: Normal Capillary Refill, Normal Inspection, Normal Range of Motion, Non Tender, No Calf Tenderness, Swelling (2+) Neurologic/Psychiatric: Alert, Oriented x3, No Motor/Sensory Deficits, Normal Mood/Affect Skin: Normal Color, Warm/Dry Lymphatic: No Adenopathy Results Results/Procedures Lab Laboratory Tests 04/08/17 14:55 04/09/17 04:00 Assessment/Plan Admission Diagnosis Assessment: Acute on chronic respiratory failure Hypercapnia Volume overload Lower extremity edema End-stage of life process Assessment and Plan Plan: Moved to fourth floor Oxygen DO NOT RESUSCITATE Palliative care Poor prognosis Clinical Quality Measures DVT/VTE Risk/Contraindication: Risk Factor Score Per Nursin RFS Level Per Nursing on Admit: 4+=Very High MARIA T TAVARES DO Apr 09, 2017 11:01
--- NOTE | 2017-04-09 14:22 | Physical Therapy Evaluation ---
PT Evaluation-General Medical Diagnosis Admission Date Apr 08, 2017 at 16:14 Medical Diagnosis: weakness Onset Date: Apr 08, 2017 Therapy Diagnosis Therapy Diagnosis: impaired mobility, strength, endurance Height/Weight Height (Feet): 5 Height (Inches): 3.00 Weight (Pounds): 163 Weight (Ounces): 6.4 Precautions Precautions/Isolations: Fall Prevention, Standard Precautions Referral Physician: Maria T Glass DO Reason for Referral: Evaluation/Treatment Medical History Pertinent Medical History: COPD, HTN, Smoking Additional Medical History history of alcohol abuse, end stage respiratory failure - last intubated 02/2017 and released from [facility] 04/06/17, high cholesterol, valvular heart disease, diastolic heart failure with normal ejection fraction, DDD, chronic back pain, surg (hernia, liver, left leg pin, jaw surg) Current History went to ER with SOB Reviewed History: Yes Social History Home: [facility] Prior/Core FIM Prior Level of Function Functional [place] Measure 0=Not Assessed/NA 4=Minimal Assistance 1=Total Assistance 5=Supervision or Setup 2=Maximal Assistance 6=Modified [place] 3=Moderate Assistance 7=Complete [place] Bed Mobility: 6 Transfers (B,C,W/C) (FIM): 6 Gait: 1 Patient was using a rolling walker short distances PT Evaluation-Current Subjective Patient in recliner pre tx, agrees to PT, no complaints of pain. Patient is very SOB just with talking. Pt/Family Goals "to go home and do what he wants" Objective Patient Orientation: Person, Place, Situation Attachments: Oxygen 3L of O2 nasal canula ROM/Strength ROM Lower Extremities WNL Strenght Lower Extremities 4-/5 gross bilateral lower extremities Neuromuscular (Tone, Coordination, Reflexes) WNL Sensory Vision: Functional Hearing: Functional Transfers Functional [place] Measure 0=Not Assessed/NA 4=Minimal Assistance 1=Total Assistance 5=Supervision or Setup 2=Maximal Assistance 6=Modified [place] 3=Moderate Assistance 7=Complete [place] Transfers (B, C, W/C) (FIM): 4 Supine to/from Sit: 4 sit to stand CGA Gait Mode of Locomotion: Walk Anticipated Mode of Locomotion: Walk Gait (FIM): 2 Distance: 60' Gait Level of Assist: 4 Gait Persons Needed: 1 Gait Assistive Device: FWW Comments/Gait Description Patient can ambulate 60' with a rolling walker with CGA, cues for purse lip breathing. Patient gets very SOB, needs rest breaks (standing). O2 was 97% when we got back to his room. Balance Sitting Static: Normal Sitting Dynamic: Normal Standing Static: Fair Standing Dynamic: Fair Treatment seated exercises x15 AP, LAQ, hip flexion Assessment/Needs Patient has impaired mobility, strength, endurance, gets very SOB Rehab Potential: Poor PT Collar Folder Operator Goals Collar Folder Operator Goals PT [facility] Goals Time Frame: Apr 16, 2017 Transfers (B,C,W/C) (FIM): 5 Gait (FIM): 2 Distance: 100' Gait Level of Assist: 5 Gait Assistive Device: FWW PT Plan Problem List Problem List: Activity Tolerance, Functional Strength, Safety, Balance, Gait, Transfer, Bed Mobility Treatment/Plan Treatment Plan: Continue Plan of Care Treatment Plan: Bed Mobility, Education, Functional Activity Junior, Functional Strength, Gait, Safety, Therapeutic Exercise, Transfers Treatment Duration: Apr 16, 2017 # of days/week 5-6 Visits Per Week: 5-6 Minutes/Day (M-F): 15-30 Minutes/Day (Sat/R[place]): 15-30 Pt/Family Agrees w/Plan: Yes Safety Risks/Education Patient Education: Gait Training, Transfer Techniques, Correct Positioning, Safety Issues Teaching Recipient: Patient Teaching Methods: Demonstration, Discussion Response to Teaching: Reinforcement Needed Discharge Recommendations Plan Patient will perform bed mobility and transfer training, balance and endurance training, functional strengthening, stair training, gait training, and education , to improve functional mobility and independence at home. Therapy D/C Recommendations: Home w/ Family Support, Snf (TCU/NH) Time/GCodes Time In: 1345 Time Out: 1415 Total Billed Treatment Time: 30 Total Billed Treatment 1 visit [facility] 15' GT 15' EPI VINCENT PT Apr 09, 2017 14:22
[2017-04-09] MEDS: LEVOFLOXACIN 750 MG/150 ML IV 150 ML IV SCH (16:00)
[2017-04-10] MEDS: CEFEPIME INJECTION 2,000 MG in NS (IVPB) 50 ML IV SCH ×3 (00:34→17:46)
[2017-04-10] MEDS: ALPRAZolam 0.25 MG (XANAX) TAB PO PRN ×4 (00:38→21:32)
[2017-04-10] MEDS: RT-ALBUTEROL/IPRATROPIUM 3 ML (DUONEB) VIAL INH SCH ×6 (02:07→22:01)
[2017-04-10 03:55] VITALS: BP 125/70
[2017-04-10] MEDS ORDERED: TROUGH ORDER-PHARMACY XX NR (05:00)
[2017-04-10 05:03] LABS: MAGNESIUM 1.8 MG/DL (1.8-2.4); PHOSPHORUS 2.7 MG/DL (2.3-4.7)
[2017-04-10] MEDS: methylPREDNISolone 40 MG/ML (Solu-MEDROL) VIAL IV SCH ×4 (05:26→23:11)
[2017-04-10] MEDS: CATHETER FLUSH 10 ML SYR IV PRN ×2 (05:26→23:11)
[2017-04-10] MEDS: VANCOMYCIN 1 GM/NS 250 ML IVPB IV SCH ×2 (05:27)
[2017-04-10 07:04] LABS: BILIRUBIN,URINE NEGATIVE (NEGATIVE); KETONES,URINE NEGATIVE (NEGATIVE); LEUKOCYTE ESTERASE ,URINE NEGATIVE (NEGATIVE); NITRITE,URINE NEGATIVE (NEGATIVE); PH,URINE 7 (5-9); PROTEIN,URINE 2+ (NEGATIVE); UROBILINOGEN,URINE NORMAL (NORMAL)
[2017-04-10 07:35] VITALS: BP 130/70
[2017-04-10 07:46] LABS: SQUAMOUS EPITHELIAL CELL,UR 0-2 /HPF
--- NOTE | 2017-04-10 08:36 | Diagnostic Imaging Report ---
INDICATION: Shortness of breath. COMPARISON: 04/09/2017. FINDINGS: There continues to be mild obstructive interstitial lung disease. The infiltrates are slightly more prominent in the lung bases. Small pleural effusion on the left remains present. IMPRESSION: Continued mild obstructive interstitial lung disease with basilar infiltrates and small left basilar effusion again noted. Dictated by: Dictated on workstation # [id number]
--- NOTE | 2017-04-10 09:22 | Physical Therapy Daily Note ---
PT Daily Note-Current Subjective States that he is okay. Transfers Functional [place] Measure 0=Not Assessed/NA 4=Minimal Assistance 1=Total Assistance 5=Supervision or Setup 2=Maximal Assistance 6=Modified [place] 3=Moderate Assistance 7=Complete IndependenceIRFPAI Quality Coding Scale 6 Independent with activity with or without an assistive device 5 Patient requires set up or clean up by helper. Patient completes activity by themselves 4 Supervision or touching assist (CGA). Celina provide cues , steadying assist 3 The helper provides less than half the effort to complete the activity 2 The helper provides more than half the effort to complete the activity 1 Dependent. The helper does all the effort to complete an activity 7 Patient refused to complete or attempt activity 9 The patient did not perform the activity before the current illness or injury 88 Not attempted due to Medical conditions or safety concerns Transfers (B, C, W/C) (FIM): 5 Sit to/from Stand: 5 Gait Training Gait (FIM): 5 Distance (FIM): 3=150 ft Distance: 100' Gait Level of Assist: 5 Gait Persons Needed: 1 Gait Assistive Device: FWW Assessment Current Status: Excellent Progress Patient had considerable SOB during gait. SPO2 was 95%. PT Stabber Goals Stabber Goals PT [facility] Goals Time Frame: Apr 16, 2017 Transfers (B,C,W/C) (FIM): 5 Gait (FIM): 2 Distance: 100' Gait Level of Assist: 5 Gait Assistive Device: FWW PT Plan Treatment/Plan Treatment Plan: Continue Plan of Care Treatment Plan: Bed Mobility, Education, Functional Activity Junior, Functional Strength, Gait, Safety, Therapeutic Exercise, Transfers Treatment Duration: Apr 16, 2017 Visits Per Week: 5-6 Minutes/Day (M-F): 15-30 Minutes/Day (Sat/R[place]): 15-30 Time/GCodes Time In: 0900 Time Out: 0915 Total Billed Treatment Time: 15' Total Billed Treatment 1, GT x 15 G Codes Necessary: ALISSON Young PT Apr 10, 2017 09:22
[2017-04-10 11:44] VITALS: BP 138/73
[2017-04-10 15:30] VITALS: BP 128/72
[2017-04-10] MEDS: LEVOFLOXACIN 750 MG/150 ML IV 150 ML IV SCH (18:19)
[2017-04-10] MEDS: VANCOMYCIN 1250 MG/NS 250 ML IVPB IV SCH ×2 (20:07)
[2017-04-10 20:29] VITALS: BP 136/72
[2017-04-10 23:34] VITALS: BP 116/66
[2017-04-11] MEDS: CEFEPIME INJECTION 2,000 MG in NS (IVPB) 50 ML IV SCH ×3 (00:54→17:58)
[2017-04-11] MEDS: RT-ALBUTEROL/IPRATROPIUM 3 ML (DUONEB) VIAL INH SCH ×6 (03:15→22:27)
[2017-04-11] MEDS: ALPRAZolam 0.25 MG (XANAX) TAB PO PRN ×3 (03:53→17:58)
[2017-04-11 05:00] VITALS: BP 128/78
[2017-04-11] MEDS: methylPREDNISolone 40 MG/ML (Solu-MEDROL) VIAL IV SCH ×3 (05:54→17:58)
[2017-04-11] MEDS: CATHETER FLUSH 10 ML SYR IV PRN (05:55)
[2017-04-11] MEDS: VANCOMYCIN 1250 MG/NS 250 ML IVPB IV SCH ×4 (05:55→20:05)
[2017-04-11 08:16] VITALS: BP 125/69
[2017-04-11 12:00] VITALS: BP 140/68
--- NOTE | 2017-04-11 12:03 | Progress Note (SOAP) ---
Subjective Subjective/Events-last exam Pt not sure he wants to go to hospice or continue care. Is concerned eh will have to stay in bed if he goes home on hospice. ALso, his 17yo daughter is the only one that will be his caregiver, and he is concerned taht she will be overwhelmed. Review of Systems Date Seen by Provider: Apr 10, 2017 Time Seen by Provider: 10:30 General: No Chills Pulmonary: Cough Objective Exam Last Set of Vital Signs Vital Signs Date Time Temp Pulse Resp B/P (MAP) Pulse Ox O2 Delivery O2 Flow Rate FiO2 04/11/17 11:12 99 Nasal Cannula 3.00 04/11/17 08:16 98.9 116 22 125/69 04/09/17 04:00 30 Capillary Refill : Less Than 3 Seconds I&O Intake and Output 04/11/17 00:00 Intake Total 2187.5 ml Output Total 1450 ml Balance 737.5 ml Intake Oral 1625 ml IV Total 562.5 ml Output Urine Total 1450 ml General: Alert, Oriented X3, Cooperative, No Acute Distress Lungs: Other (good bilateral air exchange, good effort, rhonchi throughout) Heart: Regular Rate, Normal S1, Normal S2, No Murmurs, Gallops, Rubs Abdomen: Normal Bowel Sounds, Soft, No Tenderness, No Hepatosplenomegaly, No Masses Extremities: No Clubbing (positive for clubbing), No Cyanosis, No Edema Results/Procedures Lab Microbiology 04/08/17 Blood Culture - Preliminary, Resulted No growth 04/10/17 Gram Stain - Final, Resulted 04/10/17 Sputum Culture - Preliminary, Resulted Gram Negative Ernesto Yeast Species Assessment/Plan Assessment/Plan Plan END STAGE COPD HYPERCAPNEIC ACUTE ON CHRONIC RESPIRATORY FAILURE VOLUME OVERLOAD CHRONIC VENOUS INSUFFICIENCY Long talk with patient about his prognosis, which is very poor. He appears open to hospice but has some misunderstandings. We agreed that a hospice nurse would come out to him and talk about what services they offer and what he would be able to do (ie, not having to be bedridden). He is adamant that he does not want to be intubated and taht he wants to be a DNR. I am not going to change any meds around today as I do anticipate that he will choose palliative care, and he is already on maximal medical management. Diagnosis/Problems: Clinical Quality Measures DVT/VTE Risk/Contraindication: Risk Factor Score Per Nursin RFS Level Per Nursing on Admit: 4+=Very High DANITA FLOWERS MD Apr 11, 2017 12:03
--- NOTE | 2017-04-11 12:12 | Progress Note (SOAP) ---
Subjective Subjective/Events-last exam Pt has decided to choose hospice services. Very concerned about when he will be discharged. Wants to stay in hospital until Wednesday bc his family members are working and won't be there to help him get set up. Family wants him to reverse his DNR decision. Review of Systems Date Seen by Provider: Apr 11, 2017 Time Seen by Provider: 10:35 Pulmonary: No Dyspnea, Cough Objective Exam Last Set of Vital Signs Vital Signs Date Time Temp Pulse Resp B/P (MAP) Pulse Ox O2 Delivery O2 Flow Rate FiO2 04/11/17 11:12 99 Nasal Cannula 3.00 04/11/17 08:16 98.9 116 22 125/69 04/09/17 04:00 30 Capillary Refill : Less Than 3 Seconds I&O Intake and Output 04/11/17 00:00 Intake Total 2187.5 ml Output Total 1450 ml Balance 737.5 ml Intake Oral 1625 ml IV Total 562.5 ml Output Urine Total 1450 ml General: Alert, Oriented X3, Cooperative, No Acute Distress Lungs: Other (rhonchi throughout, good effort) Heart: Regular Rate, Normal S1, Normal S2, No Murmurs, Gallops, Rubs Abdomen: Normal Bowel Sounds, Soft, No Tenderness, No Hepatosplenomegaly, No Masses Psych/Mental Status: Mental Status NL, Mood NL Results/Procedures Lab Microbiology 04/08/17 Blood Culture - Preliminary, Resulted No growth 04/10/17 Gram Stain - Final, Resulted 04/10/17 Sputum Culture - Preliminary, Resulted Gram Negative Ernesto Yeast Species Assessment/Plan Assessment/Plan Plan END STAGE COPD HYPERCAPNEIC ACUTE ON CHRONIC RESPIRATORY FAILURE VOLUME OVERLOAD CHRONIC VENOUS INSUFFICIENCY 04/10 - Long talk with patient about his prognosis, which is very poor. He appears open to hospice but has some misunderstandings. We agreed that a hospice nurse would come out to him and talk about what services they offer and what he would be able to do (ie, not having to be bedridden). He is adamant that he does not want to be intubated and taht he wants to be a DNR. I am not going to change any meds around today as I do anticipate that he will choose palliative care, and he is already on maximal medical management. 04/11 - Discussed with Remington that I recommend a DNR status in his situation. It would be futile to code him. He will likely not come off the vent and require a trach. He responded taht he did not want to be on a vent and NEVER wanted a trach - he is very adamant about not being on a trach. For that reason , he voiced to me that he wants to stay a DNR. We will also plan for social service and palliative care to coordinate his discharge when they return tomorrow. COntinue current management until then. Diagnosis/Problems: Clinical Quality Measures DVT/VTE Risk/Contraindication: Risk Factor Score Per Nursin RFS Level Per Nursing on Admit: 4+=Very High DANITA FLOWERS MD Apr 11, 2017 12:12
[2017-04-11 15:45] VITALS: BP 144/72
[2017-04-11] MEDS: LEVOFLOXACIN 750 MG/150 ML IV 150 ML IV SCH (16:22)
[2017-04-11 20:00] VITALS: BP 155/80
[2017-04-12] VITALS: BP 138/77
[2017-04-12] MEDS: ALPRAZolam 0.25 MG (XANAX) TAB PO PRN ×4 (00:16→16:54)
[2017-04-12] MEDS: methylPREDNISolone 40 MG/ML (Solu-MEDROL) VIAL IV SCH ×2 (00:16→05:29)
[2017-04-12] MEDS: CEFEPIME INJECTION 2,000 MG in NS (IVPB) 50 ML IV SCH ×2 (00:16→10:35)
[2017-04-12] MEDS: RT-ALBUTEROL/IPRATROPIUM 3 ML (DUONEB) VIAL INH SCH ×6 (01:34→22:20)
[2017-04-12] MEDS ORDERED: TROUGH ORDER-PHARMACY XX NR (05:00)
[2017-04-12] MEDS: VANCOMYCIN 1250 MG/NS 250 ML IVPB IV SCH ×2 (07:55)
[2017-04-12 08:00] VITALS: BP 151/87
--- NOTE | 2017-04-12 11:03 | Progress Note (SOAP) ---
Subjective Subjective/Events-last exam Afebrile, no acute events. He affirms he is wanting to go home with hospice and remain DNR, but will not have someone at home to help him until Wednesday. Review of Systems Date Seen by Provider: Apr 12, 2017 Time Seen by Provider: 10:15 Objective Exam Last Set of Vital Signs Vital Signs Date Time Temp Pulse Resp B/P (MAP) Pulse Ox O2 Delivery O2 Flow Rate FiO2 04/12/17 10:35 98 High Flow N/C 3.00 04/12/17 08:00 97.9 126 16 151/87 04/09/17 04:00 30 Capillary Refill : Less Than 3 Seconds I&O Intake and Output 04/12/17 00:00 Intake Total 2405.0 ml Output Total 1600 ml Balance 805.0 ml Intake Oral 1630 ml IV Total 775.0 ml Output Urine Total 1600 ml # Voids 3 # Bowel Movements 1 General: Alert, No Acute Distress Lungs: Other (appears short of breath) Psych/Mental Status: Mental Status NL, Mood NL Results/Procedures Lab Laboratory Tests 04/12/17 05:48: Vancomycin Level Trough 16.0 Microbiology 04/08/17 Blood Culture - Preliminary, Resulted No growth 04/10/17 Gram Stain - Final, Complete 04/10/17 Sputum Culture - Final, Complete Stenotrophomonas Maltophilia Presumptive Marian Albicans See Comments Assessment/Plan Assessment/Plan Plan END STAGE COPD- planning for discharge with hospice as soon as safe d/c plan in place for home, (see below) 04/12- Change solumedrol to prednisone taper today, d/c vancomycin and cefepime which do not cover the bacteria grown from sputum and given his change in goals of care. Continue levofloxacin (change to PO) to complete 7 day course HYPERCAPNEIC ACUTE ON CHRONIC RESPIRATORY FAILURE VOLUME OVERLOAD CHRONIC VENOUS INSUFFICIENCY From Dr. Woodward's notes "04/10 - Long talk with patient about his prognosis, which is very poor. He appears open to hospice but has some misunderstandings. We agreed that a hospice nurse would come out to him and talk about what services they offer and what he would be able to do (ie, not having to be bedridden). He is adamant that he does not want to be intubated and taht he wants to be a DNR. I am not going to change any meds around today as I do anticipate that he will choose palliative care, and he is already on maximal medical management. 04/11 - Discussed with Remington that I recommend a DNR status in his situation. It would be futile to code him. He will likely not come off the vent and require a trach. He responded that he did not want to be on a vent and NEVER wanted a trach - he is very adamant about not being on a trach. For that reason , he voiced to me that he wants to stay a DNR. We will also plan for social service and palliative care to coordinate his discharge when they return tomorrow. Continue current management until then." Diagnosis/Problems: Clinical Quality Measures DVT/VTE Risk/Contraindication: Risk Factor Score Per Nursin RFS Level Per Nursing on Admit: 4+=Very High ORLANDO TOBIN MD Apr 12, 2017 11:02 am
[2017-04-12] MEDS: LEVOFLOXACIN 750 MG TAB (LEVAQUIN) PO SCH (11:47)
[2017-04-12] MEDS: predniSONE 10 MG TAB PO SCH (11:47)
--- NOTE | 2017-04-12 12:01 | Physical Therapy Daily Note ---
PT Daily Note-Current Subjective Patient agrees to PT. Pain Numeric Pain Scale: 0-No Pain Location: No Pain Reported Mental Status Patient Orientation: Normal For Age Attachments: Oxygen, IV Transfers Functional [place] Measure 0=Not Assessed/NA 4=Minimal Assistance 1=Total Assistance 5=Supervision or Setup 2=Maximal Assistance 6=Modified [place] 3=Moderate Assistance 7=Complete IndependenceIRFPAI Quality Coding Scale 6 Independent with activity with or without an assistive device 5 Patient requires set up or clean up by helper. Patient completes activity by themselves 4 Supervision or touching assist (CGA). Doyle provide cues , steadying assist 3 The helper provides less than half the effort to complete the activity 2 The helper provides more than half the effort to complete the activity 1 Dependent. The helper does all the effort to complete an activity 7 Patient refused to complete or attempt activity 9 The patient did not perform the activity before the current illness or injury 88 Not attempted due to Medical conditions or safety concerns Transfers (B, C, W/C) (FIM): 6 Scootin Sit to/from Stand: 6 Gait Training Gait (FIM): 2 Distance (FIM): 3=951-37 ft Distance: 125' Gait Level of Assist: 5 Gait Assistive Device: FWW safe and functional with FWW Assessment Ambulation to improve pulmonary function with mobility to return to home safely with ability to perform tasks at home. Patient improving and plans to dismiss to home this week. PT Fagot Heater Helper Goals Senior Care Goals PT Senior Care Goals Time Frame: Apr 16, 2017 Transfers (B,C,W/C) (FIM): 5 Gait (FIM): 2 Distance: 100' Gait Level of Assist: 5 Gait Assistive Device: FWW PT Plan Treatment/Plan Treatment Plan: Continue Plan of Care Treatment Plan: Bed Mobility, Education, Functional Activity Junior, Functional Strength, Gait, Safety, Therapeutic Exercise, Transfers Treatment Duration: Apr 16, 2017 Visits Per Week: 5-6 Minutes/Day (M-F): 15-30 Minutes/Day (Sat/Riojas): 15-30 Time/GCodes Time In: 1130 Time Out: 1140 Total Billed Treatment Time: 10 Total Billed Treatment 1 visit [facility] 10 min FLORENCE PRESSLEY PT Apr 12, 2017 12:01
[2017-04-12 16:20] VITALS: BP 165/83
[2017-04-13 00:12] VITALS: BP 131/71
[2017-04-13] MEDS: RT-ALBUTEROL/IPRATROPIUM 3 ML (DUONEB) VIAL INH SCH ×6 (03:12→22:21)
[2017-04-13] MEDS: ALPRAZolam 0.25 MG (XANAX) TAB PO PRN ×4 (05:04→16:39)
[2017-04-13 08:00] VITALS: BP 141/73
--- NOTE | 2017-04-13 08:29 | Progress Note (SOAP) ---
Subjective Subjective/Events-last exam Afebrile, no acute events. He is concerned about having a ride home tomorrow. Review of Systems Date Seen by Provider: Apr 13, 2017 Time Seen by Provider: 08:00 Objective Exam Last Set of Vital Signs Vital Signs Date Time Temp Pulse Resp B/P (MAP) Pulse Ox O2 Delivery O2 Flow Rate FiO2 04/13/17 07:46 92 High Flow N/C 2.50 04/13/17 00:12 97.0 109 24 131/71 04/09/17 04:00 30 Capillary Refill : Less Than 3 Seconds I&O Intake and Output 04/13/17 00:00 Intake Total 2697.5 ml Output Total 2200 ml Balance 497.5 ml Intake Oral 2335 ml IV Total 362.5 ml Output Urine Total 2200 ml # Voids 1 # Bowel Movements 2 General: Alert, No Acute Distress Psych/Mental Status: Mood NL Results/Procedures Lab Microbiology 04/08/17 Blood Culture - Preliminary, Resulted No growth 04/10/17 Gram Stain - Final, Complete 04/10/17 Sputum Culture - Final, Complete Stenotrophomonas Maltophilia Presumptive Marian Albicans See Comments Assessment/Plan Assessment/Plan Plan END STAGE COPD- planning for discharge with hospice as soon as safe d/c plan in place for home- anticipating on 04/14 with Bj Alas, (see below) 04/12- Change solumedrol to prednisone taper today, d/c vancomycin and cefepime which do not cover the bacteria grown from sputum and given his change in goals of care. Continue levofloxacin (change to PO) to complete 7 day course HYPERCAPNEIC ACUTE ON CHRONIC RESPIRATORY FAILURE VOLUME OVERLOAD CHRONIC VENOUS INSUFFICIENCY From Dr. Woodward's notes "04/10 - Long talk with patient about his prognosis, which is very poor. He appears open to hospice but has some misunderstandings. We agreed that a hospice nurse would come out to him and talk about what services they offer and what he would be able to do (ie, not having to be bedridden). He is adamant that he does not want to be intubated and that he wants to be a DNR. I am not going to change any meds around today as I do anticipate that he will choose palliative care, and he is already on maximal medical management. 04/11 - Discussed with Remington that I recommend a DNR status in his situation. It would be futile to code him. He will likely not come off the vent and require a trach. He responded that he did not want to be on a vent and NEVER wanted a trach - he is very adamant about not being on a trach. For that reason , he voiced to me that he wants to stay a DNR. We will also plan for social service and palliative care to coordinate his discharge when they return tomorrow. Continue current management until then." Diagnosis/Problems: Clinical Quality Measures DVT/VTE Risk/Contraindication: Risk Factor Score Per Nursin RFS Level Per Nursing on Admit: 4+=Very High ORLANDO TOBIN MD Apr 13, 2017 8:28 am
--- NOTE | 2017-04-13 09:54 | Physical Therapy Daily Note ---
PT Daily Note-Current Subjective Patient is agreeable to ambulate. States that he needs to walk. Transfers Functional [place] Measure 0=Not Assessed/NA 4=Minimal Assistance 1=Total Assistance 5=Supervision or Setup 2=Maximal Assistance 6=Modified [place] 3=Moderate Assistance 7=Complete IndependenceIRFPAI Quality Coding Scale 6 Independent with activity with or without an assistive device 5 Patient requires set up or clean up by helper. Patient completes activity by themselves 4 Supervision or touching assist (CGA). Hayden provide cues , steadying assist 3 The helper provides less than half the effort to complete the activity 2 The helper provides more than half the effort to complete the activity 1 Dependent. The helper does all the effort to complete an activity 7 Patient refused to complete or attempt activity 9 The patient did not perform the activity before the current illness or injury 88 Not attempted due to Medical conditions or safety concerns Transfers (B, C, W/C) (FIM): 5 Sit to/from Stand: 5 Gait Training Gait (FIM): 5 Distance (FIM): 3=150 ft Distance: 150' Gait Level of Assist: 5 Gait Persons Needed: 1 Gait Assistive Device: FWW Assessment Current Status: Good Progress Patient continues to have SOB with gait. PT Salon Manager Goals Salon Manager Goals PT Jail Goals Time Frame: Apr 16, 2017 Transfers (B,C,W/C) (FIM): 5 Gait (FIM): 2 Distance: 100' Gait Level of Assist: 5 Gait Assistive Device: FWW PT Plan Treatment/Plan Treatment Plan: Continue Plan of Care Treatment Plan: Bed Mobility, Education, Functional Activity Junior, Functional Strength, Gait, Safety, Therapeutic Exercise, Transfers Treatment Duration: Apr 16, 2017 Visits Per Week: 5-6 Minutes/Day (M-F): 15-30 Minutes/Day (Sat/R[place]jas): 15-30 Time/GCodes Time In: 0940 Time Out: 0950 Total Billed Treatment Time: 10' Total Billed Treatment 1, GT x 10' G Codes Necessary: ALISSON Young PT Apr 13, 2017 09:54
[2017-04-13] MEDS: LEVOFLOXACIN 750 MG TAB (LEVAQUIN) PO SCH (10:49)
[2017-04-13] MEDS: predniSONE 10 MG TAB PO SCH (11:49)
[2017-04-13 15:36] VITALS: BP 144/78
[2017-04-13] MEDS: CATHETER FLUSH 10 ML SYR IV PRN (16:44)
[2017-04-13 23:09] VITALS: BP 130/74
[2017-04-14] MEDS: ALPRAZolam 0.25 MG (XANAX) TAB PO PRN ×3 (00:16→11:02)
[2017-04-14] MEDS: RT-ALBUTEROL/IPRATROPIUM 3 ML (DUONEB) VIAL INH SCH ×3 (02:16→10:53)
[2017-04-14 08:00] VITALS: BP 130/72
[2017-04-14] MEDS ORDERED: PRD10T PO (10:32)
--- NOTE | 2017-04-14 10:34 | Discharge Instructions ---
Discharge [facility] Discharge Medications New, Converted or Re-Newed RX: Transmitted to Pharmacy New Medications: Prednisone (Prednisone) 10 Mg Tab 0 PO UD, #30 TAB 0 Refills Take 5 tabs(50mg)daily, decrease by 1 tab(10mg) every other day. Continued Medications: Albuterol Sulfate (Albuterol Sulfate) 2.5 Mg/3 Ml Vial.neb 2.5 MG IH Q6H, EA Budesonide/Formoterol Fumarate (Symbicort 160-4.5 Mcg Inhaler) 10.2 Gm Hfa.aer.ad 2 PUFF IH BID Cetirizine HCl (Zyrtec) 10 Mg Tablet 10 MG PO DAILY, TAB Guaifenesin (Mucinex) 1,200 Mg Tab.er.12h 1200 MG PO BID, TAB Lorazepam (Lorazepam) 1 Mg Tablet 1 MG PO EVERY 6-8 HOURS PRN for ANXIETY Montelukast Sodium (Montelukast Sodium) 10 Mg Tablet 10 MG PO HS, TAB Pantoprazole Sodium (Pantoprazole Sodium) 40 Mg Tablet.dr 40 MG PO DAILY Temazepam (Temazepam) 15 Mg Capsule 15 MG PO HS Discontinued Medications: Carvedilol (Carvedilol) 12.5 Mg Tablet 12.5 MG PO Q12H Fluticasone/Vilanterol (Breo Ellipta 100-25 Mcg INH) 1 Each Blst.w.dev 1 PUFF INH DAILY, INHALER Prednisone (Prednisone) 20 Mg Tab 20 MG PO DAILY Patient Instructions Goal/Follow Up Appt: Follow up will be provided by hospice. Activity & Diet Discharge Diet: No Restrictions Activity as Tolerated: Yes Orders-Post D/C & Referrals Pneu Vac Indicated: Yes ORLANDO TOBIN MD Apr 14, 2017 10:34 am
--- NOTE | 2017-04-14 10:36 | Discharge Summary ---
Diagnosis/Chief Complaint Date of Admission Apr 08, 2017 at 4:14 pm Date of Discharge April 14, 2017 Admission Diagnosis Admission Diagnosis END STAGE COPD HYPERCAPNEIC ACUTE ON CHRONIC RESPIRATORY FAILURE VOLUME OVERLOAD CHRONIC VENOUS INSUFFICIENCY Discharge Diagnosis END STAGE COPD- planning for discharge with hospice as soon as safe d/c plan in place for home- anticipating on 04/14 with Bj Alas, (see below) 04/12- Change solumedrol to prednisone taper today, d/c vancomycin and cefepime which do not cover the bacteria grown from sputum and given his change in goals of care. Continue levofloxacin (change to PO) to complete 7 day course (last dose given 04/14 before d/c) -Prednisone taper continued on d/c Patient did decide to go home with hospice services HYPERCAPNEIC ACUTE ON CHRONIC RESPIRATORY FAILURE VOLUME OVERLOAD CHRONIC VENOUS INSUFFICIENCY From Dr. Woodward's notes "04/10 - Long talk with patient about his prognosis, which is very poor. He appears open to hospice but has some misunderstandings. We agreed that a hospice nurse would come out to him and talk about what services they offer and what he would be able to do (ie, not having to be bedridden). He is adamant that he does not want to be intubated and that he wants to be a DNR. I am not going to change any meds around today as I do anticipate that he will choose palliative care, and he is already on maximal medical management. 04/11 - Discussed with Remington that I recommend a DNR status in his situation. It would be futile to code him. He will likely not come off the vent and require a trach. He responded that he did not want to be on a vent and NEVER wanted a trach - he is very adamant about not being on a trach. For that reason , he voiced to me that he wants to stay a DNR. We will also plan for social service and palliative care to coordinate his discharge when they return tomorrow. Continue current management until then." Chief Complaint/HPI Chief Complaint/HPI From Dr. Glass's H&P "CC: SOB HPI: This is a 61 yoWM pt of [facility] here frequently for COPD and CHF previously on hospice. Presented to ER with SOB, he is adamant about DNR. Conferred with Dr. Agustin, will send to floor to do what we can, then hopefully DC on hospice. Vital signs stable, WBC 9.9, Hgb 9.1, ABG 7.27/94/229 which is 7.47/54/98 today , CXR reveals bilateral atx. Patient Interview: Palliative care was interviewing pt upon interview. Physical exam stable. Edema still present. Pt states that PT worked with pt at [place], but only a small amount. He seems that he would have been more appreciative with more PT Pt was moved from ICU12 to 425" Discharge Summary-Simple/Stand Consultations Discharge Physical Examination Allergies: Coded Allergies: No Known Drug Allergies (Unverified , 10/02/09) Vitals & I&Os Vital Sign - Last 12Hours Date Time Temp Pulse Resp B/P (MAP) Pulse Ox O2 Delivery O2 Flow Rate FiO2 04/14/17 08:45 98 High Flow N/C 3.00 60 04/14/17 08:00 98.9 138 18 130/72 Intake and Output 04/14/17 00:00 Intake Total 1550 ml Output Total 1300 ml Balance 250 ml General Appearance: Alert, Mild Distress Respiratory: Other (increased work of breathing) Neuro: Normal Speech Psych/Mental Status: Mental Status NL Hospital Course See final discharge diagnosis. Discharge Instructions to patient/family Please see electonic discharge instructions given to patient. Discharge Medications Reviewed and agree with Discharge Medication list on patient's Discharge Instruction sheet Clinical Quality Measures DVT/VTE Risk/Contraindication: Risk Factor Score Per Nursin RFS Level Per Nursing on Admit: 4+=Very High Comfort Measures/ Type of Care: Hospice Care (Home) Copy Copies To 1: IZZY Howe BETHANY N MD Apr 14, 2017 10:36 am
[2017-04-14] MEDS: LEVOFLOXACIN 750 MG TAB (LEVAQUIN) PO SCH (11:02)
[2017-04-14] MEDS: predniSONE 10 MG TAB PO SCH (11:03)
--- NOTE | 2017-04-14 12:29 | Physical Therapy Progress Note ---
Therapy Progress Note PT attempted to visit pt at 845 although pt reports discharging today so didn't want to participate in formal PT due to fear of fatigue. PT advised would try back in later am to check on pt's discharge. Pt discharged 1145 per MED/SURG staff. MIKIE AVILA FURNACE FILLER Apr 14, 2017 12:29
[2017-04-14 14:23] VITALS: BP 130/72
== END 2017-04-14 11:45 | disposition hospice, home (50) | DRG 189 ==
LOC: EDUNIT# 14:43 → ER 14:45 → ICU 16:14 → 4TH 04-09 10:01
PROVIDERS: ADMIT Internal Medicine; ATTEND Internal Medicine
DX: J96.22 Acute and chronic respiratory failure with hypercapnia (principal); J44.0 Chronic obstructive pulmonary disease with (acute) lower respiratory infection; J18.9 Pneumonia, unspecified organism; I11.0 Hypertensive heart disease with heart failure; I50.30 Unspecified diastolic (congestive) heart failure; I38 Endocarditis, valve unspecified; J45.909 Unspecified asthma, uncomplicated; Z66 Do not resuscitate; E78.00 Pure hypercholesterolemia, unspecified; D64.9 Anemia, unspecified; F10.21 Alcohol dependence, in remission; M54.9 Dorsalgia, unspecified; Z99.81 Dependence on supplemental oxygen; Z87.891 Personal history of nicotine dependence; Z74.2 Need for assistance at home and no other household member able to render care; I87.2 Venous insufficiency (chronic) (peripheral)
CPT/HCPCS: 36415; 71010; 80053; 80202; 81000; 82550; 82553; 82805; 83605; 83735; 83880; 84100; 84484; 85007; 85025; 85027; 85610; 85730; 87040; 87070; 87077; 87186; 87205; 93005; 93041; 94640; 94660; 94664; 94760; 96374